=== PATIENT | female | born 1950 | race Caucasian/White ===

== ENCOUNTER 2018-12-21 08:32 | Observation (INO) ==
[2018-12-21] MEDS ORDERED: CATAPRES TAB 0.1 MG PO ONE (09:05)
[2018-12-21] MEDS ORDERED: CATAPRES TAB 0.1 MG ONE (09:12)
--- NOTE | 2018-12-21 09:16 | DR.DIZZY ---
HPI Time seen Time Seen by Provider: 12/21/18 08:46 PCP Primary Care Physician: NILESH Gilbert NAIL GALVANIZER Complaint Chief Complaint Doctor Comments: 68yo female presented for dizziness. Pt reports waking up around 6am and feeling lightheaded and impaired balance. She reports also feeling nauseated. Denies worsening with change of position but worse with ambulation. She has no pain. Denies any OZUNA, vision changes, focal weakness, CP or SOB. She has not been taking her BP medication for some time and today decided to take it. She is also DM and metformin and has neuropathy. Chief Complaint:: PT C/O WAKING UP THIS AM AND STAGGERING AND FEELING DIZZY, PT DENIES ANY PAIN AND STATES SHE TOOK HER BLOOD SUGAR AT HOME 108 ..BR Self Treatment fo Chief Complaint: PT STATES SHE TOOK 2 B/P MEDS THIS AM THINKING IT WAS HER B/P AND THAT SHE HAS NOT BEEN TAKING THEM ,BR Nurses Notes Reviewed Nurses Notes Review: Yes Source History Provided: Patient Mode of Arrival Mode of Arrival: Ambulatory Timing Onset of Chief Complaint: 12/21/18 Came on: On Awakening Symptom Onset: Unknown Duration Duration: Constant Duration: Hours Location of Weakness Weakness Location: None Context Onset: With light exertion Does pt take pot. toxic medication?: No History of: DM; denies CVA and TIA Stroke Symptoms: Ataxia and Dizziness; denies Aphasia, Weakness of limb, Numbness of limbs and Slurring Severity Severity: Normal activity level Modifying factors Worsens: Other (walking); denies Change in Position and Turning Head Associated signs and symptoms Associated Signs and Symptoms: Imbalance and Nausea; denies Near Syncope, Vertigo, Numb, Change of Vision, Fever, Headache and Vomiting PMH PMH Past Medical History: Yes Past Medical History: Diabetes, Dyslipidemia, Headaches, Hypertension and Hypothyroidism Past Surgical History: Yes Surgical History: Cholecystectomy and SECRETARY RECEPTIONIST Surgery Past Surgical History Comment: TUBAL . Family History History of Family Medical Conditions: No Family Medical History: Diabetes Mellitus and Hypertension Social History Does patient currently use any type of tobacco product: No Have you used tobacco products in the last 12 months: No Type of Tobacco Use: None Does any household member use tobacco: No Alcohol Use: None Do you use any recreational Drugs:: No Lives With: Family Lives Where: Home infectious screening In the last 2 months have you had wt loss of >10#?: NO Have you had fever, night sweats or hemotysis?: No Have you traveled outside the country in the last 6 months?: No Isolation: Standard ROS Review of Systems Constitutional: No Symptoms Reported; negative Fever, Weakness and Fatigue Eyes: negative Blurred Vision and Photophobia ENTM: negative Nose Congestion Respiratoy: negative Short of Breath Cardiovascular: negative Chest Pain Gastrointestinal/Abdominal: Diarrhea and Nausea; negative Abdominal Pain and V omiting Neurological: Problems Walking; negative Headache, Numbness and Weakness Musculoskeletal: negative Joint Swelling and Muscle Pain Integumentary: negative Wound Hematologic/Lymphatic: negative Lymphadenopathy Endocrine: Increased Thirst and Increased Urine; negative Decreased Appetite Psychiatric: negative Depression All Other Systems: Reviewed and Negative PE Vital Signs Vitals: Temperature 97.3 F Pulse Rate 82 Respiratory Rate 18 Blood Pressure [Left Arm] 131/68 Blood Pressure 192/85 O2 Sat by Pulse Oximetry 99 General Limitations: No Limitations General Appearance: Alert and In No Apparent Distress Head Head Exam: Normal Inspection, Atraumatic and Normocephalic Eyes Eye exam: Normal Appearance, PERRL and EOMI; negative Scleral Icterus and Nystagmus Pupils: Regular, Round: Left ENT ENT Exam: Normal Exam, Normal Oropharynx, Normal External Ear Exam, Mucous Membranes Moist and TM's Normal Bilaterally Neck Neck Exam: Normal Inspection and Full ROM; negative Tenderness, Meningismus and Lymphadenopathy Respiratory Respiratory Exam: Normal Lung Sounds Bilat; negative Respiratory Distress Respiratory Exam: Bilateral: Clear to Auscultation Cardiovascular Cardiovascular Exam: Regular Rate Abdominal Exam Abdominal Exam: Normal Inspection, Normal Bowel Sounds and Soft; negative Distention and Tenderness Extremeties Extremities Exam: Normal Inspection and Full ROM; negative Tenderness and Normal Capillary Refill Neurologic Neurological Exam: Alert, Oriented X3, CN II-XII Intact, Normal Gait and Reflexes Normal; negative Motor Sensory Deficit Patient Oriented To: Person, Place and Time Speech: Fluid Speech Cranial Nerve Exam: EOM Function (II, III, IV, ): Normal, Facial Sensation (V): Normal, Facial Palsy (VII): Normal, Spinal Accessory Function (XI): Normal and Tongue Deviation: Normal Cerebellar Function: Finger to Nose: Normal and Heel to Benitez: Normal Cerebellar Function: Normal Gait Motor Strength - LUE: 5/5 Motor Strength - RUE: 5/5 Motor Strength - LLE: 5/5 Motor Strength - RLE: 5/5 Psychiatric Psychiatric Exam: Normal Affect and Normal Mood Skin Skin Exam: Warm and Dry MDM Additional Information Obtained Additional Information Obtained From: Old Records Differential Diagnosis Differential Diagnosis: CVA, TIA, Central Vertigo and Other (abdominal pain) COURSE Reevaluation 1st: Unchanged (pt still reports lightheadness and difficulty walking/nauseated and BP still elevated after Clonidine. Will give Hydralazine 10mg x1. D/w pt labs and imaging. Will cosnult Dr. Roa for admission.) Consultation Consultation Comments: 10:50am: spoke to dr. Roa and will admit and see in Hospital Education/Counseling Education/Counseling: Patient, Education and Counseling Educated On: Treatment, Diagnosis, Prognosis and Needs for Follow Up (pcp) ROR Labs Reviewed Laboratory Results Reviewed?: Yes Result Diagrams: 12/21/18 09:19 12/21/18 09: Laboratory: WBC 7.8 X10^3/uL (3.6-10.0) 12/21/18 09: RBC 3.99 X10^6/uL (3.5-5.4) 12/21/18 09: Hgb 12.9 g/dL (12.0-16.0) 12/21/18 09: Hct 36.8 % (36.0-47.0) 12/21/18 09: MCV 92.1 fL (80.0-100.0) 12/21/18: MCH 32.2 pg (27.0-34.0) 12/21/18 09: MCHC 35.0 g/dL (33.0-35.0) 12/21/18: RDW 13.0 % (11.6-16.5) 12/21/18: Plt Count 205 X10^3/uL (150.0-450.0) 12/21/18 09: MPV 8.2 fL (7.4-11.0) 12/21/18: Neut % (Auto) 78.8 % (42.0-75.0) H 12/21/18 09: Lymph % (Auto) 15.1 % (21.0-51.0) L 12/21/18: [place] % (Auto) 3.9 % (0.0-13.0) 12/21/18: Eos % (Auto) 1.8 % (0.9-2.9) 12/21/18 09:19 Baso % (Auto) 0.4 % (0.2-1.0) 12/21/18 09:19 Neut # (Auto) 6.2 x10^3/uL (2.2-4.8) H 12/21/18 09:19 Lymph # (Auto) 1.2 X10^3/uL (1.3-2.9) L 12/21/18 09:19 [place] # (Auto) 0.3 x10^3/uL (0.3-0.8) 12/21/18 09:19 Eos # (Auto) 0.1 x10^3/uL (0.0-0.2) 12/21/18 09:19 Baso # (Auto) 0.0 X10^3/uL (0.0-0.1) 12/21/18 09:19 Absolute Nucleated RBC 0.0 /100WBC 12/21/18 09:19 Sodium 137 mmol/L (136-145) 12/21/18 09:19 Corrected Sodium 138 mmol/L (136-145) 12/21/18 09:19 Potassium 3.5 mmol/L (3.5-5.1) 12/21/18 09:19 Chloride 105 mmol/L (98-107) 12/21/18 09:19 Carbon Dioxide 25.1 mmol/L (21-32) 12/21/18 09:19 BUN 17 mg/dL (7-18) 12/21/18 09:19 Creatinine 1.20 mg/dL (0.55-1.02) H 12/21/18 09:19 Est GFR (MDRD) Af Amer 58 (>60) L 12/21/18 09:19 Est GFR (MDRD) Non-Af 48 (>60) L 12/21/18 09:19 Glucose 122 mg/dL (65-99) H 12/21/18 09:19 Calcium 8.7 mg/dL (8.5-10.1) 12/21/18 09:19 Other Results Comments: CBC wnl BMP Cr 1.20 GFR [address] head: NAF, old lucanar infract XRAY XRAY Interpreted by: Radiologist EKG Rate: 88 [place]: Normal Rhythm: NSR Block: None Hypertrophy: None ST: Normal (no prior ekg available for comparison. 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 Patient educated on their health issue. They verbalized their understanding and agreed with plan of care. Rx given: Condition: Stable Disposition: Admit
[2018-12-21] MEDS ORDERED: ZOFRAN INJ 4 MG VIAL IVP ONE (09:34)
[2018-12-21] MEDS ORDERED: NS 500 ML IV 500 ML IV ONE (09:34)
[2018-12-21 09:36] LABS: BASOPHILS % (AUTO) 0.4 % (0.2-1.0); EOSINOPHILS # (AUTO) 0.1 x10^3/uL (0.0-0.2); EOSINOPHILS % (AUTO) 1.8 % (0.9-2.9); HEMATOCRIT 36.8 % (36.0-47.0); HEMOGLOBIN 12.9 g/dL (12.0-16.0); LYMPHOCYTES # (AUTO) 1.2 X10^3/uL (1.3-2.9); LYMPHOCYTES % (AUTO) 15.1 % (21.0-51.0); MEAN CORPUSCULAR HEMOGLOBIN 32.2 pg (27.0-34.0); MEAN CORPUSCULAR VOLUME 92.1 fL (80.0-100.0); MEAN PLATELET VOLUME 8.2 fL (7.4-11.0); MONOCYTES # (AUTO) 0.3 x10^3/uL (0.3-0.8); MONOCYTES % (AUTO) 3.9 % (0.0-13.0); NEUTROPHILS # (AUTO) 6.2 x10^3/uL (2.2-4.8); NEUTROPHILS % (AUTO) 78.8 % (42.0-75.0); PLATELET COUNT 205 X10^3/uL (150.0-450.0); RED BLOOD COUNT 3.99 X10^6/uL (3.5-5.4); WHITE BLOOD COUNT 7.8 X10^3/uL (3.6-10.0)
[2018-12-21 09:40] LABS: CALCIUM 8.7 mg/dL (8.5-10.1); CARBON DIOXIDE 25.1 mmol/L (21-32); CREATININE 1.2 mg/dL (0.55-1.02)
--- NOTE | 2018-12-21 09:54 | CT ---
HISTORY: Impaired balance Study: CT head without contrast Comparison: None Technique: Axial noncontrast images with coronal and sagittal reformats. Dose reduction procedures were used with mA/kv adjusted for body size. Findings: The ventricles are normal in size shape and position. There is decreased attenuation in the periventricular white matter suggestive of small vessel vascular disease. There is an old lacunar infarct in the left centrum semiovale. There is no evidence for visible recent CVA, hemorrhage, mass lesion, or extra-axial fluid collection. The visualized sinuses are clear. The calvarium is intact. IMPRESSION: No acute intracranial abnormality Small vessel disease Old lacunar infarct left centrum semiovale Reported By:
[2018-12-21] MEDS ORDERED: NS 1000 ML 1,000 ML ONE (09:56)
[2018-12-21] MEDS ORDERED: ZOFRAN INJ 4 MG VIAL ONE (09:56)
[2018-12-21] MEDS ORDERED: APRESOLINE INJ 20 MG VIAL IVP ONE (10:45)
[2018-12-21] MEDS ORDERED: APRESOLINE INJ 20 MG VIAL ONE (10:51)
[2018-12-21] MEDS ORDERED: APRESOLINE INJ 20 MG VIAL IVP PRN (10:56)
[2018-12-21] MEDS ORDERED: ZOFRAN INJ 4 MG VIAL IVP PRN (11:03)
--- NOTE | 2018-12-21 13:28 | MRI ---
HISTORY: Impaired balance, hypertension, weakness Study: MRI Brain without contrast Comparison: Head CT same day Technique: Multiplanar multi-sequence MRI of the brain was performed with standard departmental protocol Findings: There is generalized cerebral volume loss with moderate to advanced scattered hyperintense signal foci throughout the subcortical and periventricular white matter bilaterally compatible with microvascular ischemic changes. No evidence of mass or intracranial hemorrhage. There is a focal area of restricted diffusion in the right thalamus compatible with acute infarct.No extra-axial fluid collections are observed. The ventricular system appears symmetric and nondilated. No cerebellopontine angle mass identified. Please note evaluation is limited without IV contrast. The T2 flow voids appear normal. The midline structures appear unremarkable. The soft tissues are intact. The visualized paranasal sinuses and mastoid air cells are clear. S orbits and globes are unremarkable. IMPRESSION: 1. Findings compatible with acute infarction in the right thalamus. No evidence to suggest hemorrhage. 2. Moderate to advanced chronic microvascular ischemic changes. Reported By:
--- NOTE | 2018-12-21 13:34 | MRI ---
HISTORY: Impaired balance, elevated blood pressure, weakness Study: MRA head without contrast Comparison: MRI brain same day Technique: 3-D [id number] imaging of the intracranial circulation was performed. Findings: There is diffuse narrowing of the visualized portions of the left ICA within the cavernous and petrous portions with loss of flow signal in the distal cavernous portion. 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 However underlying acute dissection or other cause of stenosis cannot be completely excluded. There is normal flow within the bilateral ACAs and MCAs. Vertebrobasilar system appears normal. Posterior cerebral arteries are grossly unremarkable. No aneurysm or vascular malformation is identified. IMPRESSION: 1. Diffuse narrowing of the left ICA within the cavernous and petrous portions with loss of flow signal in distal cavernous portion. 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 An underlying dissection or other cause of stenosis cannot be completely excluded. CTA of the neck recommended. Reported By:
[2018-12-21] MEDS: ASPIRIN PO SCH (13:47)
[2018-12-21 13:48] VITALS: BMI 34.9
--- NOTE | 2018-12-21 14:02 | VAS ---
HISTORY: Impaired balance, elevated blood pressure, weakness Study: Bilateral carotid Doppler ultrasound Comparison: No priors Technique: Grayscale, color and duplex Doppler ultrasound evaluation of the cervical carotid arteries is provided. Findings: Carotid and vertebral arteries flow cephalad bilaterally. Atherosclerotic plaque materials are seen involving the right carotid bulb in the left mid CCA regions. Peak systolic arterial velocity in right ICA is 107.4 centimeters/second with an ICA/CCA ratio of 1.22. Peak systolic arterial velocity in the left ICA is 96.1 centimeters/second with an ICA/CCA ratio of 1.20. IMPRESSION: Less than 50% carotid stenosis bilaterally. Reported By:
[2018-12-21] MEDS ORDERED: GLUCOPHAGE ONE (19:58)
[2018-12-21] MEDS: PRAVACHOL PO SCH (20:21)
[2018-12-21] MEDS ORDERED: GLUCOPHAGE PO SCH (21:00)
[2018-12-22 06:34] LABS: CALCIUM 8.6 mg/dL (8.5-10.1); CARBON DIOXIDE 24.1 mmol/L (21-32); CHOL/HDL RATIO 4.6 (0.0-5.0); CREATININE 1.3 mg/dL (0.55-1.02)
[2018-12-22] MEDS ORDERED: K-DUR TAB 20 MEQ PO PRN (07:19)
[2018-12-22] MEDS ORDERED: POTASSIUM CHL 60 MEQ/NS 0.45% 500 ML IV PRN (07:19)
[2018-12-22] MEDS ORDERED: MICRO K EXTEN CAP 10 MEQ PO PRN (07:19)
[2018-12-22] MEDS ORDERED: POTASSIUM CHL 40 MEQ/NS 0.45% 500 ML IV PRN (07:19)
[2018-12-22] MEDS ORDERED: KLOR-CON PO PRN (07:19)
[2018-12-22] MEDS ORDERED: K-RIDER 10 MEQ/NS 100 ML 10 MEQ/100 ML BAG IV PRN (07:19)
[2018-12-22] MEDS ORDERED: POTASSIUM CHLORIDE LIQ 20 MEQ UDC PO PRN (07:19)
[2018-12-22] MEDS ORDERED: GLUCOPHAGE ONE (07:27)
[2018-12-22] MEDS ORDERED: AFLURIA II4 or FLUARIX II4 IM ONE (08:21)
[2018-12-22] MEDS ORDERED: PREVNAR 13 IM ONE (08:21)
[2018-12-22] MEDS: GLUCOPHAGE PO SCH (08:38)
[2018-12-22] MEDS: ASPIRIN PO SCH (08:38)
[2018-12-22] MEDS: SYNTHROID 150 mcg TAB PO SCH (08:38)
[2018-12-22] MEDS ORDERED: LR 1000 ML IV 1,000 ML IV ONE (09:03)
[2018-12-22 10:57] LABS: CALCIUM 8.7 mg/dL (8.5-10.1); CARBON DIOXIDE 27.9 mmol/L (21-32); CREATININE 1.4 mg/dL (0.55-1.02)
[2018-12-22] MEDS ORDERED: NS 1000 ML 1,000 ML IV ONE (12:56)
[2018-12-22] MEDS ORDERED: NS 1000 ML 1,000 ML ONE (13:02)
[2018-12-22 16:34] LABS: BLOOD UREA NITROGEN 19 mg/dL (7-18); CALCIUM 8.5 mg/dL (8.5-10.1); CARBON DIOXIDE 27.8 mmol/L (21-32); CHLORIDE 108 mmol/L (98-107); CREATININE 1.29 mg/dL (0.55-1.02); SODIUM 140 mmol/L (136-145); eGFR NON BLACK RACES 44 (>60)
[2018-12-22] MEDS: NS 1000 ML 1,000 ML IV SCH ×2 (17:57→23:39)
[2018-12-22] MEDS: PRAVACHOL PO SCH (20:22)
[2018-12-22] MEDS ORDERED: ZESTRIL TAB 40 MG PO ONE (20:52)
[2018-12-22] MEDS ORDERED: ZESTRIL TAB 40 MG ONE (20:53)
[2018-12-23] MEDS: NS 1000 ML 1,000 ML IV SCH ×3 (01:32→12:08)
[2018-12-23 06:14] LABS: BLOOD UREA NITROGEN 16 mg/dL (7-18); CALCIUM 8.1 mg/dL (8.5-10.1); CARBON DIOXIDE 21.7 mmol/L (21-32); CHLORIDE 110 mmol/L (98-107); CREATININE 1.02 mg/dL (0.55-1.02); SODIUM 141 mmol/L (136-145); eGFR NON BLACK RACES 58 (>60)
[2018-12-23] MEDS ORDERED: MAGNESIUM SULFATE 1 GRAM/100 mL PREMIX 1 GM/100 ML BAG IV PRN (06:36)
--- NOTE | 2018-12-23 08:48 | CT ---
HISTORY: Abnormal left carotid artery Study: CT angiography of the neck Comparison: None Technique: Multiple axial images of the neck obtained after the administration of IV contrast using CTA protocol. 3D reconstructions were performed utilizing radial maximum intensity projection imaging. Dose reduction techniques including Automated Exposure Control (AEC) and adjustment of mA and kV were utilized. Findings: There is calcified plaque at the right carotid bifurcation with less than 50% stenosis by NASCET criteria. The distal ICA the skull base and cavernous portion is patent without stenosis. The left ICA is not visualized at its bifurcation and appears severely hypoplastic or possibly occluded proximally. Distally there is a very thin, small caliber left ICA at the skull base with what appears to be congenital narrowing of the petrous canal. The cavernous left ICA is also very small caliber and poorly opacified. The left ECA branches appear patent. The bilateral vertebral arteries are patent throughout their course. The left vertebral artery arises directly from the aortic arch. There are emphysematous changes present at the lung apices. There is no thyroid tissue visualized on the left which could be congenital or due to partial thyroidectomy. There are degenerative changes of the cervical spine noted with multilevel foraminal stenosis. IMPRESSION: 1. Left ICA is not visualized at the bifurcation and appears severely hypoplastic and may be occluded proximally. Distally the left ICAs is a very thin, small caliber vessel with congenital narrowing of the petrous canal at the skull base. Cavernous left ICA is likewise hypoplastic in appearance and poorly opacified. 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 2. Calcified plaque at the right bifurcation without evidence of significant ICA stenosis. 3. Patent bilateral vertebral arteries. Reported By:
[2018-12-23] MEDS ORDERED: TOPROL XL PO SCH (10:00)
[2018-12-23] MEDS: SYNTHROID 150 mcg TAB PO SCH (10:01)
[2018-12-23] MEDS: GLUCOPHAGE PO SCH (10:02)
[2018-12-23] MEDS: ASPIRIN PO SCH (10:02)
[2018-12-23] MEDS ORDERED: ZESTRIL TAB 40 MG ONE (11:46)
[2018-12-23] MEDS ORDERED: ZESTRIL TAB 40 MG PO SCH ×2 (12:00→17:00)
[2018-12-23 13:56] VITALS: BP 166/75
== END 2018-12-23 14:10 | disposition home health service (06) ==
LOC: ER 08:38 → MED/SURG 08:38
PROVIDERS: ADMIT Obstetrics & Gynecology Obstetrics; ATTEND Obstetrics & Gynecology Obstetrics
DX: Z23 Encounter for immunization; N18.3 Chronic kidney disease, stage 3 (moderate); R42 Dizziness and giddiness; E03.8 Other specified hypothyroidism; R53.1 Weakness; I63.89 Other cerebral infarction; E11.65 Type 2 diabetes mellitus with hyperglycemia; R26.89 Other abnormalities of gait and mobility; I25.10 Atherosclerotic heart disease of native coronary artery without angina pectoris; I16.0 Hypertensive urgency; E78.2 Mixed hyperlipidemia; E11.42 Type 2 diabetes mellitus with diabetic polyneuropathy
CPT/HCPCS: 36415; 70450; 70498; 70544; 70551; 80048; 80061; 83735; 85025; 90674; 90686; 93005; 93880; 96365; 96367; 96372; 96374; 96375; 97110; 97162; 97166; 97530; 99284; A4222; 90670; G0378; J0360; J2405; J7030; J7120

== ENCOUNTER 2018-12-24 20:42 | Observation (INO) ==
[2018-12-24] MEDS ORDERED: CATAPRES TAB 0.2 MG PO ONE (22:00)
--- NOTE | 2018-12-24 22:05 | DR.GENAD ---
HPI - PCP Primary Care Physician: MRS. GALLOWAY - Complaint/Symptoms Chief Complaint Doctors Comments: Patient is complaining of her blood pressure being elevated and feeling weak. States she was in the hospital three days ago and released yesterday with a light stroke. states Dr. Galloway released her and she had MRI and CT scans. She denies headache, dizziness, nausea or vomiting. She denies chest pain, cold, cough, edema, diarrhea or hematuria. She denies tobacco or alcohol usage. States she was discharged on Lisinopril 40mg, metroprolol 50mg and ASA. States she has had her medicines for today. Chief Complaint:: PATIENT HAD A "LIGHT STROKE" AND WAS ADMITTED TO HOSPITAL ON WEDNESDAY (12/21/18) AND DISCHARGED ON WEDNESDAY (12/23/18). TODAY PATIENT HAS BEEN WEAK AND BLOOD PRESSURE HAS BEEN ELEVATED. CURRENTLY IN TRIAGE BP = 229/95; HR = 56 Self Treatment fo Chief Complaint: PATIENT HAS TAKEN DAILY MEDS. LISINOPRIL 40MG DAILY. METOPROLOL 50MG DAILY. ASA 81MG DAILY - Nurses notes reviewed Nurses Notes Review: Yes - Source History Provided: Patient - Mode of Arrival Mode of Arrival: Wheelchair - Timing Onset of Chief Complaint: 12/24/18 Came on: Gradually - Duration Duration: Constant Duration: Days - Location Location: [facility] blood pressure - Severity Severity: Moderate - Modifying Factors Worsens:: nothing Improves:: nothing PMH - PMH Past Medical History: Yes Past Medical History: CVA, Hyperthyroidism Past Surgical History: No Surgical History: Cholecystectomy - Family History History of Family Medical Conditions: No Family Medical History: Diabetes Mellitus, Hypertension - Social History Alcohol Use: None Do you use any recreational Drugs:: No - infectious screening Have you traveled outside the country in the last 6 months?: No Isolation: Standard ROS - Review of Systems Constitutional: No Symptoms Reported, Weakness Eyes: No Symptoms Reported. negative: See HPI, Eye Pain, Blurred Vision, Tearing, Discharge, Photophobia, Diplopia, Other ENTM: No Symptoms Reported Respiratoy: No Symptoms Reported. negative: See HPI, Productive Cough, Non- Productive Cough, Moist Cough, Dry Cough, Hacking Cough, Barking Cough, Brassy Cough, Orthopnea, Short of Breath, Stridor, Wheezing, Hemoptysis, Other Cardiovascular: No Symptoms Reported. negative: See HPI, Chest Pain, Edema, Palpitations, Syncope, Cyanosis, Skin Mottling, Other Gastrointestinal/Abdominal: No Symptoms Reported. negative: See HPI, Abdominal Pain, Constipation, Diarrhea, Nausea, Vomiting, Food Intolerance, Other Genitourinary: No Symptoms Reported Neurological: No Symptoms Reported Musculoskeletal: No Symptoms Reported Integumentary: No Symptoms Reported Hematologic/Lymphatic: No Symptoms Reported. negative: See HPI, Anemia, Blood Clots, Easy Bleeding, Easy Bruising, Swollen Glands, Lymphadenopathy, Other Endocrine: No Symptoms Reported Psychiatric: No Symptoms Reported. negative: See HPI, Anxiety, Depression, Hallucinations, Excessive crying, Suicidal, Other PE - General Limitations: No Limitations General Appearance: Alert, In No Apparent Distress - Head Head Exam: Normal Inspection, Atraumatic, Normocephalic - Eyes Eye exam: Normal Appearance, PERRL, EOMI. negative: Scleral Icterus, Conjunctival Injection, Nystagmus, Miosis, Mydrasis, Periorbital Swelling, Perio rbital Tenderness, Other - ENT ENT Exam: Normal Exam, Normal Oropharynx, Normal External Ear Exam, Mucous Membranes Moist, TM's Normal Bilaterally External Ear Exam: Normal External Inspection TM/Canal Exam: Bilateral Normal Nose Exam: Normal Nose Exam Mouth Exam: Normal Inspection. negative: Drooling, Trismus, Lip Swelling, Tongue Elevation, Tongue Swelling, Laceration, Other Throat Exam: Normal Inspection - Neck Neck Exam: Normal Inspection, Full ROM, Trachea Midline. negative: Tenderness, Meningismus, Lymphadenopathy, Thyromegaly, Other - Chest Chest Inspection: Normal Inspection, Symmetric Chest Wall Rise - Respiratory Respiratory Exam: Normal Lung Sounds Bilat Respiratory Exam: Bilateral Clear to Auscultation - Cardiovascular Cardiovascular Exam: Regular Rate, Normal Rhythm, Normal Heart Sounds, Systolic Murmur - Abdominal Exam Abdominal Exam: Normal Inspection, Normal Bowel Sounds, Soft. negative: Distention, Tenderness, Guarding, Rebound, Rigidity, Dimnished Bowel Sounds, Hyperactive Bowel Sounds, Hypoactive Bowel Sounds, Organomegaly, Trauma, Incision, Ascites, Mass, Bruit, Pulsatile Mass, Hernia, Other Abdominal Tenderness: negative: RUQ, RLQ, LUQ, LLQ, Epigastrium, Suprapubic, Diffuse, Mild, Moderate, Severe, Other - Extremities Extremities Exam: Normal Inspection, Full ROM, Normal Capillary Refill. negative: Tenderness, Edema, Joint Swelling, Calf Tenderness, Other - Back Back Exam: Normal Inspection, Full ROM. negative: Tenderness, (R) CVA Tenderness, (L) CVA Tenderness, Muscle Spasm, Paraspinal Tenderness, Vertebral Tenderness, Rashes, (R) Sciatic Notch Tenderness, (L) Sciatic Notch Tendern, (R) Straight Leg Raise, (L) Straight Leg Raise, Other - Neurologic Neurological Exam: Alert, Oriented X3, CN II-XII Intact, Reflexes Normal. negative: Normal Gait (gait not tested) - Psychiatric Psychiatric Exam: Normal Affect, Normal Mood - Skin Skin Exam: Warm, Dry, Intact, Normal Color - Vital Signs Vitals: Temperature 98.5 F Pulse Rate [Apical] 52 Pulse Rate 50 Respiratory Rate 17 Blood Pressure [Right Arm] 131/63 Blood Pressure [Left Arm] 207/92 Blood Pressure 137/62 O2 Sat by Pulse Oximetry 95 ROR - Labs Reviewed Laboratory Results Reviewed?: Yes (All labs and x-ray results reviewed and discussed with patient) Result Diagrams: 12/24/18 22:17 12/24/18 22:17 - XRAY XRAY Interpreted by: Radiologist (CXR: Mild cardiomegaly without acute chest process), Both (CT head: Known acute infarct of right thalamus without evidence of hemorrhagic transformation) XRAY Findings: CT head: Stable age related atrohy, moderate microangiopathy and known acut - EKG Rate: 56 [place]: Normal Rhythm: SB Block: None ST: Infarct - Labs Reviewed Laboratory: WBC 8.0 X10^3/uL (3.6-10.0) 12/24/18 22:17 RBC 3.82 X10^6/uL (3.5-5.4) 12/24/18 22:17 Hgb 12.2 g/dL (12.0-16.0) 12/24/18 22:17 Hct 35.1 % (36.0-47.0) L 12/24/18 22:17 MCV 91.9 fL (80.0-100.0) 12/24/18 22:17 MCH 31.9 pg (27.0-34.0) 12/24/18 22:17 MCHC 34.7 g/dL (33.0-35.0) 12/24/18 22:17 RDW 13.2 % (11.6-16.5) 12/24/18 22:17 Plt Count 190 X10^3/uL (150.0-450.0) 12/24/18 22:17 MPV 8.2 fL (7.4-11.0) 12/24/18 22:17 Neut % (Auto) 67.5 % (42.0-75.0) 12/24/18 22:17 Lymph % (Auto) 22.2 % (21.0-51.0) 12/24/18 22:17 [place] % (Auto) 6.4 % (0.0-13.0) 12/24/18 22:17 Eos % (Auto) 3.2 % (0.9-2.9) H 12/24/18 22:17 Baso % (Auto) 0.7 % (0.2-1.0) 12/24/18 22:17 Neut # (Auto) 5.4 x10^3/uL (2.2-4.8) H 12/24/18 22:17 Lymph # (Auto) 1.8 X10^3/uL (1.3-2.9) 12/24/18 22:17 [place] # (Auto) 0.5 x10^3/uL (0.3-0.8) 12/24/18 22:17 Eos # (Auto) 0.3 x10^3/uL (0.0-0.2) H 12/24/18 22:17 Baso # (Auto) 0.1 X10^3/uL (0.0-0.1) 12/24/18 22:17 Absolute Nucleated RBC 0.0 /100WBC 12/24/18 22:17 PT 12.7 SECONDS (11.8-14.3) 12/24/18 22:17 INR Target Range - 12/24/18 22:17 INR 0.99 (0.8-1.3) 12/24/18 22:17 APTT 22.6 SECONDS (22.9-36.5) L 12/24/18 22:17 PTT Comment - 12/24/18 22:17 Sodium 138 mmol/L (136-145) 12/24/18 22:17 Corrected Sodium 139 mmol/L (136-145) 12/24/18 22:17 Potassium 3.7 mmol/L (3.5-5.1) 10/12/19 22:17 Chloride 104 mmol/L (98-107) 12/24/18 22:17 Carbon Dioxide 24.6 mmol/L (21-32) 12/24/18 22:17 BUN 18 mg/dL (7-18) 12/24/18 22:17 Creatinine 1.15 mg/dL (0.55-1.02) H 12/24/18 22:17 Est GFR (MDRD) Af Amer > 60 (>60) 12/24/18 22:17 Est GFR (MDRD) Non-Af 50 (>60) L 12/24/18 22:17 Glucose 123 mg/dL (65-99) H 12/24/18 22:17 Calcium 8.5 mg/dL (8.5-10.1) 12/24/18 22:17 Corrected Calcium 9.6 mg/dL (8.5-10.1) 12/24/18 22:17 Magnesium 1.7 mg/dL (1.7-2.9) 12/24/18 22:17 Total Bilirubin 0.30 mg/dL (0.2-1.0) 12/24/18 22:17 AST 22 Units/L (15-37) 12/24/18 22:17 ALT 16 Units/L (12-78) 12/24/18 22:17 Alkaline Phosphatase 81 Units/L (46-116) 12/24/18 22:17 Creatine Kinase 172 Units/L (26-192) 12/24/18 22:17 CK-MB (CK-2) 1.7 ng/mL (0-4.0) 12/24/18 22:17 CK/CKMB % Calc 1.0 % (<4) 12/24/18 22:17 Troponin I 0.03 ng/mL (0-1.5) 12/24/18 22:17 Total Protein 7.4 g/dL (6.4-8.2) 12/24/18 22:17 Albumin 2.6 g/dL (3.4-5.0) L 12/24/18 22:17 Globulin 4.8 g/dL (2.5-4.5) H 12/24/18 22:17 Albumin/Globulin Ratio 0.5 Ratio (1.1-2.1) L 12/24/18 22:17 Opioid - Opioid Risk Tool Age (Ganesh box if 16-45): No History of Preadolescent Sexual Abuse: No Total: 0 Total Score Risk Category: Low Risk - Diagnosis Discharge Problem: Accelerated hypertension, Cardiomegaly, Bradycardia, Acute thalamic infarction, Left hemiparesis Chronic kidney disease (CKD) Qualifiers: Chronic kidney disease stage: stage 3 (moderate) Qualified Code(s): N18.3 - Chronic kidney disease, stage 3 (moderate) Type 2 diabetes mellitus Qualifiers: Diabetes mellitus complication status: with kidney complications - Discharge Plan Disposition: ADMITTED INPATIENT Condition: Stable Prescriptions: amlodipine 2.5 mg PO DAILY PRN #30 tab PRN Reason: - Follow ups/Referrals Follow ups/Referrals: Donita Galloway [Primary Care Provider] - 3 days - Instructions Instructions: How to Take Your Blood Pressure, [id number], Chronic Kidney Disease, Adult, [id number], Hypertension, [id number] Forms: Excuse From Work, Patient Portal
[2018-12-24] MEDS ORDERED: CATAPRES TAB 0.2 MG ONE (22:07)
--- NOTE | 2018-12-24 22:17 | RAD ---
Chest, one view Indication: Chest pain Comparison: 07/08/2012 Findings: Accounting for AP technique, the cardiac silhouette is mildly enlarged without congestive failure. No focal infiltrate or significant effusion is identified. No pneumothorax. Impression: Mild cardiomegaly without acute chest process. Reported By:
[2018-12-24 22:31] LABS: BASOPHILS # (AUTO) 0.1 X10^3/uL (0.0-0.1); BASOPHILS % (AUTO) 0.7 % (0.2-1.0); EOSINOPHILS # (AUTO) 0.3 x10^3/uL (0.0-0.2); EOSINOPHILS % (AUTO) 3.2 % (0.9-2.9); HEMATOCRIT 35.1 % (36.0-47.0); HEMOGLOBIN 12.2 g/dL (12.0-16.0); LYMPHOCYTES # (AUTO) 1.8 X10^3/uL (1.3-2.9); LYMPHOCYTES % (AUTO) 22.2 % (21.0-51.0); MEAN CORPUSCULAR HEMOGLOBIN 31.9 pg (27.0-34.0); MEAN CORPUSCULAR HGB CONC 34.7 g/dL (33.0-35.0); MEAN CORPUSCULAR VOLUME 91.9 fL (80.0-100.0); MEAN PLATELET VOLUME 8.2 fL (7.4-11.0); MONOCYTES # (AUTO) 0.5 x10^3/uL (0.3-0.8); MONOCYTES % (AUTO) 6.4 % (0.0-13.0); NEUTROPHILS # (AUTO) 5.4 x10^3/uL (2.2-4.8); NEUTROPHILS % (AUTO) 67.5 % (42.0-75.0); PLATELET COUNT 190 X10^3/uL (150.0-450.0); RED BLOOD COUNT 3.82 X10^6/uL (3.5-5.4); RED CELL DISTRIBUTION WIDTH 13.2 % (11.6-16.5)
[2018-12-24 22:50] LABS: ALANINE AMINOTRANSFERASE 16 Units/L (12-78); ALBUMIN 2.6 g/dL (3.4-5.0); ALKALINE PHOSPHATASE 81 Units/L (46-116); ASPARTATE AMINO TRANSFERASE 22 Units/L (15-37); BLOOD UREA NITROGEN 18 mg/dL (7-18); CALCIUM 8.5 mg/dL (8.5-10.1); CARBON DIOXIDE 24.6 mmol/L (21-32); CHLORIDE 104 mmol/L (98-107); COR CA(FOR HYPOALB) 9.6 mg/dL (8.5-10.1); COR NA(FOR HYPERGLY) 139 mmol/L (136-145); CREATINE KINASE 172 Units/L (26-192); CREATINE KINASE MB 1.7 ng/mL (0-4.0); CREATININE 1.15 mg/dL (0.55-1.02); MAGNESIUM 1.7 mg/dL (1.7-2.9); SODIUM 138 mmol/L (136-145); TOTAL PROTEIN 7.4 g/dL (6.4-8.2); TROPONIN I 0.03 ng/mL (0-1.5); eGFR NON BLACK RACES 50 (>60)
--- NOTE | 2018-12-25 01:21 | CT ---
CT head without contrast Indication: 'Left arm weakness, blood pressure' Technique: Helical CT images of the brain were obtained without IV contrast. Reformatted images in the coronal and sagittal planes were also generated for review. Comparison: 12/21/2018 Findings: Age related atrophy and moderate microangiopathy appears overall unchanged since prior exam. Focus of hypoattenuation within the right thalamus, compatible with known acute infarct appears stable given differences in technique without evidence of hemorrhagic transformation. Remaining pugh-white differentiation is maintained. No additional acute visible infarction is identified. There is no intracranial hemorrhage, extra-axial collection, hydrocephalus or mass. Visualized paranasal sinuses and mastoid air cells are clear. Imaged extracranial structures are grossly unremarkable. Impression: Stable age related atrophy, moderate microangiopathy and known acute infarct of the right thalamus without evidence of hemorrhagic transformation. Reported By:
[2018-12-25 03:57] LABS: BASOPHILS % (AUTO) 0.8 % (0.2-1.0); EOSINOPHILS # (AUTO) 0.2 x10^3/uL (0.0-0.2); EOSINOPHILS % (AUTO) 2.8 % (0.9-2.9); HEMATOCRIT 32.1 % (36.0-47.0); HEMOGLOBIN 11.3 g/dL (12.0-16.0); LYMPHOCYTES # (AUTO) 1.2 X10^3/uL (1.3-2.9); LYMPHOCYTES % (AUTO) 19.6 % (21.0-51.0); MEAN CORPUSCULAR HEMOGLOBIN 32.3 pg (27.0-34.0); MEAN CORPUSCULAR HGB CONC 35.1 g/dL (33.0-35.0); MEAN CORPUSCULAR VOLUME 91.8 fL (80.0-100.0); MEAN PLATELET VOLUME 8.4 fL (7.4-11.0); MONOCYTES # (AUTO) 0.3 x10^3/uL (0.3-0.8); MONOCYTES % (AUTO) 5.8 % (0.0-13.0); NEUTROPHILS # (AUTO) 4.2 x10^3/uL (2.2-4.8); PLATELET COUNT 175 X10^3/uL (150.0-450.0); WHITE BLOOD COUNT 5.9 X10^3/uL (3.6-10.0)
[2018-12-25] MEDS ORDERED: ZESTRIL TAB 40 MG PO SCH (04:00)
[2018-12-25 04:11] LABS: ALANINE AMINOTRANSFERASE 14 Units/L (12-78); ALBUMIN 2.3 g/dL (3.4-5.0); ALKALINE PHOSPHATASE 74 Units/L (46-116); ASPARTATE AMINO TRANSFERASE 22 Units/L (15-37); BLOOD UREA NITROGEN 17 mg/dL (7-18); CALCIUM 8.4 mg/dL (8.5-10.1); CHLORIDE 106 mmol/L (98-107); CHOL/HDL RATIO 3.9 (0.0-5.0); COR CA(FOR HYPOALB) 9.8 mg/dL (8.5-10.1); COR NA(FOR HYPERGLY) 140 mmol/L (136-145); CREATININE 1.15 mg/dL (0.55-1.02); SODIUM 139 mmol/L (136-145); TOTAL PROTEIN 6.7 g/dL (6.4-8.2); eGFR NON BLACK RACES 50 (>60)
[2018-12-25] MEDS ORDERED: HumuLIN R SUBCUT PRN (04:43)
[2018-12-25 05:21] VITALS: BMI 34.5
[2018-12-25] MEDS: SYNTHROID 150 mcg TAB PO SCH (06:40)
[2018-12-25] MEDS ORDERED: GLUCOPHAGE ONE (09:18)
[2018-12-25] MEDS: NEURONTIN CAP 300 MG PO SCH ×2 (10:00→20:40)
[2018-12-25] MEDS: GLUCOPHAGE PO SCH ×2 (10:25→20:40)
[2018-12-25] MEDS: TOPROL XL PO SCH ×2 (10:26→13:05)
[2018-12-25] MEDS: ASPIRIN 81 MG CHEWTAB PO SCH (10:47)
--- NOTE | 2018-12-25 10:49 | DR.H&P ---
H&P History & Physical for Day of: H&P Date: 12/25/18 Chief Complaint Chief Complaint: elevated BP Allergies Allergies Allergy/AdvReac Type Severity Reaction Status Date / Time No Known Drug Allergies Allergy Verified 12/21/18 08:43 History of Present Illness History of Present Illness: Ms. Lara is a 68y/o discharged on Wednesday after having a thalamic stroke. She presented last night with elevated BP, SBP in 200s. She received clonidine and her BP normalized and she was ready for discharge from ED but it was noted by the nursing staff that she was very weak and could not stand up. On recent admission, she was found to have left sided weakness due to stroke, MRI showed acute right thalamus infarction. MRA, CTA neck showed left ICA high grade stenosis and she was suppose to follow up with Dr. Sanz. Patient reports that her daughter noticed that her BP was high yesterday and she felt like her left sided weakness had gotten worse. Daughter also noted slurred speech. Brain CT showed the prev right thalamic infarction as stable without hemorrhagic conversion. Patient has been on asa, Lisinopril and Toprol. Past Medical History Past Medical History: CVA, Hypertension and Hyperthyroidism Past Surgical History Surgical History: Cholecystectomy Family History Family Medical History: Diabetes Mellitus and Hypertension Social History Does patient currently use any type of tobacco product: No Have you used tobacco products in the last 12 months: No Type of Tobacco Use: Cigarettes Does any household member use tobacco: No Alcohol Use: None Drug Use: None Prescription drug monitoring program results: PDMP was not reviewed Medications Home Medications: No Known Drug Allergies Allergy (Verified 12/21/18 08:43) New Prescriptions amlodipine 2.5 mg PO DAILY PRN #30 tab 12/25/18 [Rx] Labs Result Diagrams: 12/25/18 03:42 12/25/18 03:42 Labs: Laboratory WBC 5.9 X10^3/uL (3.6-10.0) 12/25/18 03:42 RBC 3.50 X10^6/uL (3.5-5.4) 12/25/18 03:42 Hgb 11.3 g/dL (12.0-16.0) L 12/25/18 03:42 Hct 32.1 % (36.0-47.0) L 12/25/18 03:42 MCV 91.8 fL (80.0-100.0) 12/25/18 03:42 MCH 32.3 pg (27.0-34.0) 12/25/18 03:42 MCHC 35.1 g/dL (33.0-35.0) H 12/25/18 03:42 RDW 13.0 % (11.6-16.5) 12/25/18 03:42 Plt Count 175 X10^3/uL (150.0-450.0) 12/25/18 03:42 MPV 8.4 fL (7.4-11.0) 12/25/18 03:42 Neut % (Auto) 71.0 % (42.0-75.0) 12/25/18 03:42 Lymph % (Auto) 19.6 % (21.0-51.0) L 12/25/18 03:42 Piatt % (Auto) 5.8 % (0.0-13.0) 12/25/18 03:42 Eos % (Auto) 2.8 % (0.9-2.9) 12/25/18 03:42 Baso % (Auto) 0.8 % (0.2-1.0) 12/25/18 03:42 Neut # (Auto) 4.2 x10^3/uL (2.2-4.8) 12/25/18 03:42 Lymph # (Auto) 1.2 X10^3/uL (1.3-2.9) L 12/25/18 03:42 Piatt # (Auto) 0.3 x10^3/uL (0.3-0.8) 12/25/18 03:42 Eos # (Auto) 0.2 x10^3/uL (0.0-0.2) 12/25/18 03:42 Baso # (Auto) 0.0 X10^3/uL (0.0-0.1) 12/25/18 03:42 Absolute Nucleated RBC 0.0 /100WBC 12/25/18 03:42 PT 12.7 SECONDS (11.8-14.3) 12/24/18 22:17 INR Target Range - 12/24/18 22:17 INR 0.99 (0.8-1.3) 12/24/18 22:17 APTT 22.6 SECONDS (22.9-36.5) L 12/24/18 22:17 PTT Comment - 12/24/18 22:17 Fibrinogen 487 mg/dL (239-489) 12/25/18 03:42 Sodium 139 mmol/L (136-145) 12/25/18 03:42 Corrected Sodium 140 mmol/L (136-145) 12/25/18 03:42 Potassium 3.7 mmol/L (3.5-5.1) 12/25/18 03:42 Chloride 106 mmol/L (98-107) 12/25/18 03:42 Carbon Dioxide 26.0 mmol/L (21-32) 12/25/18 03:42 BUN 17 mg/dL (7-18) 12/25/18 03:42 Creatinine 1.15 mg/dL (0.55-1.02) H 12/25/18 03:42 Est GFR (MDRD) Af Amer > 60 (>60) 12/25/18 03:42 Est GFR (MDRD) Non-Af 50 (>60) L 12/25/18 03:42 Glucose 141 mg/dL (65-99) H 12/25/18 03:42 POC Glucose (mg/dL) 122 mg/dL (65-99) H 12/25/18 05:26 Calcium 8.4 mg/dL (8.5-10.1) L 12/25/18 03:42 Corrected Calcium 9.8 mg/dL (8.5-10.1) 12/25/18 03:42 Magnesium 1.7 mg/dL (1.7-2.9) 12/24/18 22:17 Total Bilirubin 0.30 mg/dL (0.2-1.0) 12/25/18 03:42 AST 22 Units/L (15-37) 12/25/18 03:42 ALT 14 Units/L (12-78) 12/25/18 03:42 Alkaline Phosphatase 74 Units/L (46-116) 12/25/18 03:42 Creatine Kinase 172 Units/L (26-192) 12/24/18 22:17 CK-MB (CK-2) 1.7 ng/mL (0-4.0) 12/24/18 22:17 CK/CKMB % Calc 1.0 % (<4) 12/24/18 22:17 Troponin I 0.03 ng/mL (0-1.5) 12/24/18 22:17 Total Protein 6.7 g/dL (6.4-8.2) 12/25/18 03:42 Albumin 2.3 g/dL (3.4-5.0) L 12/25/18 03:42 Globulin 4.4 g/dL (2.5-4.5) 12/25/18 03:42 Albumin/Globulin Ratio 0.5 Ratio (1.1-2.1) L 12/25/18 03:42 Triglycerides 118 mg/dL (0-150) 12/25/18 03:42 Cholesterol 180 mg/dL (0-200) 12/25/18 03:42 LDL Cholesterol, Calc 110 mg/dL (0-100) H 12/25/18 03:42 HDL Cholesterol 46 mg/dL (40-60) 12/25/18 03:42 Cholesterol/HDL Ratio 3.9 (0.0-5.0) 12/25/18 03:42 Review of Systems Constitutional: Weakness; denies Fever and Sweats Eyes: No Symptoms Reported ENT: No Symptoms Reported Respiratory: denies Cough, Shortness of Breath and Pleuritic Pain Cardiovascular: denies Chest Pain, Palpitations and Edema Gastrointestinal: denies Nausea, Abdominal Pain and Diarrhea Genitourinary: No Symptoms Reported Musculoskeletal: denies No Symptoms Reported Skin: No Symptoms Reported Neurological: Weakness, Numbness and Change in Speech Physical Exam Vital Signs: Temperature 97.4 F Pulse Rate [Apical] 50 Pulse Rate 49 Respiratory Rate 18 Blood Pressure [Right Arm] 140/67 Blood Pressure [Left Arm] 119/64 Blood Pressure 151/65 O2 Sat by Pulse Oximetry 96 Oriented: Normal Eyes: Normal Ear: Normal Respiratory: Clear Throughout Cardiovascular: Normal Auscultation: Bowel Sounds: Normal Palpation: Normal Tenderness: Normal Skin: Normal Musculoskeletal: Left (left arm weaker than right, strength 3/5. Upper > Lower, normal sensation ); negative Sensory Deficit Psychiatric: Normal Mood Description: Calm Affect: Normal Speech Pattern: Slurred Assessment/Plan (1) Acute thalamic infarction: Status: Acute Plan: - stable on CT, no conversion. Unclear if patient's deficits have progressed or remained the same since recent discharge. MRA/CTA neck showed high grade left ICA stenosis, needs further intervention. Due to recent imaging and stable repeat CT, will hold off on repeating MRI for now. Continue asa and statin PT/OT. (2) Left hemiparesis: Status: Acute Plan: Recent right thalamic stroke, PT/OT (3) Accelerated hypertension: Status: Acute Plan: resolved, continue lisinopril and Toprol (4) CKD (chronic kidney disease) stage 3, GFR 30-59 ml/min: Status: Acute Plan: stable, monitor Cr. (5) Type 2 diabetes mellitus: Qualifiers: Diabetes mellitus complication status: with kidney complications Status: Acute (6) Stroke determined by clinical assessment: Status: Acute (7) Hypothyroidism: Status: Acute
[2018-12-25 16:02] LABS: BILIRUBIN,URINE NEGATIVE (NEGATIVE); BLOOD/HEMOGLOBIN,URINE 1+ (NEGATIVE); GLUCOSE, URINE NEGATIVE (NEGATIVE); KETONES,URINE NEGATIVE (NEGATIVE); LEUKOCYTE ESTERASE ,URINE NEGATIVE (NEGATIVE); NITRITES,URINE NEGATIVE (NEGATIVE); PROTEIN,URINE 4+ (NEGATIVE); UROBILINOGEN,URINE NORMAL (NORMAL)
[2018-12-25 16:06] LABS: APPEARANCE,URINE SLIGHTLY HAZY (CLEAR); COLOR,URINE YELLOW (YELLOW); SQUAMOUS EPITHELIAL CELL,UR FEW /HPF (NEGATIVE)
[2018-12-25 16:07] LABS: AMORPHOUS SEDIMENT,UR 1+ /HPF (NEGATIVE); BACTERIA,URINE 1+ /HPF (NEGATIVE); FINE GRANULAR CASTS,URINE RARE /LPF (NEGATIVE); MUCUS,URINE FEW /HPF (NEGATIVE)
[2018-12-25] MEDS: PRAVACHOL PO SCH (20:40)
[2018-12-26] MEDS: SYNTHROID 150 mcg TAB PO SCH (06:07)
[2018-12-26] MEDS ORDERED: GLUCOPHAGE ONE (08:11)
[2018-12-26] MEDS: GLUCOPHAGE PO SCH ×2 (08:19→21:16)
[2018-12-26] MEDS: TOPROL XL PO SCH (08:19)
[2018-12-26] MEDS: ASPIRIN 81 MG CHEWTAB PO SCH (08:20)
[2018-12-26] MEDS: NEURONTIN CAP 300 MG PO SCH ×2 (08:20→21:17)
[2018-12-26] MEDS ORDERED: NORVASC TAB 5 MG PO SCH (10:00)
[2018-12-26] MEDS: ZESTRIL TAB 40 MG PO SCH (11:04)
[2018-12-26] MEDS: ACTOS PO SCH (11:04)
[2018-12-26] MEDS: LOVENOX INJ 40 MG SYR SC SCH (12:02)
[2018-12-26] MEDS: PRAVACHOL PO SCH (21:17)
[2018-12-27] MEDS: SYNTHROID 150 mcg TAB PO SCH (06:15)
[2018-12-27] MEDS ORDERED: NORVASC TAB 5 MG PO SCH (09:00)
[2018-12-27] MEDS: LOVENOX INJ 40 MG SYR SC SCH (09:33)
[2018-12-27] MEDS: TOPROL XL PO SCH (09:34)
[2018-12-27] MEDS: NEURONTIN CAP 300 MG PO SCH (09:36)
[2018-12-27] MEDS: ASPIRIN 81 MG CHEWTAB PO SCH (09:40)
[2018-12-27] MEDS: ACTOS PO SCH (09:41)
[2018-12-27] MEDS: GLUCOPHAGE PO SCH (09:41)
[2018-12-27] MEDS: ZESTRIL TAB 40 MG PO SCH (09:42)
[2018-12-27] MEDS ORDERED: NYSTATIN POWDER TOP SCH (11:00)
[2018-12-27] MEDS ORDERED: DULCOLAX SUPPOSITORY 10 MG RECTAL ONE (14:21)
[2018-12-27] MEDS ORDERED: DULCOLAX SUPPOSITORY 10 MG ONE (14:25)
[2018-12-27 16:10] VITALS: BP 140/75
== END 2018-12-27 17:05 ==
LOC: MED/SURG 20:42 → ER 20:42 → MED/SURG 12-25 04:28
PROVIDERS: ADMIT Internal Medicine; ATTEND Obstetrics & Gynecology Obstetrics
DX: R79.1 Abnormal coagulation profile; E03.8 Other specified hypothyroidism; R26.89 Other abnormalities of gait and mobility; I16.0 Hypertensive urgency; N18.3 Chronic kidney disease, stage 3 (moderate); E11.65 Type 2 diabetes mellitus with hyperglycemia; R00.1 Bradycardia, unspecified; I63.89 Other cerebral infarction; G81.94 Hemiplegia, unspecified affecting left nondominant side; I10 Essential (primary) hypertension
CPT/HCPCS: 36415; 70450; 71010; 71045; 80053; 80061; 81001; 82550; 82553; 83735; 84484; 85025; 85384; 85610; 85730; 87086; 93005; 96365; 96372; 97162; 99284; A4222; G0378; J1650

== ENCOUNTER 2021-08-28 08:13 | Inpatient (IN) ==
[2021-08-28] MEDS ORDERED: NS 500 ML IV 500 ML IV ONE ×5 (08:17→09:25)
[2021-08-28] MEDS ORDERED: ZOFRAN INJ 4 MG VIAL IVP ONE (08:30)
--- NOTE | 2021-08-28 08:30 | DR.GENAD ---
HPI Time Seen Time Seen by Provider: 08/28/21 08:22 Complaint/Symptoms Chief Complaint Doctors Comments: 71 yo female brought in via EMS for vomiting. Was here 10 days ago, diagnosed with a UTI. Hasn't been feeling well since. + persistent nausea with frequent episodes of diarrhea. Denies abdominal pain. No problems with bowels or bladder. Denies fever. Having generalized weakness. Hasn't been eating well. 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 Social History Do you use any recreational Drugs:: No ROS Review of Systems Constitutional: Weakness and Fatigue Eyes: No Symptoms Reported ENTM: No Symptoms Reported Respiratoy: No Symptoms Reported Cardiovascular: No Symptoms Reported Gastrointestinal/Abdominal: Nausea and Vomiting Genitourinary: No Symptoms Reported Neurological: Weakness Musculoskeletal: No Symptoms Reported Integumentary: No Symptoms Reported Hematologic/Lymphatic: No Symptoms Reported Psychiatric: No Symptoms Reported All Other Systems: Reviewed and Negative PE Vital Signs Vitals: Temperature 98.1 F Pulse Rate 80 Respiratory Rate 17 Blood Pressure [Left Arm] 164/72 Blood Pressure 122/66 O2 Sat by Pulse Oximetry 100 General Limitations: No Limitations General Appearance: Alert, In No Apparent Distress and Other (+ dry heaving on arrival) Head Head Exam: Normal Inspection Eyes Eye exam: Normal Appearance ENT ENT Exam: Mucous Membranes Moist Neck Neck Exam: Normal Inspection and Full ROM Chest Chest Inspection: Normal Inspection Respiratory Respiratory Exam: Normal Lung Sounds Bilat; negative Accessory Muscle Use and Respiratory Distress Respiratory Exam: Bilateral: Clear to Auscultation Cardiovascular Cardiovascular Exam: Regular Rate, Normal Rhythm and Normal Heart Sounds Abdominal Exam Abdominal Exam: Normal Bowel Sounds and Soft; negative Tenderness Extremities Extremities Exam: Normal Inspection Back Back Exam: Normal Inspection Neurologic Neurological Exam: Alert, Oriented X3 and CN II-XII Intact; negative Motor Senso ry Deficit Skin Skin Exam: Warm and Dry MDM Differential Diagnosis Differential Diagnosis: SBO, gastritis, dehydration, electrolyte abnormalities. COURSE Treatment Treatment: 71 y/o female with persistent nausea, vomiting > 1 week. W/u initiated. Given IV fluids, IV zofran. 911 - Labs show kidney failure, Cr 6, probably from volume depletion, and significant anemia, Hgb 6.2. Potassium elevated, not hemolysed. Given additional IV fluids, IV biarb, calcium, D50 and regular insulin. Will discuss admmission with her attending, Dr Roa. Will transfuse 3 U PRBCs, send stool for Hemoccult testing. ROR Labs Reviewed Laboratory Results Reviewed?: Yes Result Diagrams: 08/28/21 08:28 08/28/21 08: Laboratory: WBC 12.6 X10^3/uL (3.6-10.0) H 08/28/21 08: RBC 1.89 X10^6/uL (3.5-5.4) L 08/28/21 08: Hgb 6.2 g/dL (12.0-16.0) L* 08/28/21 08: Hct 18.4 % (36.0-47.0) L* 08/28/21 08: MCV 97.5 fL (80.0-100.0) 08/28/21 08: MCH 32.8 pg (27.0-34.0) 08/28/21 08: MCHC 33.7 g/dL (33.0-35.0) 08/28/21 08: RDW 13.5 % (11.6-16.5) 08/28/21 08: Plt Count 324 X10^3/uL (150.0-450.0) 08/28/21 08: MPV 8.0 fL (7.4-11.0) 08/28/21 08: Neut % (Auto) 86.3 % (42.0-75.0) H 08/28/21 08: Lymph % (Auto) 10.6 % (21.0-51.0) L 08/28/21 08: Town[place] % (Auto) 2.7 % (0.0-13.0) 08/28/21 08: Eos % (Auto) 0.0 % (0.9-2.9) L 08/28/21 08: Baso % (Auto) 0.4 % (0.2-1.0) 08/28/21 08: Neut # (Auto) 10.9 x10^3/uL (2.2-4.8) H 08/28/21 08:28 Lymph # (Auto) 1.3 X10^3/uL (1.3-2.9) 08/28/21 08:28 [place] # (Auto) 0.3 x10^3/uL (0.3-0.8) 08/28/21 08:28 Eos # (Auto) 0.0 x10^3/uL (0.0-0.2) 08/28/21 08:28 Baso # (Auto) 0.1 X10^3/uL (0.0-0.1) 08/28/21 08:28 Absolute Nucleated RBC 0.0 /100WBC 08/28/21 08:28 Sodium 131 mmol/L (136-145) L 08/28/21 08:28 Corrected Sodium TNP 08/28/21 08:28 Potassium 6.1 mmol/L (3.5-5.1) H* 08/28/21 08:28 Chloride 103 mmol/L (98-107) 08/28/21 08:28 Carbon Dioxide 16.1 mmol/L (21-32) L 08/28/21 08:28 BUN 81 mg/dL (7-18) H 08/28/21 08:28 Creatinine 6.02 mg/dL (0.55-1.02) H 08/28/21 08:28 Est GFR (MDRD) Af Amer 9 (>60) L 08/28/21 08:28 Est GFR (MDRD) Non-Af 7 (>60) L 08/28/21 08:28 Glucose 104 mg/dL (65-99) H 08/28/21 08:28 Calcium 8.2 mg/dL (8.5-10.1) L 08/28/21 08:28 Corrected Calcium 9.2 mg/dL (8.5-10.1) 08/28/21 08:28 Total Bilirubin 0.10 mg/dL (0.2-1.0) L 08/28/21 08:28 AST 25 Units/L (15-37) 08/28/21 08:28 ALT 19 Units/L (12-78) 08/28/21 08:28 Alkaline Phosphatase 106 Units/L (46-116) 08/28/21 08:28 Creatine Kinase 139 Units/L (26-192) 08/28/21 08:28 CK-MB (CK-2) 3.4 ng/mL (0-4.0) 08/28/21 08:28 CK/CKMB % Calc 2.5 % (<4) 08/28/21 08:28 Troponin I High Sens 50.5 ng/L (4.0-60.0) 08/28/21 08:28 Total Protein 7.0 g/dL (6.4-8.2) 08/28/21 08:28 Albumin 2.7 g/dL (3.4-5.0) L 08/28/21 08:28 Globulin 4.3 g/dL (2.5-4.5) 08/28/21 08:28 Albumin/Globulin Ratio 0.6 Ratio (1.1-2.1) L 08/28/21 08:28 Lipase 161 Units/L (73-393) 08/28/21 08:28 Other Results Comments: Marked anemia, and electrolyte abnormalities. Opioid Opioid Risk Tool Age (Ganesh box if 16-45): No History of Preadolescent Sexual Abuse: No Total: 0 Total Score Risk Category: Low Risk Copyright: Isaiah MCCULLOUGH predicting aberrant behaviors Diagnosis Discharge Problem: Acute nontraumatic kidney injury, Volume depletion Anemia Qualifiers: Anemia type: unspecified type Qualified Code(s): D64.9 - Anemia, unspecified
[2021-08-28] MEDS ORDERED: ZOFRAN INJ 4 MG VIAL ONE (08:35)
[2021-08-28 08:39] LABS: BASOPHILS # (AUTO) 0.1 X10^3/uL (0.0-0.1); LYMPHOCYTES # (AUTO) 1.3 X10^3/uL (1.3-2.9); WHITE BLOOD COUNT 12.6 X10^3/uL (3.6-10.0)
[2021-08-28 08:42] LABS: BASOPHILS % (AUTO) 0.4 % (0.2-1.0); LYMPHOCYTES % (AUTO) 10.6 % (21.0-51.0); MEAN CORPUSCULAR HEMOGLOBIN 32.8 pg (27.0-34.0); MEAN CORPUSCULAR HGB CONC 33.7 g/dL (33.0-35.0); MEAN CORPUSCULAR VOLUME 97.5 fL (80.0-100.0); MONOCYTES # (AUTO) 0.3 x10^3/uL (0.3-0.8); MONOCYTES % (AUTO) 2.7 % (0.0-13.0); NEUTROPHILS # (AUTO) 10.9 x10^3/uL (2.2-4.8); NEUTROPHILS % (AUTO) 86.3 % (42.0-75.0); RED BLOOD COUNT 1.89 X10^6/uL (3.5-5.4); RED CELL DISTRIBUTION WIDTH 13.5 % (11.6-16.5)
[2021-08-28 08:50] LABS: HEMOGLOBIN 6.2 g/dL (12.0-16.0)
[2021-08-28 08:51] LABS: HEMATOCRIT 18.4 % (36.0-47.0)
[2021-08-28 08:56] LABS: ALANINE AMINOTRANSFERASE 19 Units/L (12-78); ALBUMIN 2.7 g/dL (3.4-5.0); ALKALINE PHOSPHATASE 106 Units/L (46-116); ASPARTATE AMINO TRANSFERASE 25 Units/L (15-37); BLOOD UREA NITROGEN 81 mg/dL (7-18); CALCIUM 8.2 mg/dL (8.5-10.1); CARBON DIOXIDE 16.1 mmol/L (21-32); CHLORIDE 103 mmol/L (98-107); CKMB % 2.5 % (<4); COR CA(FOR HYPOALB) 9.2 mg/dL (8.5-10.1); CREATINE KINASE 139 Units/L (26-192); CREATINE KINASE MB 3.4 ng/mL (0-4.0); CREATININE 6.02 mg/dL (0.55-1.02); LIPASE 161 Units/L (73-393); SODIUM 131 mmol/L (136-145); eGFR NON BLACK RACES 7 (>60)
[2021-08-28] MEDS ORDERED: SODIUM BICARBONATE 8.4% INJ ADULT IVP ONE (09:17)
[2021-08-28] MEDS ORDERED: D50W ABBOJECT SYR IV ONE (09:17)
[2021-08-28] MEDS ORDERED: CALCIUM CHLORIDE INJ IVP ONE (09:18)
[2021-08-28] MEDS ORDERED: NovoLIN R (or HumuLIN R) IV ONE (09:19)
[2021-08-28] MEDS ORDERED: SODIUM BICARBONATE 8.4% INJ ADULT ONE (09:25)
[2021-08-28] MEDS ORDERED: D50W ABBOJECT SYR ONE (09:25)
[2021-08-28] MEDS ORDERED: NovoLIN R (or HumuLIN R) ONE ×2 (09:26→09:30)
[2021-08-28] MEDS ORDERED: NS 1,000 ML IV 1,000 ML IV SCH ×2 (11:00→13:30)
[2021-08-28 13:17] LABS: BILIRUBIN,URINE NEGATIVE (NEGATIVE); BLOOD/HEMOGLOBIN,URINE 3+ (NEGATIVE); GLUCOSE, URINE NEGATIVE (NEGATIVE); KETONES,URINE NEGATIVE (NEGATIVE); LEUKOCYTE ESTERASE ,URINE 3+ (NEGATIVE); NITRITES,URINE NEGATIVE (NEGATIVE); PROTEIN,URINE 3+ (NEGATIVE); UROBILINOGEN,URINE NORMAL (NORMAL)
[2021-08-28 13:24] LABS: APPEARANCE,URINE SLIGHTLY HAZY (CLEAR); COLOR,URINE YELLOW (YELLOW)
[2021-08-28 13:25] LABS: BACTERIA,URINE TRACE /HPF (NEGATIVE); SQUAMOUS EPITHELIAL CELL,UR RARE /HPF (NEGATIVE)
[2021-08-28 13:26] LABS: HYALINE CASTS, URINE RARE /LPF (NEGATIVE)
--- NOTE | 2021-08-28 13:32 | RAD ---
HISTORYWeakness vomitingSTUDYAP [id number]/22/2019FINDINGSStable normal heart size with clear lungs and pleural spaces. There is no mediastinal or hilar abnormality.IMPRESSIONNo acute chest findings.Electronically signed by: SILVERIO MERINO (Aug 28, 2021 13:30:46)
[2021-08-28] MEDS: NS 1,000 ML IV 1,000 ML IV SCH (13:34)
[2021-08-28] MEDS: NS 250 ML IV 250 ML IV PRN ×2 (13:43→17:55)
[2021-08-28] MEDS: ZOFRAN TAB 4 MG SL PRN (19:42)
[2021-08-28] MEDS: NORCO 5/325 MG TAB PO PRN (20:04)
[2021-08-28] MEDS: SNACK - Diabetic Appropriate PO SCH (20:18)
[2021-08-29] MEDS: NS 1,000 ML IV 1,000 ML IV SCH ×3 (00:56→17:45)
[2021-08-29 01:18] LABS: HEMATOCRIT 31.1 % (36.0-47.0)
[2021-08-29 01:22] LABS: BLOOD UREA NITROGEN 69 mg/dL (7-18); CARBON DIOXIDE 17.6 mmol/L (21-32); CHLORIDE 105 mmol/L (98-107); CREATININE 4.83 mg/dL (0.55-1.02); SODIUM 132 mmol/L (136-145); eGFR NON BLACK RACES 9 (>60)
[2021-08-29 01:25] LABS: HEMOGLOBIN 10.6 g/dL (12.0-16.0)
[2021-08-29 05:07] LABS: BASOPHILS # (AUTO) 0.1 X10^3/uL (0.0-0.1); BASOPHILS % (AUTO) 1.4 % (0.2-1.0); EOSINOPHILS % (AUTO) 0.3 % (0.9-2.9); HEMATOCRIT 31.1 % (36.0-47.0); HEMOGLOBIN 10.7 g/dL (12.0-16.0); LYMPHOCYTES # (AUTO) 0.9 X10^3/uL (1.3-2.9); LYMPHOCYTES % (AUTO) 8.3 % (21.0-51.0); MEAN CORPUSCULAR HEMOGLOBIN 31.3 pg (27.0-34.0); MEAN CORPUSCULAR HGB CONC 34.3 g/dL (33.0-35.0); MEAN CORPUSCULAR VOLUME 91.1 fL (80.0-100.0); MEAN PLATELET VOLUME 7.4 fL (7.4-11.0); MONOCYTES # (AUTO) 0.4 x10^3/uL (0.3-0.8); MONOCYTES % (AUTO) 3.7 % (0.0-13.0); NEUTROPHILS # (AUTO) 9.1 x10^3/uL (2.2-4.8); NEUTROPHILS % (AUTO) 86.3 % (42.0-75.0); RED BLOOD COUNT 3.41 X10^6/uL (3.5-5.4); WHITE BLOOD COUNT 10.5 X10^3/uL (3.6-10.0)
[2021-08-29 05:31] LABS: ALANINE AMINOTRANSFERASE 20 Units/L (12-78); ALBUMIN 2.4 g/dL (3.4-5.0); ALKALINE PHOSPHATASE 98 Units/L (46-116); ASPARTATE AMINO TRANSFERASE 30 Units/L (15-37); BLOOD UREA NITROGEN 69 mg/dL (7-18); CHLORIDE 107 mmol/L (98-107); COR CA(FOR HYPOALB) 9.3 mg/dL (8.5-10.1); SODIUM 132 mmol/L (136-145); TOTAL PROTEIN 6.4 g/dL (6.4-8.2); eGFR NON BLACK RACES 10 (>60)
[2021-08-29] MEDS ORDERED: NS 1,000 ML IV 1,000 ML IV ONE (09:02)
[2021-08-29] MEDS: ZOSYN VIAL 2.25 GRAMS 2.25 G in NS 100 ML IV 100 ML IV SCH ×3 (09:40→21:43)
--- NOTE | 2021-08-29 12:25 | RAD ---
HISTORYVomiting 1 monthSTUDYAbdomen series with AP chest three viewsCOMPARISONNoneFINDINGSAP chest: No acute findings.Abdomen series: Frontal views of abdomen were obtained without designation of supine/upright patient position.There is mild gaseous distention of small and large bowel in a nonobstructing pattern. No mass formation or organ enlargement noted.IMPRESSION1. Intestinal gas pattern consistent with mild nonobstructing ileus.2. Pneumoperitoneum cannot be confidently excluded without designated upright chest or abdominal imaging.Electronically signed by: SILVERIO MERINO (Aug 29, 2021 12:23:44)
[2021-08-29] MEDS ORDERED: GOLYTELY or GAVILYTE or Equivalent PO SCH (14:00)
[2021-08-29] MEDS ORDERED: CITROMA PO NR (14:38)
[2021-08-29] MEDS: ZOFRAN TAB 4 MG SL PRN (17:50)
[2021-08-29] MEDS ORDERED: GLUTOSE 15 GEL ORAL PO PRN (21:30)
[2021-08-29] MEDS: ZOFRAN INJ 4 MG VIAL IVP PRN (22:19)
[2021-08-30] MEDS: SNACK - Diabetic Appropriate PO SCH ×2 (00:22→21:05)
[2021-08-30] MEDS: NS 1,000 ML IV 1,000 ML IV SCH ×3 (04:06→17:59)
[2021-08-30] MEDS: ZOSYN VIAL 2.25 GRAMS 2.25 G in NS 100 ML IV 100 ML IV SCH ×3 (05:35→21:06)
[2021-08-30 06:04] LABS: BASOPHILS % (AUTO) 0.5 % (0.2-1.0); EOSINOPHILS # (AUTO) 0.1 x10^3/uL (0.0-0.2); EOSINOPHILS % (AUTO) 1.5 % (0.9-2.9); HEMATOCRIT 31.7 % (36.0-47.0); HEMOGLOBIN 10.9 g/dL (12.0-16.0); LYMPHOCYTES % (AUTO) 11.1 % (21.0-51.0); MEAN CORPUSCULAR HEMOGLOBIN 31.5 pg (27.0-34.0); MEAN CORPUSCULAR HGB CONC 34.3 g/dL (33.0-35.0); MEAN CORPUSCULAR VOLUME 91.8 fL (80.0-100.0); MEAN PLATELET VOLUME 7.1 fL (7.4-11.0); MONOCYTES # (AUTO) 0.4 x10^3/uL (0.3-0.8); MONOCYTES % (AUTO) 4.4 % (0.0-13.0); NEUTROPHILS # (AUTO) 7.6 x10^3/uL (2.2-4.8); NEUTROPHILS % (AUTO) 82.5 % (42.0-75.0); RED BLOOD COUNT 3.45 X10^6/uL (3.5-5.4); RED CELL DISTRIBUTION WIDTH 15.1 % (11.6-16.5); WHITE BLOOD COUNT 9.2 X10^3/uL (3.6-10.0)
[2021-08-30 06:20] LABS: ALANINE AMINOTRANSFERASE 21 Units/L (12-78); ALBUMIN 2.4 g/dL (3.4-5.0); ALKALINE PHOSPHATASE 99 Units/L (46-116); ASPARTATE AMINO TRANSFERASE 28 Units/L (15-37); BLOOD UREA NITROGEN 56 mg/dL (7-18); CALCIUM 7.9 mg/dL (8.5-10.1); CARBON DIOXIDE 17.4 mmol/L (21-32); CHLORIDE 108 mmol/L (98-107); COR CA(FOR HYPOALB) 9.2 mg/dL (8.5-10.1); CREATININE 3.79 mg/dL (0.55-1.02); SODIUM 133 mmol/L (136-145); TOTAL PROTEIN 6.3 g/dL (6.4-8.2); eGFR NON BLACK RACES 13 (>60)
[2021-08-30] MEDS ORDERED: NS 1,000 ML IV 1,000 ML IV ONE (09:20)
[2021-08-30] MEDS: PROTONIX TAB 40 MG PO SCH ×2 (10:46→21:06)
[2021-08-30] MEDS: CYTOTEC PO SCH ×4 (13:00→21:05)
[2021-08-30] MEDS: NORCO 5/325 MG TAB PO PRN (14:44)
[2021-08-30] MEDS: ZOFRAN INJ 4 MG VIAL IVP PRN (18:00)
[2021-08-31] MEDS: NORCO 5/325 MG TAB PO PRN (04:13)
[2021-08-31] MEDS: NS 1,000 ML IV 1,000 ML IV SCH ×4 (04:46→21:14)
[2021-08-31 05:22] LABS: BASOPHILS % (AUTO) 0.6 % (0.2-1.0); EOSINOPHILS # (AUTO) 0.3 x10^3/uL (0.0-0.2); EOSINOPHILS % (AUTO) 3.9 % (0.9-2.9); HEMATOCRIT 31.4 % (36.0-47.0); HEMOGLOBIN 10.8 g/dL (12.0-16.0); LYMPHOCYTES # (AUTO) 1.1 X10^3/uL (1.3-2.9); LYMPHOCYTES % (AUTO) 15.4 % (21.0-51.0); MEAN CORPUSCULAR HEMOGLOBIN 31.5 pg (27.0-34.0); MEAN CORPUSCULAR HGB CONC 34.3 g/dL (33.0-35.0); MEAN CORPUSCULAR VOLUME 91.9 fL (80.0-100.0); MEAN PLATELET VOLUME 7.3 fL (7.4-11.0); MONOCYTES # (AUTO) 0.3 x10^3/uL (0.3-0.8); MONOCYTES % (AUTO) 3.8 % (0.0-13.0); NEUTROPHILS # (AUTO) 5.7 x10^3/uL (2.2-4.8); NEUTROPHILS % (AUTO) 76.3 % (42.0-75.0); RED BLOOD COUNT 3.42 X10^6/uL (3.5-5.4); RED CELL DISTRIBUTION WIDTH 14.8 % (11.6-16.5); WHITE BLOOD COUNT 7.5 X10^3/uL (3.6-10.0)
[2021-08-31 05:26] LABS: ALANINE AMINOTRANSFERASE 19 Units/L (12-78); ALBUMIN 2.3 g/dL (3.4-5.0); ALKALINE PHOSPHATASE 97 Units/L (46-116); ASPARTATE AMINO TRANSFERASE 28 Units/L (15-37); BLOOD UREA NITROGEN 41 mg/dL (7-18); CALCIUM 7.9 mg/dL (8.5-10.1); CHLORIDE 110 mmol/L (98-107); COR CA(FOR HYPOALB) 9.3 mg/dL (8.5-10.1); CREATININE 3.04 mg/dL (0.55-1.02); SODIUM 135 mmol/L (136-145); TOTAL PROTEIN 6.3 g/dL (6.4-8.2); eGFR NON BLACK RACES 16 (>60)
[2021-08-31] MEDS: ZOSYN VIAL 2.25 GRAMS 2.25 G in NS 100 ML IV 100 ML IV SCH ×3 (06:03→21:15)
[2021-08-31] MEDS: ZOFRAN INJ 4 MG VIAL IVP PRN (07:38)
[2021-08-31] MEDS ORDERED: CATAPRES TAB 0.1 MG PO ONE ×2 (08:30→20:30)
[2021-08-31] MEDS ORDERED: CATAPRES TAB 0.1 MG ONE (08:53)
[2021-08-31] MEDS: CYTOTEC PO SCH ×4 (08:59→21:14)
[2021-08-31] MEDS: PROTONIX TAB 40 MG PO SCH ×2 (08:59→21:15)
[2021-08-31] MEDS ORDERED: NS 1,000 ML IV 1,000 ML IV ONE (09:38)
[2021-08-31] MEDS ORDERED: ACTOS PO SCH (11:00)
[2021-08-31] MEDS: SYNTHROID 150 mcg TAB PO SCH (11:07)
[2021-08-31] MEDS: NORVASC TAB 10 MG PO SCH (11:07)
[2021-08-31] MEDS: ZESTRIL TAB 40 MG PO SCH (11:08)
[2021-08-31] MEDS: SNACK - Diabetic Appropriate PO SCH (20:00)
[2021-09-01 06:05] LABS: BASOPHILS # (AUTO) 0.1 X10^3/uL (0.0-0.1); BASOPHILS % (AUTO) 0.7 % (0.2-1.0); EOSINOPHILS # (AUTO) 0.4 x10^3/uL (0.0-0.2); EOSINOPHILS % (AUTO) 4.8 % (0.9-2.9); HEMATOCRIT 28.1 % (36.0-47.0); HEMOGLOBIN 9.6 g/dL (12.0-16.0); LYMPHOCYTES # (AUTO) 1.2 X10^3/uL (1.3-2.9); LYMPHOCYTES % (AUTO) 15.5 % (21.0-51.0); MEAN CORPUSCULAR HEMOGLOBIN 31.6 pg (27.0-34.0); MEAN CORPUSCULAR HGB CONC 34.2 g/dL (33.0-35.0); MEAN CORPUSCULAR VOLUME 92.6 fL (80.0-100.0); MEAN PLATELET VOLUME 6.8 fL (7.4-11.0); MONOCYTES # (AUTO) 0.3 x10^3/uL (0.3-0.8); MONOCYTES % (AUTO) 4.2 % (0.0-13.0); NEUTROPHILS # (AUTO) 5.8 x10^3/uL (2.2-4.8); NEUTROPHILS % (AUTO) 74.8 % (42.0-75.0); RED BLOOD COUNT 3.03 X10^6/uL (3.5-5.4); RED CELL DISTRIBUTION WIDTH 14.5 % (11.6-16.5); WHITE BLOOD COUNT 7.7 X10^3/uL (3.6-10.0)
[2021-09-01] MEDS: ZOSYN VIAL 2.25 GRAMS 2.25 G in NS 100 ML IV 100 ML IV SCH ×3 (06:07→21:53)
[2021-09-01 06:15] LABS: ALANINE AMINOTRANSFERASE 17 Units/L (12-78); ALKALINE PHOSPHATASE 84 Units/L (46-116); ASPARTATE AMINO TRANSFERASE 21 Units/L (15-37); BLOOD UREA NITROGEN 28 mg/dL (7-18); CALCIUM 7.7 mg/dL (8.5-10.1); CARBON DIOXIDE 17.5 mmol/L (21-32); CHLORIDE 112 mmol/L (98-107); COR CA(FOR HYPOALB) 9.3 mg/dL (8.5-10.1); CREATININE 2.63 mg/dL (0.55-1.02); SODIUM 136 mmol/L (136-145); TOTAL PROTEIN 5.5 g/dL (6.4-8.2); eGFR NON BLACK RACES 19 (>60)
[2021-09-01] MEDS: CYTOTEC PO SCH ×4 (08:16→20:47)
[2021-09-01] MEDS: PROTONIX TAB 40 MG PO SCH ×2 (08:16→20:47)
[2021-09-01] MEDS: NORVASC TAB 10 MG PO SCH (08:16)
[2021-09-01] MEDS: ZESTRIL TAB 40 MG PO SCH (08:16)
[2021-09-01] MEDS: SYNTHROID 150 mcg TAB PO SCH (08:16)
[2021-09-01] MEDS: NS 1,000 ML IV 1,000 ML IV SCH ×3 (09:04→22:00)
[2021-09-01] MEDS ORDERED: TOPROL XL PO ONE (10:02)
[2021-09-01] MEDS: TOPROL XL PO SCH (10:08)
[2021-09-01] MEDS: SNACK - Diabetic Appropriate PO SCH (20:30)
[2021-09-02] MEDS: NS 1,000 ML IV 1,000 ML IV SCH ×4 (00:37→17:37)
[2021-09-02] MEDS: ZOSYN VIAL 2.25 GRAMS 2.25 G in NS 100 ML IV 100 ML IV SCH ×3 (05:24→21:51)
[2021-09-02 05:48] LABS: BASOPHILS # (AUTO) 0.1 X10^3/uL (0.0-0.1); BASOPHILS % (AUTO) 0.8 % (0.2-1.0); EOSINOPHILS # (AUTO) 0.4 x10^3/uL (0.0-0.2); EOSINOPHILS % (AUTO) 5.2 % (0.9-2.9); HEMATOCRIT 26.4 % (36.0-47.0); LYMPHOCYTES # (AUTO) 1.3 X10^3/uL (1.3-2.9); LYMPHOCYTES % (AUTO) 18.3 % (21.0-51.0); MEAN CORPUSCULAR HEMOGLOBIN 31.5 pg (27.0-34.0); MEAN CORPUSCULAR HGB CONC 34.1 g/dL (33.0-35.0); MEAN CORPUSCULAR VOLUME 92.5 fL (80.0-100.0); MEAN PLATELET VOLUME 6.9 fL (7.4-11.0); MONOCYTES # (AUTO) 0.3 x10^3/uL (0.3-0.8); NEUTROPHILS # (AUTO) 4.9 x10^3/uL (2.2-4.8); NEUTROPHILS % (AUTO) 70.7 % (42.0-75.0); RED BLOOD COUNT 2.86 X10^6/uL (3.5-5.4); RED CELL DISTRIBUTION WIDTH 14.4 % (11.6-16.5)
[2021-09-02 06:01] LABS: ALANINE AMINOTRANSFERASE 14 Units/L (12-78); ALBUMIN 1.7 g/dL (3.4-5.0); ALKALINE PHOSPHATASE 74 Units/L (46-116); ASPARTATE AMINO TRANSFERASE 18 Units/L (15-37); BLOOD UREA NITROGEN 21 mg/dL (7-18); CALCIUM 7.4 mg/dL (8.5-10.1); CHLORIDE 114 mmol/L (98-107); COR CA(FOR HYPOALB) 9.2 mg/dL (8.5-10.1); CREATININE 2.39 mg/dL (0.55-1.02); SODIUM 138 mmol/L (136-145); TOTAL PROTEIN 4.9 g/dL (6.4-8.2); eGFR NON BLACK RACES 21 (>60)
[2021-09-02] MEDS ORDERED: TOPROL XL PO ONE (09:31)
[2021-09-02] MEDS: PROTONIX TAB 40 MG PO SCH ×2 (09:40→21:52)
[2021-09-02] MEDS: NORVASC TAB 10 MG PO SCH (09:40)
[2021-09-02] MEDS: SYNTHROID 150 mcg TAB PO SCH (09:40)
[2021-09-02] MEDS: CYTOTEC PO SCH ×4 (09:40→21:53)
[2021-09-02] MEDS: ZESTRIL TAB 40 MG PO SCH (09:41)
[2021-09-02] MEDS: TOPROL XL PO SCH (09:41)
[2021-09-02] MEDS: APRESOLINE TAB 25 MG PO SCH ×4 (09:42→21:51)
--- NOTE | 2021-09-02 11:49 | RAD ---
HISTORYENCOPORESISSTUDYACUTE ABDOMEN x-ray SERIES, one view chest and two views abdomenCOMPARISONExam 08/29/2021FINDINGSMild increased colonic air is seen without dilation. No evidence of constipation or fecal impaction. Little small bowel air is seen. No suspicious air-fluid levels are seen. No free intraperitoneal air is seen. Possible COPD changes in lungs. Patient is rotated to the right. Heart is normal in size. No pneumothorax, focal infiltrate, or pleural effusion is seen.IMPRESSIONNo acute abdomen abnormality identified.Electronically signed by: Chad Adams (Sep 02, 2021 10:37:55)
[2021-09-02] MEDS: COLACE CAP 100 MG PO SCH (22:06)
[2021-09-02] MEDS: MIRALAX POWDER (1 DOSE 17 G) PO SCH (22:06)
[2021-09-03 06:07] LABS: BASOPHILS % (AUTO) 0.5 % (0.2-1.0); EOSINOPHILS # (AUTO) 0.4 x10^3/uL (0.0-0.2); EOSINOPHILS % (AUTO) 4.8 % (0.9-2.9); HEMATOCRIT 26.8 % (36.0-47.0); HEMOGLOBIN 9.3 g/dL (12.0-16.0); LYMPHOCYTES # (AUTO) 1.3 X10^3/uL (1.3-2.9); LYMPHOCYTES % (AUTO) 16.6 % (21.0-51.0); MEAN CORPUSCULAR HEMOGLOBIN 31.9 pg (27.0-34.0); MEAN CORPUSCULAR HGB CONC 34.7 g/dL (33.0-35.0); MEAN PLATELET VOLUME 6.9 fL (7.4-11.0); MONOCYTES # (AUTO) 0.4 x10^3/uL (0.3-0.8); MONOCYTES % (AUTO) 4.7 % (0.0-13.0); NEUTROPHILS # (AUTO) 5.6 x10^3/uL (2.2-4.8); NEUTROPHILS % (AUTO) 73.4 % (42.0-75.0); RED BLOOD COUNT 2.91 X10^6/uL (3.5-5.4); RED CELL DISTRIBUTION WIDTH 14.6 % (11.6-16.5); WHITE BLOOD COUNT 7.7 X10^3/uL (3.6-10.0)
[2021-09-03] MEDS: ZOSYN VIAL 2.25 GRAMS 2.25 G in NS 100 ML IV 100 ML IV SCH (06:34)
[2021-09-03 06:43] LABS: ALANINE AMINOTRANSFERASE 13 Units/L (12-78); ALBUMIN 1.5 g/dL (3.4-5.0); ALKALINE PHOSPHATASE 74 Units/L (46-116); ASPARTATE AMINO TRANSFERASE 16 Units/L (15-37); BLOOD UREA NITROGEN 16 mg/dL (7-18); CALCIUM 7.3 mg/dL (8.5-10.1); COR CA(FOR HYPOALB) 9.3 mg/dL (8.5-10.1); CREATININE 2.33 mg/dL (0.55-1.02); SODIUM 139 mmol/L (136-145); TOTAL PROTEIN 4.9 g/dL (6.4-8.2); eGFR NON BLACK RACES 22 (>60)
[2021-09-03 06:54] LABS: CHLORIDE 115 mmol/L (98-107)
[2021-09-03] MEDS: NS 1,000 ML IV 1,000 ML IV SCH ×3 (09:30→16:15)
[2021-09-03] MEDS ORDERED: TOPROL XL PO ONE (09:32)
[2021-09-03] MEDS: ZESTRIL TAB 40 MG PO SCH (09:45)
[2021-09-03] MEDS: PROTONIX TAB 40 MG PO SCH ×2 (09:45→21:17)
[2021-09-03] MEDS: CYTOTEC PO SCH ×4 (09:45→21:18)
[2021-09-03] MEDS: SYNTHROID 150 mcg TAB PO SCH (09:45)
[2021-09-03] MEDS: NORVASC TAB 10 MG PO SCH (09:45)
[2021-09-03] MEDS: TOPROL XL PO SCH (09:45)
[2021-09-03] MEDS: APRESOLINE TAB 25 MG PO SCH ×2 (13:39→21:16)
[2021-09-03] MEDS ORDERED: BUTT CREAM (COMPOUND) ONE (15:16)
[2021-09-03] MEDS ORDERED: BUTT CREAM (COMPOUND) TOP PRN (17:22)
[2021-09-03] MEDS: COLACE CAP 100 MG PO SCH (21:16)
[2021-09-03] MEDS: MIRALAX POWDER (1 DOSE 17 G) PO SCH (21:17)
[2021-09-04] MEDS: NS 1,000 ML IV 1,000 ML IV SCH ×2 (02:00→10:00)
[2021-09-04 05:12] LABS: BASOPHILS # (AUTO) 0.1 X10^3/uL (0.0-0.1); EOSINOPHILS # (AUTO) 0.3 x10^3/uL (0.0-0.2); EOSINOPHILS % (AUTO) 3.9 % (0.9-2.9); HEMATOCRIT 27.4 % (36.0-47.0); HEMOGLOBIN 9.4 g/dL (12.0-16.0); LYMPHOCYTES # (AUTO) 1.3 X10^3/uL (1.3-2.9); LYMPHOCYTES % (AUTO) 15.6 % (21.0-51.0); MEAN CORPUSCULAR HEMOGLOBIN 31.6 pg (27.0-34.0); MEAN CORPUSCULAR HGB CONC 34.3 g/dL (33.0-35.0); MEAN CORPUSCULAR VOLUME 92.1 fL (80.0-100.0); MEAN PLATELET VOLUME 7.2 fL (7.4-11.0); MONOCYTES # (AUTO) 0.4 x10^3/uL (0.3-0.8); MONOCYTES % (AUTO) 4.4 % (0.0-13.0); NEUTROPHILS # (AUTO) 6.2 x10^3/uL (2.2-4.8); NEUTROPHILS % (AUTO) 75.1 % (42.0-75.0); RED BLOOD COUNT 2.98 X10^6/uL (3.5-5.4); RED CELL DISTRIBUTION WIDTH 14.9 % (11.6-16.5); WHITE BLOOD COUNT 8.2 X10^3/uL (3.6-10.0)
[2021-09-04 05:26] LABS: ALANINE AMINOTRANSFERASE 12 Units/L (12-78); ALBUMIN 1.6 g/dL (3.4-5.0); ALKALINE PHOSPHATASE 79 Units/L (46-116); ASPARTATE AMINO TRANSFERASE 19 Units/L (15-37); BLOOD UREA NITROGEN 13 mg/dL (7-18); CALCIUM 7.4 mg/dL (8.5-10.1); CARBON DIOXIDE 15.2 mmol/L (21-32); COR CA(FOR HYPOALB) 9.3 mg/dL (8.5-10.1); CREATININE 2.43 mg/dL (0.55-1.02); SODIUM 138 mmol/L (136-145); TOTAL PROTEIN 5.1 g/dL (6.4-8.2); eGFR NON BLACK RACES 21 (>60)
[2021-09-04 05:30] LABS: CHLORIDE 115 mmol/L (98-107)
[2021-09-04] MEDS: APRESOLINE TAB 25 MG PO SCH ×3 (06:23→21:07)
[2021-09-04] MEDS: ZESTRIL TAB 40 MG PO SCH (09:50)
[2021-09-04] MEDS: TOPROL XL PO SCH (09:50)
[2021-09-04] MEDS: PROTONIX TAB 40 MG PO SCH ×2 (09:50→20:56)
[2021-09-04] MEDS: SYNTHROID 150 mcg TAB PO SCH (09:50)
[2021-09-04] MEDS: CYTOTEC PO SCH ×4 (09:50→20:57)
[2021-09-04] MEDS: NORVASC TAB 10 MG PO SCH (09:50)
[2021-09-04] MEDS ORDERED: TOPROL XL PO ONE (09:54)
[2021-09-04] MEDS: COLACE CAP 100 MG PO SCH (20:55)
[2021-09-04] MEDS: MIRALAX POWDER (1 DOSE 17 G) PO SCH (20:57)
[2021-09-05] MEDS: APRESOLINE TAB 25 MG PO SCH ×3 (05:31→21:09)
[2021-09-05] MEDS ORDERED: TOPROL XL PO ONE (07:19)
[2021-09-05] MEDS: PROTONIX TAB 40 MG PO SCH ×2 (08:57→21:09)
[2021-09-05] MEDS: SYNTHROID 150 mcg TAB PO SCH (08:57)
[2021-09-05] MEDS: CYTOTEC PO SCH ×4 (08:57→21:09)
[2021-09-05] MEDS: TOPROL XL PO SCH ×2 (08:57→13:11)
[2021-09-05] MEDS: NORVASC TAB 10 MG PO SCH (08:58)
[2021-09-05] MEDS: ZESTRIL TAB 40 MG PO SCH ×2 (08:58→13:11)
[2021-09-05] MEDS: ZOFRAN TAB 4 MG SL PRN (12:32)
[2021-09-05] MEDS: COLACE CAP 100 MG PO SCH (21:08)
[2021-09-05] MEDS: MIRALAX POWDER (1 DOSE 17 G) PO SCH (21:09)
[2021-09-06 04:30] LABS: BASOPHILS # (AUTO) 0.1 X10^3/uL (0.0-0.1); BASOPHILS % (AUTO) 0.9 % (0.2-1.0); EOSINOPHILS # (AUTO) 0.2 x10^3/uL (0.0-0.2); HEMATOCRIT 27.4 % (36.0-47.0); HEMOGLOBIN 9.4 g/dL (12.0-16.0); LYMPHOCYTES # (AUTO) 1.2 X10^3/uL (1.3-2.9); LYMPHOCYTES % (AUTO) 14.9 % (21.0-51.0); MEAN CORPUSCULAR HEMOGLOBIN 31.6 pg (27.0-34.0); MEAN CORPUSCULAR HGB CONC 34.2 g/dL (33.0-35.0); MEAN CORPUSCULAR VOLUME 92.5 fL (80.0-100.0); MEAN PLATELET VOLUME 7.7 fL (7.4-11.0); MONOCYTES # (AUTO) 0.4 x10^3/uL (0.3-0.8); MONOCYTES % (AUTO) 4.4 % (0.0-13.0); NEUTROPHILS # (AUTO) 6.1 x10^3/uL (2.2-4.8); NEUTROPHILS % (AUTO) 76.8 % (42.0-75.0); RED BLOOD COUNT 2.96 X10^6/uL (3.5-5.4); RED CELL DISTRIBUTION WIDTH 15.1 % (11.6-16.5)
[2021-09-06 04:34] LABS: ALANINE AMINOTRANSFERASE 11 Units/L (12-78); ALBUMIN 1.7 g/dL (3.4-5.0); ALKALINE PHOSPHATASE 85 Units/L (46-116); ASPARTATE AMINO TRANSFERASE 24 Units/L (15-37); BLOOD UREA NITROGEN 15 mg/dL (7-18); CALCIUM 7.5 mg/dL (8.5-10.1); CARBON DIOXIDE 15.5 mmol/L (21-32); CHLORIDE 112 mmol/L (98-107); COR CA(FOR HYPOALB) 9.3 mg/dL (8.5-10.1); CREATININE 2.68 mg/dL (0.55-1.02); SODIUM 136 mmol/L (136-145); TOTAL PROTEIN 5.3 g/dL (6.4-8.2); eGFR NON BLACK RACES 19 (>60)
[2021-09-06] MEDS: APRESOLINE TAB 25 MG PO SCH ×3 (06:12→21:05)
[2021-09-06] MEDS ORDERED: TOPROL XL PO ONE (09:04)
[2021-09-06] MEDS: CYTOTEC PO SCH ×4 (09:19→21:04)
[2021-09-06] MEDS: TOPROL XL PO SCH (09:20)
[2021-09-06] MEDS: SYNTHROID 150 mcg TAB PO SCH (09:20)
[2021-09-06] MEDS: PROTONIX TAB 40 MG PO SCH ×2 (09:20→21:05)
[2021-09-06] MEDS: NORVASC TAB 10 MG PO SCH (09:20)
[2021-09-06] MEDS: ZESTRIL TAB 40 MG PO SCH (09:20)
[2021-09-06] MEDS: COLACE CAP 100 MG PO SCH (21:04)
[2021-09-06] MEDS: MIRALAX POWDER (1 DOSE 17 G) PO SCH (21:04)
[2021-09-06] MEDS: NORCO 5/325 MG TAB PO PRN (21:06)
[2021-09-06] MEDS: ZOFRAN TAB 4 MG SL PRN (21:07)
[2021-09-07 04:51] LABS: BASOPHILS # (AUTO) 0.1 X10^3/uL (0.0-0.1); BASOPHILS % (AUTO) 2.1 % (0.2-1.0); EOSINOPHILS # (AUTO) 0.2 x10^3/uL (0.0-0.2); EOSINOPHILS % (AUTO) 2.7 % (0.9-2.9); HEMATOCRIT 27.4 % (36.0-47.0); HEMOGLOBIN 9.3 g/dL (12.0-16.0); LYMPHOCYTES # (AUTO) 1.5 X10^3/uL (1.3-2.9); LYMPHOCYTES % (AUTO) 21.1 % (21.0-51.0); MEAN CORPUSCULAR HEMOGLOBIN 31.4 pg (27.0-34.0); MEAN CORPUSCULAR HGB CONC 34.1 g/dL (33.0-35.0); MEAN CORPUSCULAR VOLUME 91.9 fL (80.0-100.0); MEAN PLATELET VOLUME 7.3 fL (7.4-11.0); MONOCYTES # (AUTO) 0.3 x10^3/uL (0.3-0.8); NEUTROPHILS # (AUTO) 4.9 x10^3/uL (2.2-4.8); NEUTROPHILS % (AUTO) 69.1 % (42.0-75.0); RED BLOOD COUNT 2.98 X10^6/uL (3.5-5.4)
[2021-09-07 05:37] LABS: ALANINE AMINOTRANSFERASE 13 Units/L (12-78); ALBUMIN 1.8 g/dL (3.4-5.0); ALKALINE PHOSPHATASE 88 Units/L (46-116); ASPARTATE AMINO TRANSFERASE 17 Units/L (15-37); BLOOD UREA NITROGEN 17 mg/dL (7-18); CALCIUM 7.5 mg/dL (8.5-10.1); CHLORIDE 112 mmol/L (98-107); COR CA(FOR HYPOALB) 9.3 mg/dL (8.5-10.1); CREATININE 2.87 mg/dL (0.55-1.02); SODIUM 136 mmol/L (136-145); TOTAL PROTEIN 5.4 g/dL (6.4-8.2); eGFR NON BLACK RACES 17 (>60)
[2021-09-07 05:39] LABS: CARBON DIOXIDE 13.8 mmol/L (21-32)
[2021-09-07] MEDS: APRESOLINE TAB 25 MG PO SCH ×3 (06:14→21:48)
[2021-09-07] MEDS ORDERED: TOPROL XL PO ONE (08:24)
[2021-09-07] MEDS: CYTOTEC PO SCH ×4 (08:31→21:47)
[2021-09-07] MEDS: NORVASC TAB 10 MG PO SCH (08:31)
[2021-09-07] MEDS: PROTONIX TAB 40 MG PO SCH ×2 (08:31→21:47)
[2021-09-07] MEDS: ZESTRIL TAB 40 MG PO SCH (08:31)
[2021-09-07] MEDS: SYNTHROID 150 mcg TAB PO SCH (08:32)
[2021-09-07] MEDS: TOPROL XL PO SCH (08:32)
[2021-09-07] MEDS: ZOFRAN TAB 4 MG SL PRN (08:41)
--- NOTE | 2021-09-07 09:33 | PCM.PROG ---
Progress Note - Progress Note for Day of Date of Exam: 09/06/21 - Subjective Subjective: WAS ADMITTED ON 08/28/21 FOR TREATMENT OF ACUTE ON CHRONIC RENAL FAILURE, UTI, ANEMIA DUE TO UPPER GI BLEED, HTN, AND DM II. SHE HAS RECEIVED A TOTAL OF THREE UNITS OF PRBC SINCE ADMISSION. PLANS ARE IN PLACE FOR PATIENT TO BE DISCHARGED TO [facility] FOR REHAB DUE TO DECONDITIONING. TODAY, SHE IS ALERT AND ORIENTED, LYING IN BED ON MORNING ROUNDS. SHE REPORTS GENERALIZED WEAKNESS AND KNEE PAIN THIS MORNING. 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 ON EXAMINATION, HEART IS REGULAR IN RATE AND RHYTHM. BILATERAL LUNGS NOTED WITH DIMINISHED LUNG SOUNDS THROUGHOUT. ABDOMEN IS ROUND, SOFT, AND NON-TENDER WITH NORMAL BOWEL SOUNDS NOTED IN ALL QUADRANTS. HER VITALS THIS MORNING ARE: 97.7-76-20-95%-143/65. LABS WERE OBTAINED. WBC 8.0, RBC 2.96, HGB 9.4, HCT 27.4, PLT COUNT 211, SODIUM 136, POTASSIUM 3.9, CHLORIDE 112, CARBON DIOXIDE 15.5, BUN 15, CREATININE 2.68, GLUCOSE 71, CALCIUM 7.5, AST 24, ALT 11, ALK PHOS 85, TOTAL PROTEIN 5.3, ALBUMIN 1.7. SHE IS CURRENTLY RECEIVING NORMAL SALINE AT 50 ML/HR, NORVASC 10MG PO DAILY, COLACE 200MG PO HS, APRESOLINE 100MG PO TID, NORCO 5/325MG PO Q6H PRN, SYNTHROID 150MCG PO DIALY, ZESTRIL 40MG PO DAILY, TOPROL XL 200MG PO DAILY, CYTOTEC 100MG PO QID, ZOFRAN 4MG IV Q6H PRN, PORTONIX 40MG PO BID, MIRALAX 17G PO HS. WE WILL CONTINUE WITH CURRENT PLAN OF CARE TODAY. OTHERWISE, WE PLAN TO FOLLOW UP WITH AM LABS AND CONTINUE TO MONITOR. TIME SPENT ON CLINICAL ASSESSMENT, REVIWING LABS AND IMAGING, DECISION MAKING, AND DOCUMENTATION GREATER THAN 45 MINUTES. - Past Medical Family Social History Past Med/Fam/Surg Hx: No changes since H&P Allergies: Allergies No Known Drug Allergies Allergy (Verified 10/04/20 01:23) - Review of Systems ROS: No change since H&P - Vital Signs and I&O's Vital Signs: Temperature 97.8 F Pulse Rate [Brachial] 64 Pulse Rate [Left Radial] 68 Pulse Rate 80 Respiratory Rate 20 Blood Pressure [Right Arm] 144/65 Blood Pressure [Left Arm] 133/63 Blood Pressure 139/58 O2 Sat by Pulse Oximetry 94 Intake and Output: Intake & Output 09/04/21 09/05/21 09/06/21 09/07/21 11:59 11:59 11:59 11:59 Intake Total 2360 / 2360 980 / 980 1090 / 1090 360 / 360 Balance 2360 / 2360 980 / 980 1090 / 1090 360 / 360 - Physical Exam Oriented: Normal Eyes: Normal Ear: Normal Nose: Normal Throat: Normal Respiratory: Diminished Cardiovascular: Normal : Normal Auscultation: Bowel Sounds: Normal Palpation: Normal Tenderness: Normal Skin: Normal Musculoskeletal: Knee, Tender Psychiatric: Normal Mood Description: Calm Affect: Normal Speech Pattern: Clear, Appropriate - Laboratory and Diagnostics Result Diagrams: 09/07/21 03:55 09/07/21 03:55 Labs: 08/28/21 12:55 Urine,Catheterized Urine Culture - Final Laboratory WBC 7.0 X10^3/uL (3.6-10.0) 09/07/21 03:55 RBC 2.98 X10^6/uL (3.5-5.4) L 09/07/21 03:55 Hgb 9.3 g/dL (12.0-16.0) L 09/07/21 03:55 Hct 27.4 % (36.0-47.0) L 09/07/21 03:55 MCV 91.9 fL (80.0-100.0) 09/07/21 03:55 MCH 31.4 pg (27.0-34.0) 09/07/21 03:55 MCHC 34.1 g/dL (33.0-35.0) 09/07/21 03:55 RDW 15.0 % (11.6-16.5) 09/07/21 03:55 Plt Count 240 X10^3/uL (150.0-450.0) 09/07/21 03:55 MPV 7.3 fL (7.4-11.0) L 09/07/21 03:55 Neut % (Auto) 69.1 % (42.0-75.0) 09/07/21 03:55 Lymph % (Auto) 21.1 % (21.0-51.0) 09/07/21 03:55 [place] % (Auto) 5.0 % (0.0-13.0) 09/07/21 03:55 Eos % (Auto) 2.7 % (0.9-2.9) 09/07/21 03:55 Baso % (Auto) 2.1 % (0.2-1.0) H 09/07/21 03:55 Neut # (Auto) 4.9 x10^3/uL (2.2-4.8) H 09/07/21 03:55 Lymph # (Auto) 1.5 X10^3/uL (1.3-2.9) 09/07/21 03:55 [place] # (Auto) 0.3 x10^3/uL (0.3-0.8) 09/07/21 03:55 Eos # (Auto) 0.2 x10^3/uL (0.0-0.2) 09/07/21 03:55 Baso # (Auto) 0.1 X10^3/uL (0.0-0.1) 09/07/21 03:55 Absolute Nucleated RBC 0.1 /100WBC 09/07/21 03:55 Sodium 136 mmol/L (136-145) 09/07/21 03:55 Corrected Sodium TNP 09/07/21 03:55 Potassium 3.8 mmol/L (3.5-5.1) 09/07/21 03:55 Chloride 112 mmol/L (98-107) H 09/07/21 03:55 Carbon Dioxide 13.8 mmol/L (21-32) L* 09/07/21 03:55 BUN 17 mg/dL (7-18) 09/07/21 03:55 Creatinine 2.87 mg/dL (0.55-1.02) H 09/07/21 03:55 Est GFR (MDRD) Af Amer 21 (>60) L 09/07/21 03:55 Est GFR (MDRD) Non-Af 17 (>60) L 09/07/21 03:55 Glucose 71 mg/dL (65-99) 09/07/21 03:55 POC Glucose (mg/dL) 83 mg/dL (65-99) 09/06/21 17:09 Calcium 7.5 mg/dL (8.5-10.1) L 09/07/21 03:55 Corrected Calcium 9.3 mg/dL (8.5-10.1) 09/07/21 03:55 Total Bilirubin 0.20 mg/dL (0.2-1.0) 09/07/21 03:55 AST 17 Units/L (15-37) 09/07/21 03:55 ALT 13 Units/L (12-78) 09/07/21 03:55 Alkaline Phosphatase 88 Units/L (46-116) 09/07/21 03:55 Creatine Kinase 139 Units/L (26-192) 08/28/21 08:28 CK-MB (CK-2) 3.4 ng/mL (0-4.0) 08/28/21 08:28 CK/CKMB % Calc 2.5 % (<4) 08/28/21 08:28 Troponin I High Sens 50.5 ng/L (4.0-60.0) 08/28/21 08:28 Total Protein 5.4 g/dL (6.4-8.2) L 09/07/21 03:55 Albumin 1.8 g/dL (3.4-5.0) L 09/07/21 03:55 Globulin 3.6 g/dL (2.5-4.5) 09/07/21 03:55 Albumin/Globulin Ratio 0.5 Ratio (1.1-2.1) L 09/07/21 03:55 Lipase 161 Units/L (73-393) 08/28/21 08:28 Specimen Type Catherized urine 08/28/21 12:55 Urine Color Yellow (YELLOW) 08/28/21 12:55 Urine Appearance Slightly hazy (CLEAR) 08/28/21 12:55 Urine pH 6.0 (5.0 - 8.0) 08/28/21 12:55 Ur Specific [place]ummer 1.015 (1.000-1.030) 08/28/21 12:55 Urine Protein 3+ (NEGATIVE) 08/28/21 12:55 Urine Glucose (UA) Negative (NEGATIVE) 08/28/21 12:55 Urine Ketones Negative (NEGATIVE) 08/28/21 12:55 Urine Blood 3+ (NEGATIVE) 08/28/21 12:55 Urine Nitrite Negative (NEGATIVE) 08/28/21 12:55 Urine Bilirubin Negative (NEGATIVE) 08/28/21 12:55 Urine Urobilinogen Normal (NORMAL) 08/28/21 12:55 Ur Leukocyte Esterase 3+ (NEGATIVE) 08/28/21 12:55 Urine RBC 5-10 /HPF (0-3) A 08/28/21 12:55 Urine WBC 30-50 /HPF (0-5) A 08/28/21 12:55 Ur Squamous Epith Cells Rare /HPF (NEGATIVE) 08/28/21 12:55 Amorphous Sediment Trace /HPF (NEGATIVE) 08/28/21 12:55 Urine Bacteria Trace /HPF (NEGATIVE) 08/28/21 12:55 Hyaline Casts Rare /LPF (NEGATIVE) 08/28/21 12:55 Urine Mucus Rare /HPF (NEGATIVE) 08/28/21 12:55 Ur Culture Indicated? Yes/culture set up 08/28/21 12:55 Stool Description 30 g. soft/black 08/30/21 00:42 Stl Occult Blood (IFOB) Positive (NEGATIVE) A 08/30/21 00:42 SARS-CoV-2 (PCR) Negative (NEGATIVE) 08/28/21 09:44 Blood Type A NEGATIVE 08/29/21 01:00 Antibody Screen Negative 08/28/21 11:18 Crossmatch See Detail 08/28/21 11:18 Tx React Prelim Eval See comment 08/29/21 01:00 Tx React Symptoms Drop in bp >30mm 08/29/21 01:00 Reaction Path Interpret See comment 08/29/21 01:00 Reaction Pathol Consult Kev angel md 08/29/21 01:00 Blood Bank Comment Performed by Debo 08/29/21 01:00 - Plan (1) Acute nontraumatic kidney injury Status: Acute (2) UTI (urinary tract infection) Status: Acute Qualifiers: Urinary tract infection type: site unspecified Hematuria presence: without hematuria Qualified Code(s): N39.0 - Urinary tract infection, site not specified (3) Anemia Status: Acute Qualifiers: Anemia type: unspecified type Qualified Code(s): D64.9 - Anemia, unspecified (4) Left knee pain Status: Acute Qualifiers: Chronicity: unspecified Qualified Code(s): M25.562 - Pain in left knee (5) HTN (hypertension) Status: Chronic Qualifiers: Hypertension type: primary hypertension Qualified Code(s): I10 - Essential (primary) hypertension (6) DM II (diabetes mellitus, type II), controlled Status: Chronic Qualifiers: Diabetes mellitus buttermaker continuous churn insulin use: unspecified buttermaker continuous churn insulin use status Diabetes mellitus complication status: with unspecified complications Qualified Code(s): E11.8 - Type 2 diabetes mellitus with unspecified complications
[2021-09-07] MEDS: MIRALAX POWDER (1 DOSE 17 G) PO SCH (21:47)
[2021-09-07] MEDS: COLACE CAP 100 MG PO SCH (21:47)
--- NOTE | 2021-09-07 22:02 | PCM.PROG ---
Progress Note - Progress Note for Day of Date of Exam: 09/07/21 - Subjective Subjective: WAS ADMITTED ON 08/28/21 FOR TREATMENT OF ACUTE ON CHRONIC RENAL FAILURE, UTI, ANEMIA DUE TO UPPER GI BLEED, HTN, AND DM II. SHE HAS RECEIVED A TOTAL OF THREE UNITS OF PRBC SINCE ADMISSION. PLANS ARE IN PLACE FOR PATIENT TO BE DIS[facility] DUE TO DECONDITIONING. TODAY, SHE IS ALERT AND ORIENTED, LYING IN BED ON MORNING ROUNDS. SHE REPORTS GENERALIZED WEAKNESS AND KNEE PAIN THIS MORNING. 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 ON EXAMINATION, HEART IS REGULAR IN RATE AND RHYTHM. BILATERAL LUNGS NOTED WITH DIMINISHED LUNG SOUNDS THROUGHOUT. ABDOMEN IS ROUND, SOFT, AND NON-TENDER WITH NORMAL BOWEL SOUNDS NOTED IN ALL QUADRANTS. HER VITALS THIS MORNING ARE: 97.7-76-20-95%-143/65. LABS WERE OBTAINED. WBC 7.0, RBC 2.98, HGB 9.3, HCT 27.4, SODIUM 136, POTASSIUM 3.8, CHLORIDE 112, CARBON DIOXIDE 13.8, BUN 17, CREATININE 2.87, CALCIUM 7.5, AST 17, ALT 13, ALK PHOS 88, TOTAL PROTEIN 5.4, ALBUMIN 1.8. SHE IS CURRENTLY RECEIVING NORMAL SALINE AT 50 ML/HR, NORVASC 10MG PO DAILY, COLACE 200MG PO HS, APRESOLINE 100MG PO TID, NORCO 5/325M G PO Q6H PRN, SYNTHROID 150MCG PO DIALY, ZESTRIL 40MG PO DAILY, TOPROL XL 200MG PO DAILY, CYTOTEC 100MG PO QID, ZOFRAN 4MG IV Q6H PRN, PORTONIX 40MG PO BID, MIRALAX 17G PO HS. WE WILL CONTINUE WITH CURRENT PLAN OF CARE TODAY. OTHERWISE, WE PLAN TO FOLLOW UP WITH AM LABS AND CONTINUE TO MONITOR. TIME SPENT ON CLINICAL ASSESSMENT, REVIWING LABS AND IMAGING, DECISION MAKING, AND DOCUMENTATION GREATER THAN 45 MINUTES. - Past Medical Family Social History Past Med/Fam/Surg Hx: No changes since H&P Allergies: Allergies No Known Drug Allergies Allergy (Verified 10/04/20 01:23) - Review of Systems ROS: No change since H&P - Vital Signs and I&O's Vital Signs: Temperature 98.8 F Pulse Rate [Brachial] 69 Pulse Rate [Left Radial] 68 Pulse Rate 80 Respiratory Rate 20 Blood Pressure [Right Arm] 150/67 Blood Pressure [Left Arm] 140/65 Blood Pressure 139/58 O2 Sat by Pulse Oximetry 95 Intake and Output: Intake & Output 09/05/21 09/06/21 09/07/21 09/08/21 11:59 11:59 11:59 11:59 Intake Total 980 / 980 1090 / 1090 360 / 360 640 / 640 Balance 980 / 980 1090 / 1090 360 / 360 640 / 640 - Physical Exam Oriented: Normal Eyes: Normal Ear: Normal Nose: Normal Throat: Normal Respiratory: Diminished Cardiovascular: Normal : Normal Auscultation: Bowel Sounds: Normal Tenderness: Normal Skin: Normal Musculoskeletal: Knee, Tender Psychiatric: Normal Mood Description: Calm Affect: Normal Speech Pattern: Clear, Appropriate - Laboratory and Diagnostics Result Diagrams: 09/07/21 03:55 09/07/21 03:55 Labs: 08/28/21 12:55 Urine,Catheterized Urine Culture - Final Laboratory WBC 7.0 X10^3/uL (3.6-10.0) 09/07/21 03:55 RBC 2.98 X10^6/uL (3.5-5.4) L 09/07/21 03:55 Hgb 9.3 g/dL (12.0-16.0) L 09/07/21 03:55 Hct 27.4 % (36.0-47.0) L 09/07/21 03:55 MCV 91.9 fL (80.0-100.0) 09/07/21 03:55 MCH 31.4 pg (27.0-34.0) 09/07/21 03:55 MCHC 34.1 g/dL (33.0-35.0) 09/07/21 03:55 RDW 15.0 % (11.6-16.5) 09/07/21 03:55 Plt Count 240 X10^3/uL (150.0-450.0) 09/07/21 03:55 MPV 7.3 fL (7.4-11.0) L 09/07/21 03:55 Neut % (Auto) 69.1 % (42.0-75.0) 09/07/21 03:55 Lymph % (Auto) 21.1 % (21.0-51.0) 09/07/21 03:55 [place] % (Auto) 5.0 % (0.0-13.0) 09/07/21 03:55 Eos % (Auto) 2.7 % (0.9-2.9) 09/07/21 03:55 Baso % (Auto) 2.1 % (0.2-1.0) H 09/07/21 03:55 Neut # (Auto) 4.9 x10^3/uL (2.2-4.8) H 09/07/21 03:55 Lymph # (Auto) 1.5 X10^3/uL (1.3-2.9) 09/07/21 03:55 [place] # (Auto) 0.3 x10^3/uL (0.3-0.8) 09/07/21 03:55 Eos # (Auto) 0.2 x10^3/uL (0.0-0.2) 09/07/21 03:55 Baso # (Auto) 0.1 X10^3/uL (0.0-0.1) 09/07/21 03:55 Absolute Nucleated RBC 0.1 /100WBC 09/07/21 03:55 Sodium 136 mmol/L (136-145) 09/07/21 03:55 Corrected Sodium TNP 09/07/21 03:55 Potassium 3.8 mmol/L (3.5-5.1) 09/07/21 03:55 Chloride 112 mmol/L (98-107) H 09/07/21 03:55 Carbon Dioxide 13.8 mmol/L (21-32) L* 09/07/21 03:55 BUN 17 mg/dL (7-18) 09/07/21 03:55 Creatinine 2.87 mg/dL (0.55-1.02) H 09/07/21 03:55 Est GFR (MDRD) Af Amer 21 (>60) L 09/07/21 03:55 Est GFR (MDRD) Non-Af 17 (>60) L 09/07/21 03:55 Glucose 71 mg/dL (65-99) 09/07/21 03:55 POC Glucose (mg/dL) 80 mg/dL (65-99) 09/07/21 20:49 Calcium 7.5 mg/dL (8.5-10.1) L 09/07/21 03:55 Corrected Calcium 9.3 mg/dL (8.5-10.1) 09/07/21 03:55 Total Bilirubin 0.20 mg/dL (0.2-1.0) 09/07/21 03:55 AST 17 Units/L (15-37) 09/07/21 03:55 ALT 13 Units/L (12-78) 09/07/21 03:55 Alkaline Phosphatase 88 Units/L (46-116) 09/07/21 03:55 Creatine Kinase 139 Units/L (26-192) 08/28/21 08:28 CK-MB (CK-2) 3.4 ng/mL (0-4.0) 08/28/21 08:28 CK/CKMB % Calc 2.5 % (<4) 08/28/21 08:28 Troponin I High Sens 50.5 ng/L (4.0-60.0) 08/28/21 08:28 Total Protein 5.4 g/dL (6.4-8.2) L 09/07/21 03:55 Albumin 1.8 g/dL (3.4-5.0) L 09/07/21 03:55 Globulin 3.6 g/dL (2.5-4.5) 09/07/21 03:55 Albumin/Globulin Ratio 0.5 Ratio (1.1-2.1) L 09/07/21 03:55 Lipase 161 Units/L (73-393) 08/28/21 08:28 Specimen Type Catherized urine 08/28/21 12:55 Urine Color Yellow (YELLOW) 08/28/21 12:55 Urine Appearance Slightly hazy (CLEAR) 08/28/21 12:55 Urine pH 6.0 (5.0 - 8.0) 08/28/21 12:55 Ur Specific [place] 1.015 (1.000-1.030) 08/28/21 12:55 Urine Protein 3+ (NEGATIVE) 08/28/21 12:55 Urine Glucose (UA) Negative (NEGATIVE) 08/28/21 12:55 Urine Ketones Negative (NEGATIVE) 08/28/21 12:55 Urine Blood 3+ (NEGATIVE) 08/28/21 12:55 Urine Nitrite Negative (NEGATIVE) 08/28/21 12:55 Urine Bilirubin Negative (NEGATIVE) 08/28/21 12:55 Urine Urobilinogen Normal (NORMAL) 08/28/21 12:55 Ur Leukocyte Esterase 3+ (NEGATIVE) 08/28/21 12:55 Urine RBC 5-10 /HPF (0-3) A 08/28/21 12:55 Urine WBC 30-50 /HPF (0-5) A 08/28/21 12:55 Ur Squamous Epith Cells Rare /HPF (NEGATIVE) 08/28/21 12:55 Amorphous Sediment Trace /HPF (NEGATIVE) 08/28/21 12:55 Urine Bacteria Trace /HPF (NEGATIVE) 08/28/21 12:55 Hyaline Casts Rare /LPF (NEGATIVE) 08/28/21 12:55 Urine Mucus Rare /HPF (NEGATIVE) 08/28/21 12:55 Ur Culture Indicated? Yes/culture set up 08/28/21 12:55 Stool Description 30 g. soft/black 08/30/21 00:42 Stl Occult Blood (IFOB) Positive (NEGATIVE) A 08/30/21 00:42 SARS-CoV-2 (PCR) Negative (NEGATIVE) 08/28/21 09:44 Blood Type A NEGATIVE 08/29/21 01:00 Antibody Screen Negative 08/28/21 11:18 Crossmatch See Detail 08/28/21 11:18 Tx React Prelim Eval See comment 08/29/21 01:00 Tx React Symptoms Drop in bp >30mm 08/29/21 01:00 Reaction Path Interpret See comment 08/29/21 01:00 Reaction Pathol Consult Kev angel md 08/29/21 01:00 Blood Bank Comment Performed by Debo 08/29/21 01:00 - Plan (1) Acute nontraumatic kidney injury Status: Acute (2) UTI (urinary tract infection) Status: Acute Qualifiers: Urinary tract infection type: site unspecified Hematuria presence: without hematuria Qualified Code(s): N39.0 - Urinary tract infection, site not specified (3) Anemia Status: Acute Qualifiers: Anemia type: unspecified type Qualified Code(s): D64.9 - Anemia, unspecified (4) Left knee pain Status: Acute Qualifiers: Chronicity: unspecified Qualified Code(s): M25.562 - Pain in left knee (5) HTN (hypertension) Status: Chronic Qualifiers: Hypertension type: primary hypertension Qualified Code(s): I10 - Essential (primary) hypertension (6) DM II (diabetes mellitus, type II), controlled Status: Chronic Qualifiers: Diabetes mellitus shelter insulin use: unspecified manager long term care insulin use status Diabetes mellitus complication status: with unspecified complications Qualified Code(s): E11.8 - Type 2 diabetes mellitus with unspecified complications
[2021-09-08 04:50] LABS: ALANINE AMINOTRANSFERASE 9 Units/L (12-78); ALBUMIN 1.7 g/dL (3.4-5.0); ALKALINE PHOSPHATASE 88 Units/L (46-116); ASPARTATE AMINO TRANSFERASE 16 Units/L (15-37); BLOOD UREA NITROGEN 19 mg/dL (7-18); CALCIUM 7.5 mg/dL (8.5-10.1); CARBON DIOXIDE 15.4 mmol/L (21-32); CHLORIDE 111 mmol/L (98-107); COR CA(FOR HYPOALB) 9.3 mg/dL (8.5-10.1); CREATININE 3.01 mg/dL (0.55-1.02); SODIUM 137 mmol/L (136-145); TOTAL PROTEIN 5.1 g/dL (6.4-8.2); eGFR NON BLACK RACES 16 (>60)
[2021-09-08 04:58] LABS: BASOPHILS % (AUTO) 0.5 % (0.2-1.0); EOSINOPHILS # (AUTO) 0.1 x10^3/uL (0.0-0.2); EOSINOPHILS % (AUTO) 1.5 % (0.9-2.9); HEMATOCRIT 26.4 % (36.0-47.0); HEMOGLOBIN 9.1 g/dL (12.0-16.0); LYMPHOCYTES # (AUTO) 1.2 X10^3/uL (1.3-2.9); LYMPHOCYTES % (AUTO) 13.6 % (21.0-51.0); MEAN CORPUSCULAR HEMOGLOBIN 31.4 pg (27.0-34.0); MEAN CORPUSCULAR HGB CONC 34.3 g/dL (33.0-35.0); MEAN CORPUSCULAR VOLUME 91.4 fL (80.0-100.0); MEAN PLATELET VOLUME 7.4 fL (7.4-11.0); MONOCYTES # (AUTO) 0.4 x10^3/uL (0.3-0.8); MONOCYTES % (AUTO) 5.2 % (0.0-13.0); NEUTROPHILS # (AUTO) 6.8 x10^3/uL (2.2-4.8); NEUTROPHILS % (AUTO) 79.2 % (42.0-75.0); RED BLOOD COUNT 2.89 X10^6/uL (3.5-5.4); RED CELL DISTRIBUTION WIDTH 15.1 % (11.6-16.5); WHITE BLOOD COUNT 8.6 X10^3/uL (3.6-10.0)
[2021-09-08] MEDS: APRESOLINE TAB 25 MG PO SCH ×3 (05:53→21:46)
[2021-09-08] MEDS ORDERED: TOPROL XL PO ONE (07:46)
[2021-09-08] MEDS: NORVASC TAB 10 MG PO SCH (08:01)
[2021-09-08] MEDS: CYTOTEC PO SCH ×4 (08:01→21:43)
[2021-09-08] MEDS: TOPROL XL PO SCH (08:02)
[2021-09-08] MEDS: SYNTHROID 150 mcg TAB PO SCH (08:02)
[2021-09-08] MEDS: PROTONIX TAB 40 MG PO SCH ×2 (08:02→21:42)
[2021-09-08] MEDS: ZESTRIL TAB 40 MG PO SCH (08:03)
[2021-09-08] MEDS: MIRALAX POWDER (1 DOSE 17 G) PO SCH (21:42)
[2021-09-08] MEDS: COLACE CAP 100 MG PO SCH (21:43)
[2021-09-09 04:34] LABS: BASOPHILS % (AUTO) 0.7 % (0.2-1.0); EOSINOPHILS # (AUTO) 0.1 x10^3/uL (0.0-0.2); EOSINOPHILS % (AUTO) 1.9 % (0.9-2.9); HEMATOCRIT 26.7 % (36.0-47.0); HEMOGLOBIN 9.2 g/dL (12.0-16.0); LYMPHOCYTES # (AUTO) 1.4 X10^3/uL (1.3-2.9); LYMPHOCYTES % (AUTO) 20.9 % (21.0-51.0); MEAN CORPUSCULAR HEMOGLOBIN 31.6 pg (27.0-34.0); MEAN CORPUSCULAR HGB CONC 34.4 g/dL (33.0-35.0); MEAN PLATELET VOLUME 7.6 fL (7.4-11.0); MONOCYTES # (AUTO) 0.4 x10^3/uL (0.3-0.8); MONOCYTES % (AUTO) 5.2 % (0.0-13.0); NEUTROPHILS # (AUTO) 4.9 x10^3/uL (2.2-4.8); NEUTROPHILS % (AUTO) 71.3 % (42.0-75.0); RED CELL DISTRIBUTION WIDTH 15.2 % (11.6-16.5); WHITE BLOOD COUNT 6.9 X10^3/uL (3.6-10.0)
[2021-09-09 04:39] LABS: ALANINE AMINOTRANSFERASE 11 Units/L (12-78); ALBUMIN 1.8 g/dL (3.4-5.0); ALKALINE PHOSPHATASE 95 Units/L (46-116); ASPARTATE AMINO TRANSFERASE 22 Units/L (15-37); BLOOD UREA NITROGEN 21 mg/dL (7-18); CALCIUM 7.8 mg/dL (8.5-10.1); CHLORIDE 111 mmol/L (98-107); COR CA(FOR HYPOALB) 9.6 mg/dL (8.5-10.1); CREATININE 3.06 mg/dL (0.55-1.02); SODIUM 135 mmol/L (136-145); TOTAL PROTEIN 5.4 g/dL (6.4-8.2); eGFR NON BLACK RACES 16 (>60)
[2021-09-09] MEDS: APRESOLINE TAB 25 MG PO SCH ×2 (05:40→13:28)
[2021-09-09] MEDS ORDERED: TOPROL XL PO ONE (07:47)
[2021-09-09] MEDS: CYTOTEC PO SCH ×2 (08:41→13:28)
[2021-09-09] MEDS: PROTONIX TAB 40 MG PO SCH (08:41)
[2021-09-09] MEDS: TOPROL XL PO SCH (08:42)
[2021-09-09] MEDS: SYNTHROID 150 mcg TAB PO SCH (08:42)
[2021-09-09] MEDS: NORVASC TAB 10 MG PO SCH (08:42)
[2021-09-09] MEDS: ZESTRIL TAB 40 MG PO SCH (08:43)
[2021-09-09] MEDS ORDERED: NS 1,000 ML IV 1,000 ML IV ONE (10:13)
[2021-09-09 10:32] VITALS: BMI 35.8
[2021-09-09 12:20] VITALS: BP 132/61
--- NOTE | 2021-09-09 14:37 | MRI ---
HISTORY[History of hyperkalemia traumatic kidney injury.]STUDYMRAABD without contrastCOMPARISONNone availableTechnique: Multiplanar multi sequences through the abdomen were performed without contrast following an angiogram protocolFINDINGSThere are trace bilateral pleural effusions. There is a moderate dextroscoliosis. The liver measuring length 14 centimeters.The abdominal aorta is normal in size, there is no focal aneurysm or dissection, no retroperitoneal masses. 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 There are bilateral single renal arteries without evidence of focal stenosisThere is trace perihepatic fluid, the spleen demonstrate no focal abnormalities. No adrenal masses, there bilateral normal-sized kidneys without hydronephrosis. There is some stranding in the soft tissues of the right flank region. The stomach is not distended. The pancreas demonstrate no abnormalities. 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
--- NOTE | 2021-09-14 06:06 | RAD ---
HISTORYPossible pneumoniaSTUDYAP chestCOMPARISONJune 2021FINDINGSHeart size remains normal. There are areas of airspace involvement in the left lower lung and right perihilar distribution. The right hilar complex is prominent. A small left pleural effusion may be present.IMPRESSIONInterval appearance of left-sided airspace disease and right perihilar infiltrate. Follow-up indicated, especially to evaluate the enlarging right hilum.Electronically signed by: SILVERIO MERINO (Sep 14, 2021 06:05:36)
== END 2021-09-09 14:00 | DRG 682 ==
LOC: SUPCPDRO → ER 08:13 → MERGE 10:06 → MED/SURG 10:06
PROVIDERS: ADMIT Obstetrics & Gynecology Obstetrics; ATTEND Obstetrics & Gynecology Obstetrics
DX: R26.89 Other abnormalities of gait and mobility; I95.89 Other hypotension; E11.65 Type 2 diabetes mellitus with hyperglycemia; F41.8 Other specified anxiety disorders; N18.9 Chronic kidney disease, unspecified; E86.0 Dehydration; R15.0 Incomplete defecation; I12.9 Hypertensive chronic kidney disease with stage 1 through stage 4 chronic kidney disease, or unspecified chronic kidney disease; R11.2 Nausea with vomiting, unspecified; E87.1 Hypo-osmolality and hyponatremia; D62 Acute posthemorrhagic anemia; K27.4 Chronic or unspecified peptic ulcer, site unspecified, with hemorrhage; N39.0 Urinary tract infection, site not specified; M25.562 Pain in left knee; E03.8 Other specified hypothyroidism; R19.7 Diarrhea, unspecified; Z20.822 Contact with and (suspected) exposure to COVID-19; N17.8 Other acute kidney failure; E87.5 Hyperkalemia

== ENCOUNTER 2021-09-14 11:17 | Inpatient (IN) ==
--- NOTE | 2021-09-14 12:30 | DR.URINEF ---
HPI Time Seen Time Seen by Provider: 09/14/21 12:28 HPI Comment HPI Comment: A 71 y/o female NHR brought over for dx. of UTI and pneumonia on tests done yesterday. She denies any distress and has no c/o. Reviewed Nurses Notes Reviewed: Yes Source History Provided: Patient and Penitentiary Mode of Arrival Mode of Arrival: Stretcher PMH PMH Past Medical History: Anxiety, Diabetes, Hypertension and Hypothyroidism Past Surgical History: Yes Surgical History: Cholecystectomy Social History Do you use any recreational Drugs:: No ROS Review of Systems Constitutional: No Symptoms Reported Eyes: No Symptoms Reported ENTM: No Symptoms Reported Respiratoy: No Symptoms Reported Cardiovascular: No Symptoms Reported Gastrointestinal/Abdominal: No Symptoms Reported Genitourinary: No Symptoms Reported Neurological: No Symptoms Reported Musculoskeletal: No Symptoms Reported Integumentary: No Symptoms Reported Hematologic/Lymphatic: No Symptoms Reported Endocrine: No Symptoms Reported Psychiatric: No Symptoms Reported PE Vital Signs Vitals: Temperature 98.1 F Pulse Rate 62 Respiratory Rate 18 Blood Pressure [Right Arm] 132/61 Blood Pressure 124/58 O2 Sat by Pulse Oximetry 95 General Limitations: No Limitations General Appearance: Alert and In No Apparent Distress Eyes Eye exam: Normal Appearance and EOMI ENT ENT Exam: Normal Exam, Normal Oropharynx, Normal External Ear Exam and Mucous Membranes Moist Neck Neck Exam: Normal Inspection, Full ROM and Trachea Midline Chest Chest Inspection: Normal Inspection Respiratory Respiratory Exam: Normal Lung Sounds Bilat Cardiovascular Cardiovascular Exam: Regular Rate, Normal Rhythm, Normal Heart Sounds, +S1 and +S2 Abdominal Exam Abdominal Exam: Normal Inspection, Normal Bowel Sounds and Soft Rectal Rectal Exam: Deferred Genitourinary External Exam: Female: Deferred Extremities Extremities Exam: Full ROM and Edema (2+) Back Back Exam: Normal Inspection Neurologic Neurological Exam: Alert and Oriented X3 Psychiatric Psychiatric Exam: Normal Affect and Normal Mood Skin Skin Exam: Intact COURSE Reevaluation 1st: Unchanged Education/Counseling Education/Counseling: Patient, Education and Counseling Educated On: Treatment, Diagnosis, Prognosis and Needs for Follow Up Opioid Opioid Risk Tool Age (Ganesh box if 16-45): No History of Preadolescent Sexual Abuse: No Total: 0 Total Score Risk Category: Low Risk Copyright: Isaiah MCCULLOUGH predicting aberrant behaviors Discharge Plan Diagnosis Discharge Problem: Pneumonia, Acute UTI, CKD (chronic kidney disease) stage 3, GFR 30-59 ml/min Discharge Plan Patient Disposition: 09 ADMITTED INPATIENT Condition: Stable
[2021-09-14] MEDS ORDERED: NS 1,000 ML IV 1,000 ML IV ONE (12:31)
[2021-09-14] MEDS ORDERED: NS 1,000 ML IV 1,000 ML ONE (12:57)
[2021-09-14] MEDS: ZOSYN VIAL 2.25 GRAMS 2.25 G in NS 100 ML IV 100 ML IV SCH ×2 (13:40→22:00)
[2021-09-14] MEDS ORDERED: PHARMACY CONSULT LTC MEDICATIONS XX SCH (16:00)
[2021-09-14] MEDS ORDERED: SALINE 3% 15 ML NEB TX NEB ONE (17:21)
[2021-09-14] MEDS ORDERED: SALINE 3% 15 ML NEB TX ONE (17:26)
[2021-09-14] MEDS ORDERED: XOPENEX 1.25 MG/3 ML NEBULE NEB ONE (17:26)
[2021-09-14] MEDS: XOPENEX 1.25 MG/3 ML NEBULE NEB SCH (17:30)
--- NOTE | 2021-09-14 19:17 | DR.H&P ---
H&P History & Physical for Day of: H&P Date: 09/14/21 Chief Complaint Chief Complaint: Fever/UTI/pneumonia Allergies Allergies Allergy/AdvReac Type Severity Reaction Status Date / Time No Known Drug Allergies Allergy Verified 10/04/20 01:23 History of Present Illness History of Present Illness: This is a 71-year-old female who was caught about last night. I was told that she had a fever of 102 F. I ordered a urinalysis, CBC, CMP and a chest x-ray. I was called today around noon was results and they said she had a urinary tract infection and pneumonia. For that instructed them to send her to the emergency department. Noticeable while at the ER physician working today reviewed everything and examined the patient and we agreed to go ahead admit the patient for inpatient treatment. Past Medical History Past Medical History: Anxiety, Diabetes, Hypertension and Hypothyroidism Past Surgical History Surgical History: Cholecystectomy Social History Does patient currently use any type of tobacco product: No Have you used tobacco products in the last 12 months: No Type of Tobacco Use: None Does any household member use tobacco: No Alcohol Use: None Drug Use: None Medications Home Medications: No Known Drug Allergies Allergy (Verified 10/04/20 01:23) CONTINUE taking the following medications albuterol sulfate 2.5 mg/3 mL (0.083 %) solution for nebulization 3 ml inhalation PRN PRN 09/14/21 [History] Labs Labs: Laboratory POC Glucose (mg/dL) 122 mg/dL (65-99) H 09/14/21 15:59 SARS-CoV-2 (PCR) Negative (NEGATIVE) 09/14/21 14:40 Review of Systems Constitutional: No Symptoms Reported ENT: No Symptoms Reported Respiratory: Cough Cardiovascular: No Symptoms Reported Gastrointestinal: No Symptoms Reported Genitourinary: Dysuria and Frequency Musculoskeletal: No Symptoms Reported Skin: No Symptoms Reported Neurological: No Symptoms Reported Physical Exam Vital Signs: Temperature 97.8 F Pulse Rate [Right Brachial] 66 Pulse Rate 66 Respiratory Rate 20 Blood Pressure [Right Arm] 103/53 Blood Pressure 124/58 O2 Sat by Pulse Oximetry 94 Oriented: Normal, Time, Person and Place Ear: Normal Nose: Normal Throat: Normal Respiratory: LML Diminished Cardiovascular: Normal : Normal Auscultation: Bowel Sounds: Normal Palpation: Normal Tenderness: Normal Skin: Normal Musculoskeletal: Normal Psychiatric: Normal Mood Description: Calm Affect: Normal Speech Pattern: Clear and Appropriate Assessment/Plan (1) UTI (urinary tract infection): Qualifiers: Hematuria presence: without hematuria Urinary tract infection type: site unspecified Qualified Code(s): N39.0 - Urinary tract infection, site not specified Status: Acute Plan: IV Zosyn. (2) Pneumonia: Status: Acute Plan: IV Zosyn. (3) CKD (chronic kidney disease) stage 3, GFR 30-59 ml/min: Status: Acute Plan: IV hydration. Recheck CMP in a.m. Review H&P Reviewed: Yes Patient was examined?: Yes
[2021-09-14] MEDS ORDERED: PULMICORT NEB TX 0.5 MG NEB ONE (19:22)
[2021-09-14] MEDS: PULMICORT NEB TX 0.5 MG NEB SCH (20:05)
[2021-09-15] MEDS: XOPENEX 1.25 MG/3 ML NEBULE NEB SCH ×4 (00:06→16:55)
--- NOTE | 2021-09-15 01:05 | DR.URINEF ---
HPI Time Seen Time Seen by Provider: 09/14/21 12:28 PCP Primary Care Physician: NILESH DEL ROSARIO HPI Comment HPI Comment: A 71 y/o female NHR brought in for evaluation of fever. Her provider had ordered labs. and CXR yesterday. The pt. herself has no c/o and she states she was brought over to the ED by the staff. Complaint Chief Complaint:: PATIENT HAD 102.5 YESTERDAY, 09/13/21, SHE HAS A 14.1 WBC, URINALYSIS SHOWED UTI, AND CHEST XRAY SHOWED POSSIBLE PNEUMONIA. PER NICANOR AWAN AT [facility] THAT DR. LAUREN STATED TO SEND PATIENT TO ER COVID-19 Coronavirus risk:travel/contact w/high risk person: No Has patient experienced Coronavirus symptoms: No Reviewed Nurses Notes Reviewed: Yes Source History Provided: Patient and Residential Mode of Arrival Mode of Arrival: Stretcher Timing Onset of Chief Complaint: 09/13/21 Context Onset: Spontaneous PMH PMH Past Medical History: Yes Past Medical History: Anxiety, Diabetes, Hypertension and Hypothyroidism Past Surgical History: Yes Surgical History: Cholecystectomy Family History History of Family Medical Conditions: No Social History Does patient currently use any type of tobacco product: No Have you used tobacco products in the last 12 months: No Type of Tobacco Use: None Does any household member use tobacco: No Alcohol Use: None Do you use any recreational Drugs:: No Lives With: Other Lives Where: Residential Travel Risk Coronavirus risk:travel/contact w/high risk person: No Has patient experienced Coronavirus symptoms: No Infectious screening In the last 2 months have you had wt loss of >10#?: NO Have you had fever, night sweats or hemotysis?: No Have you traveled outside the country in the last 6 months?: No Isolation: Standard ROS Review of Systems Constitutional: Fever Eyes: No Symptoms Reported ENTM: No Symptoms Reported Respiratoy: No Symptoms Reported Cardiovascular: No Symptoms Reported Gastrointestinal/Abdominal: No Symptoms Reported Genitourinary: No Symptoms Reported Neurological: No Symptoms Reported Musculoskeletal: No Symptoms Reported Integumentary: No Symptoms Reported Hematologic/Lymphatic: No Symptoms Reported Endocrine: No Symptoms Reported Psychiatric: No Symptoms Reported PE Vital Signs Vitals: Temperature 98.1 F Pulse Rate [Right Brachial] 96 Pulse Rate 61 Respiratory Rate 18 Blood Pressure [Right Arm] 101/53 Blood Pressure 124/58 O2 Sat by Pulse Oximetry 94 General Limitations: No Limitations General Appearance: Alert and In No Apparent Distress Head Head Exam: Normal Inspection, Atraumatic and Normocephalic Eyes Eye exam: Normal Appearance and EOMI ENT ENT Exam: Normal Exam, Normal Oropharynx, Normal External Ear Exam, Mucous Membranes Moist and TM's Normal Bilaterally Neck Neck Exam: Normal Inspection, Full ROM and Trachea Midline Chest Chest Inspection: Normal Inspection and Symmetric Chest Wall Rise Respiratory Respiratory Exam: Normal Lung Sounds Bilat Cardiovascular Cardiovascular Exam: Regular Rate, Normal Rhythm, Normal Heart Sounds, +S1 and +S2 Abdominal Exam Abdominal Exam: Normal Inspection, Normal Bowel Sounds, Soft and Other (Obese) Rectal Rectal Exam: Deferred Genitourinary External Exam: Female: Deferred Extremities Extremities Exam: Normal Inspection and Edema Back Back Exam: Normal Inspection and Full ROM Neurologic Neurological Exam: Alert Psychiatric Psychiatric Exam: Normal Affect and Normal Mood Skin Skin Exam: Intact COURSE Treatment Treatment: I spoke with the pt's. provider (Dr. LAUREN) and he would like to have the pt. treated in-house. Reevaluation 1st: Unchanged Education/Counseling Education/Counseling: Patient and Counseling Educated On: Treatment, Diagnosis, Prognosis and Needs for Follow Up ROR Labs Reviewed Laboratory Results Reviewed?: Yes XRAY XRAY Interpreted by: Radiologist X-ray Results: CXR: Interval appearance of left sided air-space disease and right perihilar infiltrate. Opioid Opioid Risk Tool Age (Ganesh box if 16-45): No History of Preadolescent Sexual Abuse: No Total: 0 Total Score Risk Category: Low Risk Copyright: Isaiah MCCULLOUGH predicting aberrant behaviors Discharge Plan Diagnosis Discharge Problem: Pneumonia, Acute UTI, CKD (chronic kidney disease) stage 3, GFR 30-59 ml/min Discharge Plan Patient Disposition: ADMITTED INPATIENT Condition: Stable
[2021-09-15] MEDS: ZOSYN VIAL 2.25 GRAMS 2.25 G in NS 100 ML IV 100 ML IV SCH ×3 (05:50→21:06)
[2021-09-15 06:13] LABS: BLOOD UREA NITROGEN 46 mg/dL (7-18); CALCIUM 7.5 mg/dL (8.5-10.1); CARBON DIOXIDE 15.3 mmol/L (21-32); CHLORIDE 109 mmol/L (98-107); CREATININE 5.28 mg/dL (0.55-1.02); SODIUM 135 mmol/L (136-145); eGFR NON BLACK RACES 9 (>60)
[2021-09-15 06:44] LABS: ALANINE AMINOTRANSFERASE 13 Units/L (12-78); ALBUMIN 1.7 g/dL (3.4-5.0); ALKALINE PHOSPHATASE 83 Units/L (46-116); ASPARTATE AMINO TRANSFERASE 19 Units/L (15-37); COR CA(FOR HYPOALB) 9.3 mg/dL (8.5-10.1); TOTAL PROTEIN 5.4 g/dL (6.4-8.2)
[2021-09-15 06:53] LABS: BASOPHILS % (AUTO) 0.5 % (0.2-1.0); EOSINOPHILS # (AUTO) 0.1 x10^3/uL (0.0-0.2); EOSINOPHILS % (AUTO) 1.6 % (0.9-2.9); HEMATOCRIT 22.6 % (36.0-47.0); HEMOGLOBIN 7.7 g/dL (12.0-16.0); LYMPHOCYTES # (AUTO) 0.9 X10^3/uL (1.3-2.9); LYMPHOCYTES % (AUTO) 9.6 % (21.0-51.0); MEAN CORPUSCULAR HEMOGLOBIN 31.7 pg (27.0-34.0); MEAN CORPUSCULAR VOLUME 93.2 fL (80.0-100.0); MEAN PLATELET VOLUME 8.4 fL (7.4-11.0); MONOCYTES # (AUTO) 0.4 x10^3/uL (0.3-0.8); MONOCYTES % (AUTO) 4.8 % (0.0-13.0); NEUTROPHILS # (AUTO) 7.5 x10^3/uL (2.2-4.8); NEUTROPHILS % (AUTO) 83.5 % (42.0-75.0); RED BLOOD COUNT 2.43 X10^6/uL (3.5-5.4); RED CELL DISTRIBUTION WIDTH 16.1 % (11.6-16.5)
[2021-09-15] MEDS: PULMICORT NEB TX 0.5 MG NEB SCH ×2 (08:28→21:09)
[2021-09-15] MEDS: PROTONIX INJ 40 MG VIAL IVP SCH ×2 (16:29→21:07)
[2021-09-15] MEDS: NS 1,000 ML IV 1,000 ML IV SCH (16:29)
--- NOTE | 2021-09-15 17:36 | PCM.PROG ---
Progress Note Progress Note for Day of Date of Exam: 09/15/21 Subjective Subjective: The patient is alert and awake this morning. She looks good while speaking to lower she reports and complains of no problems today. She is very pleasant and seems to look fairly good overall. Her creatinine is worse today up in the fives but her vital signs are stable overall. Is also noted her hemoglobin is dropped to 7.7 since admission. White blood cell count is normal at 9000 today. Past Medical Family Social History Allergies: Allergies No Known Drug Allergies Allergy (Verified 10/04/20 01:23) Review of Systems ROS: No change since H&P Vital Signs and I&O's Vital Signs: Temperature 98.3 F Pulse Rate [Right Brachial] 63 Pulse Rate 67 Respiratory Rate 18 Blood Pressure [Right Arm] 107/51 Blood Pressure 124/58 O2 Sat by Pulse Oximetry 96 Intake and Output: Intake & Output 09/13/21 09/14/21 09/15/21 09/16/21 11:59 11:59 11:59 11:59 Intake Total 980 / 980 200 / 200 Balance 980 / 980 200 / 200 Physical Exam Oriented: Normal, Time, Person and Place Ear: Normal Nose: Normal Throat: Normal Cardiovascular: Normal : Normal Auscultation: Bowel Sounds: Normal Palpation: Normal Tenderness: Normal Skin: Normal Musculoskeletal: Normal Psychiatric: Normal Mood Description: Calm Affect: Normal Speech Pattern: Clear Laboratory and Diagnostics Result Diagrams: 09/15/21 05:09/15/21 05:22 Labs: Laboratory WBC 9.0 X10^3/uL (3.6-10.0) 09/15/21 05: RBC 2.43 X10^6/uL (3.5-5.4) L 09/15/21 05:22 Hgb 7.7 g/dL (12.0-16.0) L 09/15/21 05: Hct 22.6 % (36.0-47.0) L 09/15/21 05: MCV 93.2 fL (80.0-100.0) 09/15/21 05: MCH 31.7 pg (27.0-34.0) 09/15/21 05: MCHC 34.0 g/dL (33.0-35.0) 09/15/21 05: RDW 16.1 % (11.6-16.5) 09/15/21 05:22 Plt Count 151 X10^3/uL (150.0-450.0) 09/15/21 05:22 MPV 8.4 fL (7.4-11.0) 09/15/21 05:22 Neut % (Auto) 83.5 % (42.0-75.0) H 09/15/21 05:22 Lymph % (Auto) 9.6 % (21.0-51.0) L 09/15/21 05:22 [place] % (Auto) 4.8 % (0.0-13.0) 09/15/21 05:22 Eos % (Auto) 1.6 % (0.9-2.9) 09/15/21 05:22 Baso % (Auto) 0.5 % (0.2-1.0) 09/15/21 05:22 Neut # (Auto) 7.5 x10^3/uL (2.2-4.8) H 09/15/21 05:22 Lymph # (Auto) 0.9 X10^3/uL (1.3-2.9) L 09/15/21 05:22 [place] # (Auto) 0.4 x10^3/uL (0.3-0.8) 09/15/21 05:22 Eos # (Auto) 0.1 x10^3/uL (0.0-0.2) 09/15/21 05:22 Baso # (Auto) 0.0 X10^3/uL (0.0-0.1) 09/15/21 05:22 Absolute Nucleated RBC 0.0 /100WBC 09/15/21 05:22 Sodium 135 mmol/L (136-145) L 09/15/21 05:22 Corrected Sodium TNP 09/15/21 05:22 Potassium 4.4 mmol/L (3.5-5.1) 09/15/21 05:22 Chloride 109 mmol/L (98-107) H 09/15/21 05:22 Carbon Dioxide 15.3 mmol/L (21-32) L 09/15/21 05:22 BUN 46 mg/dL (7-18) H 09/15/21 05:22 Creatinine 5.28 mg/dL (0.55-1.02) H 09/15/21 05:22 Est GFR (MDRD) Af Amer 10 (>60) L 09/15/21 05:22 Est GFR (MDRD) Non-Af 9 (>60) L 09/15/21 05:22 Glucose 90 mg/dL (65-99) 09/15/21 05:22 POC Glucose (mg/dL) 106 mg/dL (65-99) H 09/15/21 17:02 Lactic Acid 0.5 mmol/L (0.4-2.0) 09/14/21 18:32 Calcium 7.5 mg/dL (8.5-10.1) L 09/15/21 05:22 Corrected Calcium 9.3 mg/dL (8.5-10.1) 09/15/21 05:22 Total Bilirubin 0.20 mg/dL (0.2-1.0) 09/15/21 05:22 AST 19 Units/L (15-37) 09/15/21 05:22 ALT 13 Units/L (12-78) 09/15/21 05:22 Alkaline Phosphatase 83 Units/L (46-116) 09/15/21 05:22 Total Protein 5.4 g/dL (6.4-8.2) L 09/15/21 05:22 Albumin 1.7 g/dL (3.4-5.0) L 09/15/21 05:22 Globulin 3.7 g/dL (2.5-4.5) 09/15/21 05:22 Albumin/Globulin Ratio 0.5 Ratio (1.1-2.1) L 09/15/21 05:22 SARS-CoV-2 (PCR) Negative (NEGATIVE) 09/14/21 14:40 Plan (1) UTI (urinary tract infection): Status: Acute Qualifiers: Hematuria presence: without hematuria Urinary tract infection type: site unspecified Qualified Code(s): N39.0 - Urinary tract infection, site not specified Plan: IV Zosyn. (2) Pneumonia: Status: Acute Plan: IV Zosyn. Recheck chest x-ray again tomorrow morning. (3) CKD (chronic kidney disease) stage 3, GFR 30-59 ml/min: Status: Acute Plan: IV hydration. Recheck CMP in a.m. patient was hep-locked this mo rning so I started her IV fluid at 125 cc an hour. Hopefully this will help bring her BUN and creatinine down by tomorrow morning. Follow-up with that on a CMP blood test.
[2021-09-15] MEDS: MIRALAX POWDER (1 DOSE 17 G) PO SCH (21:04)
[2021-09-15] MEDS: ZOLOFT PO SCH (21:06)
[2021-09-16] MEDS: NS 1,000 ML IV 1,000 ML IV SCH ×6 (00:23→21:00)
[2021-09-16] MEDS: XOPENEX 1.25 MG/3 ML NEBULE NEB SCH ×4 (00:24→17:30)
[2021-09-16] MEDS: ZOSYN VIAL 2.25 GRAMS 2.25 G in NS 100 ML IV 100 ML IV SCH ×3 (06:12→21:00)
[2021-09-16 06:14] LABS: BASOPHILS # (AUTO) 0.1 X10^3/uL (0.0-0.1); BASOPHILS % (AUTO) 1.1 % (0.2-1.0); EOSINOPHILS # (AUTO) 0.2 x10^3/uL (0.0-0.2); EOSINOPHILS % (AUTO) 2.6 % (0.9-2.9); HEMATOCRIT 23.8 % (36.0-47.0); HEMOGLOBIN 8.1 g/dL (12.0-16.0); LYMPHOCYTES # (AUTO) 0.6 X10^3/uL (1.3-2.9); LYMPHOCYTES % (AUTO) 8.4 % (21.0-51.0); MEAN CORPUSCULAR HEMOGLOBIN 32.1 pg (27.0-34.0); MEAN CORPUSCULAR HGB CONC 34.1 g/dL (33.0-35.0); MEAN CORPUSCULAR VOLUME 94.1 fL (80.0-100.0); MEAN PLATELET VOLUME 8.9 fL (7.4-11.0); MONOCYTES # (AUTO) 0.5 x10^3/uL (0.3-0.8); MONOCYTES % (AUTO) 6.5 % (0.0-13.0); NEUTROPHILS # (AUTO) 6.2 x10^3/uL (2.2-4.8); NEUTROPHILS % (AUTO) 81.4 % (42.0-75.0); RED BLOOD COUNT 2.53 X10^6/uL (3.5-5.4); RED CELL DISTRIBUTION WIDTH 16.3 % (11.6-16.5); WHITE BLOOD COUNT 7.6 X10^3/uL (3.6-10.0)
[2021-09-16 06:34] LABS: ALANINE AMINOTRANSFERASE 14 Units/L (12-78); ALBUMIN 1.7 g/dL (3.4-5.0); ALKALINE PHOSPHATASE 79 Units/L (46-116); ASPARTATE AMINO TRANSFERASE 21 Units/L (15-37); BLOOD UREA NITROGEN 52 mg/dL (7-18); CALCIUM 7.4 mg/dL (8.5-10.1); CHLORIDE 109 mmol/L (98-107); COR CA(FOR HYPOALB) 9.2 mg/dL (8.5-10.1); MAGNESIUM 1.6 mg/dL (1.7-2.9); SODIUM 135 mmol/L (136-145); TOTAL PROTEIN 5.7 g/dL (6.4-8.2); eGFR NON BLACK RACES 8 (>60)
--- NOTE | 2021-09-16 06:43 | RAD ---
HISTORYFollow up pneumoniaSTUDYPortable AP [id number]/2022FINDINGSThere is no significant change in appearance of the chest. Heart size is similar as is the extent and distribution of bilateral pulmonary infiltrates. No additional abnormality is noted.IMPRESSIONNo change in appearance of bilateral pneumonic infiltrates.Electronically signed by: SILVERIO MERINO (Sep 16, 2021 06:42:00)
[2021-09-16 06:47] LABS: CARBON DIOXIDE 13.1 mmol/L (21-32)
[2021-09-16 06:51] LABS: BAND NEUTROPHILS % 3 % (0-10); PLATELET MORPHOLOGY COMMENT NORMAL (NORMAL)
[2021-09-16] MEDS: PROTONIX INJ 40 MG VIAL IVP SCH (08:35)
[2021-09-16] MEDS: PULMICORT NEB TX 0.5 MG NEB SCH ×2 (09:15→21:00)
[2021-09-16] MEDS ORDERED: NS 1,000 ML IV 1,000 ML IV ONE (09:23)
[2021-09-16] MEDS: CYTOTEC PO SCH ×2 (11:00→20:52)
[2021-09-16] MEDS: ACTOS PO SCH (11:00)
--- NOTE | 2021-09-16 11:07 | RAD ---
HISTORYPossible pneumoniaSTUDYAP [id number]/05/2022 6:08 a.m.FINDINGSBilateral infiltrates are again noted, similar in the medial right lower lung but increasing in the left mid zone. Heart size is similar. No pleural fluid is seen.IMPRESSIONPersistent findings of pneumonia with interval increase in the left midlung component since earlier exam today.Electronically signed by: SILVERIO MERINO (Sep 16, 2021 11:05:57)
[2021-09-16] MEDS: ZOLOFT PO SCH (20:52)
[2021-09-16] MEDS: MIRALAX POWDER (1 DOSE 17 G) PO SCH (20:56)
[2021-09-17] MEDS: NS 1,000 ML IV 1,000 ML IV SCH (00:33)
[2021-09-17] MEDS: XOPENEX 1.25 MG/3 ML NEBULE NEB SCH ×4 (00:37→18:26)
[2021-09-17 05:55] LABS: BASOPHILS % (AUTO) 0.7 % (0.2-1.0); EOSINOPHILS # (AUTO) 0.2 x10^3/uL (0.0-0.2); EOSINOPHILS % (AUTO) 3.3 % (0.9-2.9); LYMPHOCYTES # (AUTO) 0.9 X10^3/uL (1.3-2.9); LYMPHOCYTES % (AUTO) 14.6 % (21.0-51.0); MEAN CORPUSCULAR HEMOGLOBIN 31.9 pg (27.0-34.0); MEAN CORPUSCULAR HGB CONC 33.8 g/dL (33.0-35.0); MEAN CORPUSCULAR VOLUME 94.2 fL (80.0-100.0); MEAN PLATELET VOLUME 8.9 fL (7.4-11.0); MONOCYTES # (AUTO) 0.4 x10^3/uL (0.3-0.8); MONOCYTES % (AUTO) 7.4 % (0.0-13.0); NEUTROPHILS # (AUTO) 4.4 x10^3/uL (2.2-4.8); RED BLOOD COUNT 2.11 X10^6/uL (3.5-5.4)
[2021-09-17 06:06] LABS: ALANINE AMINOTRANSFERASE 12 Units/L (12-78); ALBUMIN 1.5 g/dL (3.4-5.0); ALKALINE PHOSPHATASE 69 Units/L (46-116); ASPARTATE AMINO TRANSFERASE 20 Units/L (15-37); BLOOD UREA NITROGEN 52 mg/dL (7-18); CALCIUM 7.3 mg/dL (8.5-10.1); CHLORIDE 109 mmol/L (98-107); COR CA(FOR HYPOALB) 9.3 mg/dL (8.5-10.1); CREATININE 5.53 mg/dL (0.55-1.02); HEMATOCRIT 19.8 % (36.0-47.0); HEMOGLOBIN 6.7 g/dL (12.0-16.0); SODIUM 135 mmol/L (136-145); TOTAL PROTEIN 5.3 g/dL (6.4-8.2); eGFR NON BLACK RACES 8 (>60)
[2021-09-17 06:16] LABS: CARBON DIOXIDE 12.7 mmol/L (21-32)
[2021-09-17] MEDS: ZOSYN VIAL 2.25 GRAMS 2.25 G in NS 100 ML IV 100 ML IV SCH ×3 (06:41→22:25)
[2021-09-17] MEDS ORDERED: DIPRIVAN VIAL 20 ML ONE (08:16)
[2021-09-17] MEDS: PULMICORT NEB TX 0.5 MG NEB SCH ×2 (08:20→20:54)
[2021-09-17] MEDS ORDERED: XYLOCAINE 2 % (PLAIN) ONE (08:28)
[2021-09-17] MEDS: ACTOS PO SCH (11:34)
[2021-09-17] MEDS: CYTOTEC PO SCH ×2 (11:34→21:24)
[2021-09-17] MEDS: PROTONIX TAB 40 MG PO SCH (11:35)
[2021-09-17] MEDS ORDERED: NS 250 ML IV 250 ML IV ONE (11:57)
[2021-09-17] MEDS: CARAFATE PO SCH ×2 (14:10→22:25)
[2021-09-17] MEDS: ZOLOFT PO SCH (21:24)
[2021-09-17] MEDS: MIRALAX POWDER (1 DOSE 17 G) PO SCH (21:24)
[2021-09-18] MEDS: XOPENEX 1.25 MG/3 ML NEBULE NEB SCH ×4 (00:13→16:29)
[2021-09-18] MEDS: NS 1,000 ML IV 1,000 ML IV SCH ×4 (00:45→16:51)
[2021-09-18] MEDS ORDERED: ZOFRAN INJ 4 MG VIAL IVP PRN (02:26)
[2021-09-18 04:25] LABS: MEAN PLATELET VOLUME 8.2 fL (7.4-11.0)
[2021-09-18 04:28] LABS: BASOPHILS # (AUTO) 0.1 X10^3/uL (0.0-0.1); BASOPHILS % (AUTO) 0.5 % (0.2-1.0); EOSINOPHILS # (AUTO) 0.1 x10^3/uL (0.0-0.2); EOSINOPHILS % (AUTO) 1.3 % (0.9-2.9); LYMPHOCYTES # (AUTO) 0.5 X10^3/uL (1.3-2.9); LYMPHOCYTES % (AUTO) 5.5 % (21.0-51.0); MEAN CORPUSCULAR HEMOGLOBIN 30.9 pg (27.0-34.0); MEAN CORPUSCULAR HGB CONC 34.2 g/dL (33.0-35.0); MEAN CORPUSCULAR VOLUME 90.5 fL (80.0-100.0); MONOCYTES # (AUTO) 0.6 x10^3/uL (0.3-0.8); MONOCYTES % (AUTO) 6.4 % (0.0-13.0); NEUTROPHILS # (AUTO) 8.4 x10^3/uL (2.2-4.8); NEUTROPHILS % (AUTO) 86.3 % (42.0-75.0); RED CELL DISTRIBUTION WIDTH 18.1 % (11.6-16.5); WHITE BLOOD COUNT 9.8 X10^3/uL (3.6-10.0)
[2021-09-18 04:33] LABS: HEMOGLOBIN 9.6 g/dL (12.0-16.0)
[2021-09-18 04:36] LABS: ALANINE AMINOTRANSFERASE 15 Units/L (12-78); ALBUMIN 1.8 g/dL (3.4-5.0); ALKALINE PHOSPHATASE 81 Units/L (46-116); ASPARTATE AMINO TRANSFERASE 22 Units/L (15-37); BLOOD UREA NITROGEN 51 mg/dL (7-18); CALCIUM 7.6 mg/dL (8.5-10.1); CHLORIDE 110 mmol/L (98-107); COR CA(FOR HYPOALB) 9.4 mg/dL (8.5-10.1); MAGNESIUM 1.7 mg/dL (1.7-2.9); SODIUM 137 mmol/L (136-145); TOTAL PROTEIN 6.1 g/dL (6.4-8.2); eGFR NON BLACK RACES 9 (>60)
[2021-09-18 04:38] LABS: CARBON DIOXIDE 14.9 mmol/L (21-32)
[2021-09-18 05:01] LABS: BAND NEUTROPHILS % 6 % (0-10); METAMYELOCYTES % 4
[2021-09-18 05:02] LABS: ANISOCYTOSIS SLIGHT; PLATELET MORPHOLOGY COMMENT NORMAL (NORMAL)
[2021-09-18] MEDS: CARAFATE PO SCH ×3 (05:45→21:34)
[2021-09-18] MEDS: ZOSYN VIAL 2.25 GRAMS 2.25 G in NS 100 ML IV 100 ML IV SCH ×3 (05:46→21:34)
[2021-09-18] MEDS: PULMICORT NEB TX 0.5 MG NEB SCH ×2 (08:24→20:15)
--- NOTE | 2021-09-18 10:14 | RAD ---
CHEST, 1 VIEWHISTORY: WHEEZING, EDEMAStudy: Single view of the chest.Comparison:NoneFindings:The cardiomediastinal silhouette is normal.Streaky bilateral space opacities most notable in the right perihilar region and left midlung. Osseous structures demonstrate no acute abnormality.IMPRESSION:1. Findings concerning for multifocal pneumonia.Electronically signed by: ROBBY CEDEÑO (Sep 18, 2021 10:11:59)
[2021-09-18] MEDS: ACTOS PO SCH (10:53)
[2021-09-18] MEDS: PROTONIX TAB 40 MG PO SCH (10:54)
[2021-09-18] MEDS: CYTOTEC PO SCH ×2 (10:54→21:33)
[2021-09-18] MEDS: MIRALAX POWDER (1 DOSE 17 G) PO SCH (21:33)
[2021-09-18] MEDS: ZOLOFT PO SCH (21:34)
[2021-09-19] MEDS: MAGNESIUM SULFATE 1 GRAM/100 mL PREMIX 1 G/100 ML BAG IV PRN ×2 (00:03→01:05)
[2021-09-19] MEDS: XOPENEX 1.25 MG/3 ML NEBULE NEB SCH ×4 (00:15→16:42)
[2021-09-19] MEDS: ZOSYN VIAL 2.25 GRAMS 2.25 G in NS 100 ML IV 100 ML IV SCH ×3 (05:14→21:03)
[2021-09-19] MEDS: CARAFATE PO SCH ×3 (05:16→21:02)
[2021-09-19 06:28] LABS: BASOPHILS % (AUTO) 0.7 % (0.2-1.0); EOSINOPHILS # (AUTO) 0.2 x10^3/uL (0.0-0.2); EOSINOPHILS % (AUTO) 2.5 % (0.9-2.9); HEMATOCRIT 24.7 % (36.0-47.0); HEMOGLOBIN 8.3 g/dL (12.0-16.0); LYMPHOCYTES # (AUTO) 0.7 X10^3/uL (1.3-2.9); LYMPHOCYTES % (AUTO) 10.1 % (21.0-51.0); MEAN CORPUSCULAR HEMOGLOBIN 30.4 pg (27.0-34.0); MEAN CORPUSCULAR HGB CONC 33.5 g/dL (33.0-35.0); MEAN CORPUSCULAR VOLUME 90.7 fL (80.0-100.0); MEAN PLATELET VOLUME 8.3 fL (7.4-11.0); MONOCYTES # (AUTO) 0.5 x10^3/uL (0.3-0.8); MONOCYTES % (AUTO) 6.6 % (0.0-13.0); NEUTROPHILS # (AUTO) 5.6 x10^3/uL (2.2-4.8); NEUTROPHILS % (AUTO) 80.1 % (42.0-75.0); RED BLOOD COUNT 2.72 X10^6/uL (3.5-5.4); RED CELL DISTRIBUTION WIDTH 17.4 % (11.6-16.5)
[2021-09-19 06:52] LABS: ALANINE AMINOTRANSFERASE 13 Units/L (12-78); ALBUMIN 1.6 g/dL (3.4-5.0); ALKALINE PHOSPHATASE 70 Units/L (46-116); ASPARTATE AMINO TRANSFERASE 21 Units/L (15-37); BLOOD UREA NITROGEN 51 mg/dL (7-18); CALCIUM 7.7 mg/dL (8.5-10.1); CHLORIDE 111 mmol/L (98-107); COR CA(FOR HYPOALB) 9.6 mg/dL (8.5-10.1); CREATININE 5.04 mg/dL (0.55-1.02); MAGNESIUM 2.2 mg/dL (1.7-2.9); SODIUM 136 mmol/L (136-145); TOTAL PROTEIN 5.7 g/dL (6.4-8.2); eGFR NON BLACK RACES 9 (>60)
[2021-09-19 07:01] LABS: CARBON DIOXIDE 12.6 mmol/L (21-32)
[2021-09-19 07:35] LABS: ANISOCYTOSIS SLIGHT; BAND NEUTROPHILS % 13 % (0-10); PLATELET MORPHOLOGY COMMENT NORMAL (NORMAL)
[2021-09-19 07:36] LABS: METAMYELOCYTES % 1
[2021-09-19] MEDS: CYTOTEC PO SCH ×2 (08:06→20:00)
[2021-09-19] MEDS: ACTOS PO SCH (08:06)
[2021-09-19] MEDS: PROTONIX TAB 40 MG PO SCH (08:07)
[2021-09-19] MEDS: PULMICORT NEB TX 0.5 MG NEB SCH ×2 (08:42→20:50)
[2021-09-19] MEDS: NS 1,000 ML IV 1,000 ML IV SCH ×3 (11:05→19:26)
[2021-09-19] MEDS: MIRALAX POWDER (1 DOSE 17 G) PO SCH (20:29)
[2021-09-19] MEDS: ZOLOFT PO SCH (20:29)
[2021-09-20] MEDS: NS 1,000 ML IV 1,000 ML IV SCH ×2 (00:03→17:47)
[2021-09-20] MEDS: XOPENEX 1.25 MG/3 ML NEBULE NEB SCH ×4 (00:05→18:05)
[2021-09-20] MEDS: CARAFATE PO SCH ×3 (05:00→21:49)
[2021-09-20] MEDS: ZOSYN VIAL 2.25 GRAMS 2.25 G in NS 100 ML IV 100 ML IV SCH ×3 (05:00→21:49)
[2021-09-20 05:30] LABS: BASOPHILS % (AUTO) 0.4 % (0.2-1.0); EOSINOPHILS # (AUTO) 0.2 x10^3/uL (0.0-0.2); EOSINOPHILS % (AUTO) 2.8 % (0.9-2.9); HEMATOCRIT 25.9 % (36.0-47.0); HEMOGLOBIN 8.9 g/dL (12.0-16.0); LYMPHOCYTES # (AUTO) 0.7 X10^3/uL (1.3-2.9); LYMPHOCYTES % (AUTO) 8.6 % (21.0-51.0); MEAN CORPUSCULAR HEMOGLOBIN 31.1 pg (27.0-34.0); MEAN CORPUSCULAR HGB CONC 34.3 g/dL (33.0-35.0); MEAN CORPUSCULAR VOLUME 90.7 fL (80.0-100.0); MEAN PLATELET VOLUME 7.9 fL (7.4-11.0); MONOCYTES # (AUTO) 0.5 x10^3/uL (0.3-0.8); MONOCYTES % (AUTO) 6.4 % (0.0-13.0); NEUTROPHILS # (AUTO) 6.3 x10^3/uL (2.2-4.8); NEUTROPHILS % (AUTO) 81.8 % (42.0-75.0); RED BLOOD COUNT 2.85 X10^6/uL (3.5-5.4); RED CELL DISTRIBUTION WIDTH 17.2 % (11.6-16.5); WHITE BLOOD COUNT 7.6 X10^3/uL (3.6-10.0)
[2021-09-20 05:43] LABS: ALANINE AMINOTRANSFERASE 12 Units/L (12-78); ALBUMIN 1.7 g/dL (3.4-5.0); ALKALINE PHOSPHATASE 74 Units/L (46-116); ASPARTATE AMINO TRANSFERASE 20 Units/L (15-37); BLOOD UREA NITROGEN 51 mg/dL (7-18); CALCIUM 7.9 mg/dL (8.5-10.1); CHLORIDE 110 mmol/L (98-107); COR CA(FOR HYPOALB) 9.7 mg/dL (8.5-10.1); CREATININE 4.83 mg/dL (0.55-1.02); SODIUM 137 mmol/L (136-145); TOTAL PROTEIN 6.1 g/dL (6.4-8.2); eGFR NON BLACK RACES 9 (>60)
[2021-09-20 05:48] LABS: CARBON DIOXIDE 13.5 mmol/L (21-32)
[2021-09-20] MEDS ORDERED: D50W ABBOJECT SYR IV ONE (06:02)
[2021-09-20 06:03] LABS: BAND NEUTROPHILS % 2 % (0-10); METAMYELOCYTES % 3; MYELOCYTES % 1
[2021-09-20 06:04] LABS: PLATELET MORPHOLOGY COMMENT NORMAL (NORMAL)
[2021-09-20 06:05] LABS: ANISOCYTOSIS SLIGHT
[2021-09-20] MEDS: ACTOS PO SCH (08:40)
[2021-09-20] MEDS: PROTONIX TAB 40 MG PO SCH (08:40)
[2021-09-20] MEDS: CYTOTEC PO SCH ×2 (08:41→20:45)
[2021-09-20] MEDS: PULMICORT NEB TX 0.5 MG NEB SCH ×2 (09:44→20:05)
[2021-09-20] MEDS: MIRALAX POWDER (1 DOSE 17 G) PO SCH (20:45)
[2021-09-20] MEDS: ZOLOFT PO SCH (20:53)
[2021-09-21] MEDS: XOPENEX 1.25 MG/3 ML NEBULE NEB SCH ×4 (00:05→17:55)
[2021-09-21 05:11] LABS: BASOPHILS % (AUTO) 0.8 % (0.2-1.0); EOSINOPHILS # (AUTO) 0.2 x10^3/uL (0.0-0.2); HEMATOCRIT 24.4 % (36.0-47.0); HEMOGLOBIN 8.3 g/dL (12.0-16.0); LYMPHOCYTES # (AUTO) 0.6 X10^3/uL (1.3-2.9); LYMPHOCYTES % (AUTO) 10.2 % (21.0-51.0); MEAN CORPUSCULAR HEMOGLOBIN 30.9 pg (27.0-34.0); MEAN CORPUSCULAR HGB CONC 33.9 g/dL (33.0-35.0); MEAN CORPUSCULAR VOLUME 91.2 fL (80.0-100.0); MONOCYTES # (AUTO) 0.3 x10^3/uL (0.3-0.8); MONOCYTES % (AUTO) 5.5 % (0.0-13.0); NEUTROPHILS % (AUTO) 80.5 % (42.0-75.0); RED BLOOD COUNT 2.67 X10^6/uL (3.5-5.4); RED CELL DISTRIBUTION WIDTH 17.4 % (11.6-16.5); WHITE BLOOD COUNT 6.3 X10^3/uL (3.6-10.0)
[2021-09-21 05:13] LABS: BLOOD UREA NITROGEN 48 mg/dL (7-18); CHLORIDE 112 mmol/L (98-107); CREATININE 4.56 mg/dL (0.55-1.02); SODIUM 137 mmol/L (136-145); eGFR NON BLACK RACES 10 (>60)
[2021-09-21 05:17] LABS: CARBON DIOXIDE 13.2 mmol/L (21-32)
[2021-09-21 05:44] LABS: BAND NEUTROPHILS % 3 % (0-10)
[2021-09-21 05:45] LABS: PLATELET MORPHOLOGY COMMENT NORMAL (NORMAL)
[2021-09-21 05:46] LABS: ANISOCYTOSIS SLIGHT
[2021-09-21 05:50] LABS: METAMYELOCYTES % 1
[2021-09-21] MEDS: CARAFATE PO SCH ×3 (06:42→21:20)
[2021-09-21] MEDS: ZOSYN VIAL 2.25 GRAMS 2.25 G in NS 100 ML IV 100 ML IV SCH ×3 (06:42→21:19)
[2021-09-21] MEDS: ACTOS PO SCH (08:57)
[2021-09-21] MEDS: CYTOTEC PO SCH ×2 (08:58→21:18)
[2021-09-21] MEDS: PROTONIX TAB 40 MG PO SCH (08:59)
[2021-09-21] MEDS: PULMICORT NEB TX 0.5 MG NEB SCH (09:10)
--- NOTE | 2021-09-21 11:25 | PCM.PROG ---
Progress Note Progress Note for Day of Date of Exam: 09/20/21 Subjective Subjective: Patient alert and awake this morning. Hgb stable at 8.9. Patient has completed abx treatment for UTI and Pneumonia. She is stable to be discharged back to [facility]. Patient will resume her chronic home medications at the retirement. Past Medical Family Social History Allergies: Allergies No Known Drug Allergies Allergy (Verified 09/18/21 08:56) Review of Systems ROS: No change since H&P Vital Signs and I&O's Vital Signs: Temperature 98.7 F Pulse Rate [Right Brachial] 93 Pulse Rate 90 Respiratory Rate 20 Blood Pressure [Right Arm] 140/65 Blood Pressure [Left Arm] 144/63 Blood Pressure [Right Arm] 131/60 Blood Pressure [Left Arm] 140/75 Blood Pressure 124/58 O2 Sat by Pulse Oximetry 95 Intake and Output: Intake & Output 09/18/21 09/19/21 09/20/21 09/21/21 23:59 23:59 23:59 23:59 Intake Total 2660 / 2660 5580 / 5580 1583 / 1583 394 / 394 Balance 2660 / 2660 5580 / 5580 1583 / 1583 394 / 394 Physical Exam Oriented: Normal, Time, Person and Place Ear: Normal Nose: Normal Throat: Normal Cardiovascular: Normal : Normal Auscultation: Bowel Sounds: Normal Tenderness: Normal Skin: Normal Musculoskeletal: Normal Psychiatric: Normal Mood Description: Calm Affect: Normal Speech Pattern: Clear Laboratory and Diagnostics Result Diagrams: 09/21/21 04:15 09/21/21 04:15 Labs: 09/14/21 18:57 Blood Blood Culture - Final 09/14/21 18:32 Blood Blood Culture - Final Laboratory WBC 6.3 X10^3/uL (3.6-10.0) 09/21/21 04:15 RBC 2.67 X10^6/uL (3.5-5.4) L 09/21/21 04:15 Hgb 8.3 g/dL (12.0-16.0) L 09/21/21 04:15 Hct 24.4 % (36.0-47.0) L 09/21/21 04:15 MCV 91.2 fL (80.0-100.0) 09/21/21 04:15 MCH 30.9 pg (27.0-34.0) 09/21/21 04:15 MCHC 33.9 g/dL (33.0-35.0) 09/21/21 04:15 RDW 17.4 % (11.6-16.5) H 09/21/21 04:15 Plt Count 151 X10^3/uL (150.0-450.0) 09/21/21 04:15 Plt Count Comment Adequate (ADEQUATE) 09/21/21 04:15 MPV 8.0 fL (7.4-11.0) 09/21/21 04:15 Neut % (Auto) 80.5 % (42.0-75.0) H 09/21/21 04:15 Lymph % (Auto) 10.2 % (21.0-51.0) L 09/21/21 04:15 [place] % (Auto) 5.5 % (0.0-13.0) 09/21/21 04:15 Eos % (Auto) 3.0 % (0.9-2.9) H 09/21/21 04:15 Baso % (Auto) 0.8 % (0.2-1.0) 09/21/21 04:15 Neut # (Auto) 5.0 x10^3/uL (2.2-4.8) H 09/21/21 04:15 Lymph # (Auto) 0.6 X10^3/uL (1.3-2.9) L 09/21/21 04:15 [place] # (Auto) 0.3 x10^3/uL (0.3-0.8) 09/21/21 04:15 Eos # (Auto) 0.2 x10^3/uL (0.0-0.2) 09/21/21 04:15 Baso # (Auto) 0.0 X10^3/uL (0.0-0.1) 09/21/21 04:15 Absolute Nucleated RBC 0.1 /100WBC 09/21/21 04:15 Total Counted 100 09/21/21 04:15 Neutrophils % (Manual) 66 % (39-76) 09/21/21 04:15 Band Neutrophils % 3 % (0-10) 09/21/21 04:15 Lymphocytes % (Manual) 12 % (13-43) L 09/21/21 04:15 Monocytes % (Manual) 17 % (4-9) H 09/21/21 04:15 Eosinophils % (Manual) 1 % (0-6) 09/21/21 04:15 Metamyelocytes % 1 09/21/21 04:15 Myelocytes % 1 09/20/21 04:35 Atypical Lymphocytes Few A 09/21/21 04:15 Plt Morphology Comment Normal (NORMAL) 09/21/21 04:15 RBC Morphology Abnormal (NORMAL) A 09/21/21 04:15 Anisocytosis Slight A 09/21/21 04:15 Sodium 137 mmol/L (136-145) 09/21/21 04:15 Corrected Sodium TNP 09/21/21 04:15 Potassium 5.0 mmol/L (3.5-5.1) 09/21/21 04:15 Chloride 112 mmol/L (98-107) H 09/21/21 04:15 Carbon Dioxide 13.2 mmol/L (21-32) L* 09/21/21 04:15 BUN 48 mg/dL (7-18) H 09/21/21 04:15 Creatinine 4.56 mg/dL (0.55-1.02) H 09/21/21 04:15 Est GFR (MDRD) Af Amer 12 (>60) L 09/21/21 04:15 Est GFR (MDRD) Non-Af 10 (>60) L 09/21/21 04:15 Glucose 64 mg/dL (65-99) L 09/21/21 04:15 POC Glucose (mg/dL) 78 mg/dL (65-99) 09/18/21 11:39 Lactic Acid 0.5 mmol/L (0.4-2.0) 09/14/21 18:32 Calcium 8.0 mg/dL (8.5-10.1) L 09/21/21 04:15 Corrected Calcium 9.7 mg/dL (8.5-10.1) 09/20/21 04:35 Magnesium 2.0 mg/dL (1.7-2.9) 09/21/21 04:15 Total Bilirubin 0.30 mg/dL (0.2-1.0) 09/20/21 04:35 AST 20 Units/L (15-37) 09/20/21 04:35 ALT 12 Units/L (12-78) 09/20/21 04:35 Alkaline Phosphatase 74 Units/L (46-116) 09/20/21 04:35 Total Protein 6.1 g/dL (6.4-8.2) L 09/20/21 04:35 Albumin 1.7 g/dL (3.4-5.0) L 09/20/21 04:35 Globulin 4.4 g/dL (2.5-4.5) 09/20/21 04:35 Albumin/Globulin Ratio 0.4 Ratio (1.1-2.1) L 09/20/21 04:35 Carcinoembryonic Ag 2.9 ng/mL 09/16/21 15:51 Stool Description 50grs brown soft 09/19/21 16:20 Stl Occult Blood (IFOB) Positive (NEGATIVE) A 09/19/21 16:20 SARS-CoV-2 (PCR) Negative (NEGATIVE) 09/14/21 14:40 Tissue Pathology To follow 09/17/21 08:13 Blood Type A NEGATIVE 09/17/21 09:27 Antibody Screen Negative 09/17/21 09:27 Crossmatch See Detail 09/17/21 09:27 Plan (1) UTI (urinary tract infection): Status: Acute Qualifiers: Hematuria presence: with hematuria Urinary tract infection type: site unspecified Qualified Code(s): N39.0 - Urinary tract infection, site not specified; R31.9 - Hematuria, unspecified (2) Pneumonia: Status: Acute (3) CKD (chronic kidney disease) stage 3, GFR 30-59 ml/min: Status: Acute
--- NOTE | 2021-09-21 11:31 | RAD ---
HISTORYSOBSTUDYAP [id number]/2022FINDINGSSimilar and normal heart size. No change in extent or distribution of bilateral perihilar airspace involvement. The extreme upper and lower lungs are relatively clear. No new abnormality is noted.IMPRESSIONNo significant change in bilateral pneumonic infiltrates.Electronically signed by: SILVERIO MERINO (Sep 21, 2021 11:30:44)
--- NOTE | 2021-09-21 11:32 | PCM.PROG ---
Progress Note Progress Note for Day of Date of Exam: 09/21/21 Subjective Subjective: Patient was sent to [facility] yesterday but started having bile emesis, BP in the 200s and hypoxia so was sent back to the hospital. She was given phenergan. Her labs were repeated. Hgb was 9.8. She is feeling better this morning. No overnight emesis. She continue to have poor appetite and was noted to have low glucose this morning at 64. Labs/imaging reviewed: Hgb 8.3 K: 5.0 BUN/Cr: 48/4.56 FOBT + EGD 09/17/21: Erosive gastritis involving the fundus and to a lesser extent the proximal antrum. No ulcers. No active bleeding now. No neoplasm, varices, or esophagitis. Plan: will repeat CXR, wean O2 as tolerated to keep sats > 92%. Continue IV Zosyn and nebs. Add ensure. Hold oral hypoglycemic medications at this time. Will switch IVF to D5+NS. Continue pantoprazole and carafate. Continue zofran prn. Monitor H/H, transfuse < 8. Monitor AM labs. Past Medical Family Social History Allergies: Allergies No Known Drug Allergies Allergy (Verified 09/18/21 08:56) Review of Systems ROS: No change since H&P Vital Signs and I&O's Vital Signs: Temperature 98.7 F Pulse Rate [Right Brachial] 93 Pulse Rate 90 Respiratory Rate 20 Blood Pressure [Right Arm] 140/65 Blood Pressure [Left Arm] 144/63 Blood Pressure [Right Arm] 131/60 Blood Pressure [Left Arm] 140/75 Blood Pressure 124/58 O2 Sat by Pulse Oximetry 95 Intake and Output: Intake & Output 09/18/21 09/19/21 09/20/21 09/21/21 23:59 23:59 23:59 23:59 Intake Total 2660 / 2660 5580 / 5580 1583 / 1583 394 / 394 Balance 2660 / 2660 5580 / 5580 1583 / 1583 394 / 394 Physical Exam Oriented: Normal, Time, Person and Place Ear: Normal Nose: Normal Throat: Normal Cardiovascular: Normal Auscultation: Bowel Sounds: Normal Tenderness: Normal Skin: Normal Musculoskeletal: Normal Psychiatric: Normal Mood Description: Calm Affect: Normal Speech Pattern: Clear Laboratory and Diagnostics Result Diagrams: 09/21/21 04:15 09/21/21 04:15 Labs: 09/14/21 18:57 Blood Blood Culture - Final 09/14/21 18:32 Blood Blood Culture - Final Laboratory WBC 6.3 X10^3/uL (3.6-10.0) 09/21/21 04:15 RBC 2.67 X10^6/uL (3.5-5.4) L 09/21/21 04:15 Hgb 8.3 g/dL (12.0-16.0) L 09/21/21 04:15 Hct 24.4 % (36.0-47.0) L 09/21/21 04:15 MCV 91.2 fL (80.0-100.0) 09/21/21 04:15 MCH 30.9 pg (27.0-34.0) 09/21/21 04:15 MCHC 33.9 g/dL (33.0-35.0) 09/21/21 04:15 RDW 17.4 % (11.6-16.5) H 09/21/21 04:15 Plt Count 151 X10^3/uL (150.0-450.0) 09/21/21 04:15 Plt Count Comment Adequate (ADEQUATE) 09/21/21 04:15 MPV 8.0 fL (7.4-11.0) 09/21/21 04:15 Neut % (Auto) 80.5 % (42.0-75.0) H 09/21/21 04:15 Lymph % (Auto) 10.2 % (21.0-51.0) L 09/21/21 04:15 [place] % (Auto) 5.5 % (0.0-13.0) 09/21/21 04:15 Eos % (Auto) 3.0 % (0.9-2.9) H 09/21/21 04:15 Baso % (Auto) 0.8 % (0.2-1.0) 09/21/21 04:15 Neut # (Auto) 5.0 x10^3/uL (2.2-4.8) H 09/21/21 04:15 Lymph # (Auto) 0.6 X10^3/uL (1.3-2.9) L 09/21/21 04:15 [place] # (Auto) 0.3 x10^3/uL (0.3-0.8) 09/21/21 04:15 Eos # (Auto) 0.2 x10^3/uL (0.0-0.2) 09/21/21 04:15 Baso # (Auto) 0.0 X10^3/uL (0.0-0.1) 09/21/21 04:15 Absolute Nucleated RBC 0.1 /100WBC 09/21/21 04:15 Total Counted 100 09/21/21 04:15 Neutrophils % (Manual) 66 % (39-76) 09/21/21 04:15 Band Neutrophils % 3 % (0-10) 09/21/21 04:15 Lymphocytes % (Manual) 12 % (13-43) L 09/21/21 04:15 Monocytes % (Manual) 17 % (4-9) H 09/21/21 04:15 Eosinophils % (Manual) 1 % (0-6) 09/21/21 04:15 Metamyelocytes % 1 09/21/21 04:15 Myelocytes % 1 09/20/21 04:35 Atypical Lymphocytes Few A 09/21/21 04:15 Plt Morphology Comment Normal (NORMAL) 09/21/21 04:15 RBC Morphology Abnormal (NORMAL) A 09/21/21 04:15 Anisocytosis Slight A 09/21/21 04:15 Sodium 137 mmol/L (136-145) 09/21/21 04:15 Corrected Sodium TNP 09/21/21 04:15 Potassium 5.0 mmol/L (3.5-5.1) 09/21/21 04:15 Chloride 112 mmol/L (98-107) H 09/21/21 04:15 Carbon Dioxide 13.2 mmol/L (21-32) L* 09/21/21 04:15 BUN 48 mg/dL (7-18) H 09/21/21 04:15 Creatinine 4.56 mg/dL (0.55-1.02) H 09/21/21 04:15 Est GFR (MDRD) Af Amer 12 (>60) L 09/21/21 04:15 Est GFR (MDRD) Non-Af 10 (>60) L 09/21/21 04:15 Glucose 64 mg/dL (65-99) L 09/21/21 04:15 POC Glucose (mg/dL) 78 mg/dL (65-99) 09/18/21 11:39 Lactic Acid 0.5 mmol/L (0.4-2.0) 09/14/21 18:32 Calcium 8.0 mg/dL (8.5-10.1) L 09/21/21 04:15 Corrected Calcium 9.7 mg/dL (8.5-10.1) 09/20/21 04:35 Magnesium 2.0 mg/dL (1.7-2.9) 09/21/21 04:15 Total Bilirubin 0.30 mg/dL (0.2-1.0) 09/20/21 04:35 AST 20 Units/L (15-37) 09/20/21 04:35 ALT 12 Units/L (12-78) 09/20/21 04:35 Alkaline Phosphatase 74 Units/L (46-116) 09/20/21 04:35 Total Protein 6.1 g/dL (6.4-8.2) L 09/20/21 04:35 Albumin 1.7 g/dL (3.4-5.0) L 09/20/21 04:35 Globulin 4.4 g/dL (2.5-4.5) 09/20/21 04:35 Albumin/Globulin Ratio 0.4 Ratio (1.1-2.1) L 09/20/21 04:35 Carcinoembryonic Ag 2.9 ng/mL 09/16/21 15:51 Stool Description 50grs brown soft 09/19/21 16:20 Stl Occult Blood (IFOB) Positive (NEGATIVE) A 09/19/21 16:20 SARS-CoV-2 (PCR) Negative (NEGATIVE) 09/14/21 14:40 Tissue Pathology To follow 09/17/21 08:13 Blood Type A NEGATIVE 09/17/21 09:27 Antibody Screen Negative 09/17/21 09:27 Crossmatch See Detail 09/17/21 09:27 Plan (1) Hypertension: Status: Acute Qualifiers: Hypertension type: essential hypertension Qualified Code(s): I10 - Essential (primary) hypertension (2) Edema of both lower extremities: Status: Acute (3) UTI (urinary tract infection): Status: Acute Qualifiers: Hematuria presence: with hematuria Urinary tract infection type: site unspecified Qualified Code(s): N39.0 - Urinary tract infection, site not specified; R31.9 - Hematuria, unspecified (4) Anemia: Status: Acute Qualifiers: Anemia type: unspecified type Qualified Code(s): D64.9 - Anemia, unspecified (5) DM II (diabetes mellitus, type II), controlled: Status: Chronic Qualifiers: Diabetes mellitus complication status: with unspecified complications Diabetes mellitus ferry terminal supervisor insulin use: unspecified ferry terminal supervisor insulin use status Qualified Code(s): E11.8 - Type 2 diabetes mellitus with unspecified complications (6) Pneumonia: Status: Acute (7) CKD (chronic kidney disease) stage 3, GFR 30-59 ml/min: Status: Acute (8) Erosive gastritis: Status: Acute
[2021-09-21] MEDS: D5 NS 1,000 ML IV 1,000 ML IV SCH (13:30)
[2021-09-21] MEDS: NS 1,000 ML IV 1,000 ML IV SCH (13:31)
[2021-09-21] MEDS: ZOLOFT PO SCH (21:19)
[2021-09-21] MEDS: MIRALAX POWDER (1 DOSE 17 G) PO SCH (21:19)
[2021-09-22] MEDS: XOPENEX 1.25 MG/3 ML NEBULE NEB SCH ×4 (00:15→17:43)
[2021-09-22] MEDS: PULMICORT NEB TX 0.5 MG NEB SCH ×3 (00:15→20:31)
[2021-09-22] MEDS: D5 NS 1,000 ML IV 1,000 ML IV SCH ×2 (04:23→14:22)
[2021-09-22 04:36] LABS: HEMATOCRIT 23.8 % (36.0-47.0)
[2021-09-22 04:41] LABS: BLOOD UREA NITROGEN 48 mg/dL (7-18); CALCIUM 7.6 mg/dL (8.5-10.1); CARBON DIOXIDE 16.7 mmol/L (21-32); CHLORIDE 113 mmol/L (98-107); CREATININE 4.34 mg/dL (0.55-1.02); MAGNESIUM 1.9 mg/dL (1.7-2.9); SODIUM 138 mmol/L (136-145); eGFR NON BLACK RACES 11 (>60)
[2021-09-22 04:42] LABS: BASOPHILS # (AUTO) 0.1 X10^3/uL (0.0-0.1); EOSINOPHILS # (AUTO) 0.2 x10^3/uL (0.0-0.2); EOSINOPHILS % (AUTO) 3.6 % (0.9-2.9); HEMOGLOBIN 8.1 g/dL (12.0-16.0); LYMPHOCYTES # (AUTO) 0.7 X10^3/uL (1.3-2.9); LYMPHOCYTES % (AUTO) 12.1 % (21.0-51.0); MEAN CORPUSCULAR HEMOGLOBIN 31.1 pg (27.0-34.0); MEAN CORPUSCULAR HGB CONC 34.1 g/dL (33.0-35.0); MEAN CORPUSCULAR VOLUME 91.2 fL (80.0-100.0); MEAN PLATELET VOLUME 7.7 fL (7.4-11.0); MONOCYTES # (AUTO) 0.3 x10^3/uL (0.3-0.8); MONOCYTES % (AUTO) 6.3 % (0.0-13.0); NEUTROPHILS # (AUTO) 4.3 x10^3/uL (2.2-4.8); RED BLOOD COUNT 2.61 X10^6/uL (3.5-5.4); RED CELL DISTRIBUTION WIDTH 16.9 % (11.6-16.5); WHITE BLOOD COUNT 5.5 X10^3/uL (3.6-10.0)
[2021-09-22 05:15] LABS: ANISOCYTOSIS SLIGHT; BAND NEUTROPHILS % 3 % (0-10); BASOPHILS % (MANUAL) 1 % (0-1); METAMYELOCYTES % 2; PLATELET MORPHOLOGY COMMENT NORMAL (NORMAL)
[2021-09-22 05:16] LABS: BURR CELLS PRESENT
[2021-09-22] MEDS: CARAFATE PO SCH ×3 (05:46→20:52)
[2021-09-22] MEDS: ZOSYN VIAL 2.25 GRAMS 2.25 G in NS 100 ML IV 100 ML IV SCH ×3 (05:46→21:00)
[2021-09-22] MEDS: PROTONIX TAB 40 MG PO SCH (09:07)
[2021-09-22] MEDS: CYTOTEC PO SCH ×2 (09:07→20:51)
[2021-09-22 12:22] VITALS: BMI 42.2
[2021-09-22] MEDS ORDERED: TOPROL XL PO ONE (12:49)
[2021-09-22] MEDS: NORVASC TAB 10 MG PO SCH (12:51)
[2021-09-22] MEDS: ZESTRIL TAB 40 MG PO SCH (12:51)
[2021-09-22] MEDS: TOPROL XL PO SCH (12:52)
[2021-09-22] MEDS ORDERED: D5 NS 1,000 ML IV 1,000 ML IV ONE (13:07)
[2021-09-22] MEDS: APRESOLINE TAB 25 MG PO SCH ×2 (14:22→20:53)
[2021-09-22] MEDS ORDERED: BUTT CREAM (COMPOUND) TOP PRN (14:32)
[2021-09-22] MEDS: ZOLOFT PO SCH (20:51)
[2021-09-22] MEDS: MIRALAX POWDER (1 DOSE 17 G) PO SCH (20:59)
[2021-09-22] MEDS ORDERED: NS 250 ML IV 250 ML IV ONE (21:15)
--- NOTE | 2021-09-22 21:30 | PCM.PROG ---
Progress Note Progress Note for Day of Date of Exam: 09/22/21 Subjective Subjective: Patient is a 71 year old female from [place]. This morning she appears to have improved. Does not have any acute concerns, no acute events overnight. No overnight emesis. Labs/imaging reviewed: Hgb 8.1 K: 5.0 BUN/Cr: 48/4.34 FOBT + EGD 09/17/21: Erosive gastritis involving the fundus and to a lesser extent the proximal antrum. No ulcers. No active bleeding now. No neoplasm, varices, or esophagitis. CXR: no change in bilateral infiltrates Plan: Wean O2 as tolerated to keep sats > 92%. Continue IV Zosyn and nebs. Hold oral hypoglycemic medications at this time. Continue pantoprazole and carafate. Continue zofran prn. Monitor H/H, Will transfuse 1 unit packed red blood cells. Monitor AM labs. Past Medical Family Social History Allergies: Allergies No Known Drug Allergies Allergy (Verified 09/18/21 08:56) Review of Systems ROS: No change since H&P Vital Signs and I&O's Vital Signs: Temperature 98 F Pulse Rate [Left Brachial] 64 Pulse Rate [Right Brachial] 95 Pulse Rate 69 Respiratory Rate 22 Blood Pressure [Right Arm] 140/65 Blood Pressure [Left Arm] 153/76 Blood Pressure [Right Arm] 131/60 Blood Pressure [Left Arm] 140/75 Blood Pressure 124/58 O2 Sat by Pulse Oximetry 96 Intake and Output: Intake & Output 09/19/21 09/20/21 09/21/21 09/22/21 23:59 23:59 23:59 23:59 Intake Total 5580 / 5580 1583 / 1583 1054 / 1054 1631 / 1631 Balance 5580 / 5580 1583 / 1583 1054 / 1054 1631 / 1631 Physical Exam Oriented: Normal, Time, Person and Place Ear: Normal Nose: Normal Throat: Normal Cardiovascular: Normal : Normal Auscultation: Bowel Sounds: Normal Tenderness: Normal Skin: Normal Musculoskeletal: Normal Psychiatric: Normal Mood Description: Calm Affect: Normal Speech Pattern: Clear and Appropriate Laboratory and Diagnostics Result Diagrams: 09/22/21 04:20 09/22/21 04:20 Labs: 09/14/21 18:57 Blood Blood Culture - Final 09/14/21 18:32 Blood Blood Culture - Final Laboratory WBC 5.5 X10^3/uL (3.6-10.0) 09/22/21 04:20 RBC 2.61 X10^6/uL (3.5-5.4) L 09/22/21 04:20 Hgb 8.1 g/dL (12.0-16.0) L 09/22/21 04:20 Hct 23.8 % (36.0-47.0) L 09/22/21 04:20 MCV 91.2 fL (80.0-100.0) 09/22/21 04:20 MCH 31.1 pg (27.0-34.0) 09/22/21 04:20 MCHC 34.1 g/dL (33.0-35.0) 09/22/21 04:20 RDW 16.9 % (11.6-16.5) H 09/22/21 04:20 Plt Count 147 X10^3/uL (150.0-450.0) L 09/22/21 04:20 Plt Count Comment Decreased (ADEQUATE) A 09/22/21 04:20 MPV 7.7 fL (7.4-11.0) 09/22/21 04:20 Neut % (Auto) 77.0 % (42.0-75.0) H 09/22/21 04:20 Lymph % (Auto) 12.1 % (21.0-51.0) L 09/22/21 04:20 [place] % (Auto) 6.3 % (0.0-13.0) 09/22/21 04:20 Eos % (Auto) 3.6 % (0.9-2.9) H 09/22/21 04:20 Baso % (Auto) 1.0 % (0.2-1.0) 09/22/21 04:20 Neut # (Auto) 4.3 x10^3/uL (2.2-4.8) 09/22/21 04:20 Lymph # (Auto) 0.7 X10^3/uL (1.3-2.9) L 09/22/21 04:20 [place] # (Auto) 0.3 x10^3/uL (0.3-0.8) 09/22/21 04:20 Eos # (Auto) 0.2 x10^3/uL (0.0-0.2) 09/22/21 04:20 Baso # (Auto) 0.1 X10^3/uL (0.0-0.1) 09/22/21 04:20 Absolute Nucleated RBC 0.0 /100WBC 09/22/21 04:20 Total Counted 100 09/22/21 04:20 Neutrophils % (Manual) 65 % (39-76) 09/22/21 04:20 Band Neutrophils % 3 % (0-10) 09/22/21 04:20 Lymphocytes % (Manual) 14 % (13-43) 09/22/21 04:20 Monocytes % (Manual) 11 % (4-9) H 09/22/21 04:20 Eosinophils % (Manual) 4 % (0-6) 09/22/21 04:20 Basophils % (Manual) 1 % (0-1) 09/22/21 04:20 Metamyelocytes % 2 09/22/21 04:20 Myelocytes % 1 09/20/21 04:35 Atypical Lymphocytes Few A 09/21/21 04:15 Plt Morphology Comment Normal (NORMAL) 09/22/21 04:20 RBC Morphology Abnormal (NORMAL) A 09/22/21 04:20 Anisocytosis Slight A 09/22/21 04:20 [place] Cells Present 09/22/21 04:20 Sodium 138 mmol/L (136-145) 09/22/21 04:20 Corrected Sodium TNP 09/22/21 04:20 Potassium 5.0 mmol/L (3.5-5.1) 09/22/21 04:20 Chloride 113 mmol/L (98-107) H 09/22/21 04:20 Carbon Dioxide 16.7 mmol/L (21-32) L 09/22/21 04:20 BUN 48 mg/dL (7-18) H 09/22/21 04:20 Creatinine 4.34 mg/dL (0.55-1.02) H 09/22/21 04:20 Est GFR (MDRD) Af Amer 13 (>60) L 09/22/21 04:20 Est GFR (MDRD) Non-Af 11 (>60) L 09/22/21 04:20 Glucose 88 mg/dL (65-99) 09/22/21 04:20 POC Glucose (mg/dL) 103 mg/dL (65-99) H 09/21/21 19:10 Lactic Acid 0.5 mmol/L (0.4-2.0) 09/14/21 18:32 Calcium 7.6 mg/dL (8.5-10.1) L 09/22/21 04:20 Corrected Calcium 9.7 mg/dL (8.5-10.1) 09/20/21 04:35 Magnesium 1.9 mg/dL (1.7-2.9) 09/22/21 04:20 Total Bilirubin 0.30 mg/dL (0.2-1.0) 09/20/21 04:35 AST 20 Units/L (15-37) 09/20/21 04:35 ALT 12 Units/L (12-78) 09/20/21 04:35 Alkaline Phosphatase 74 Units/L (46-116) 09/20/21 04:35 Total Protein 6.1 g/dL (6.4-8.2) L 09/20/21 04:35 Albumin 1.7 g/dL (3.4-5.0) L 09/20/21 04:35 Globulin 4.4 g/dL (2.5-4.5) 09/20/21 04:35 Albumin/Globulin Ratio 0.4 Ratio (1.1-2.1) L 09/20/21 04:35 Carcinoembryonic Ag 2.9 ng/mL 09/16/21 15:51 Stool Description 50grs brown soft 09/19/21 16:20 Stl Occult Blood (IFOB) Positive (NEGATIVE) A 09/19/21 16:20 SARS-CoV-2 (PCR) Negative (NEGATIVE) 09/14/21 14:40 Tissue Pathology To follow 09/17/21 08:13 Blood Type A NEGATIVE 09/22/21 18:00 Antibody Screen Negative 09/22/21 18:00 Crossmatch See Detail 09/22/21 18:00 Plan (1) CKD (chronic kidney disease) stage 3, GFR 30-59 ml/min: Status: Acute
[2021-09-22] MEDS: NS 1,000 ML IV 1,000 ML IV SCH (22:51)
[2021-09-23] MEDS: XOPENEX 1.25 MG/3 ML NEBULE NEB SCH ×3 (00:45→12:20)
[2021-09-23 01:07] LABS: HEMATOCRIT 30.4 % (36.0-47.0)
[2021-09-23 01:08] LABS: HEMOGLOBIN 10.2 g/dL (12.0-16.0)
[2021-09-23] MEDS: D5 NS 1,000 ML IV 1,000 ML IV SCH (04:10)
[2021-09-23] MEDS: ZOSYN VIAL 2.25 GRAMS 2.25 G in NS 100 ML IV 100 ML IV SCH (05:21)
[2021-09-23] MEDS: CARAFATE PO SCH (05:21)
[2021-09-23] MEDS: APRESOLINE TAB 25 MG PO SCH (05:21)
[2021-09-23 06:16] LABS: BASOPHILS # (AUTO) 0.1 X10^3/uL (0.0-0.1); EOSINOPHILS # (AUTO) 0.4 x10^3/uL (0.0-0.2); EOSINOPHILS % (AUTO) 5.2 % (0.9-2.9); HEMATOCRIT 29.7 % (36.0-47.0); HEMOGLOBIN 10.1 g/dL (12.0-16.0); LYMPHOCYTES # (AUTO) 0.7 X10^3/uL (1.3-2.9); LYMPHOCYTES % (AUTO) 10.1 % (21.0-51.0); MEAN CORPUSCULAR HGB CONC 34.2 g/dL (33.0-35.0); MEAN CORPUSCULAR VOLUME 90.7 fL (80.0-100.0); MEAN PLATELET VOLUME 7.7 fL (7.4-11.0); MONOCYTES # (AUTO) 0.3 x10^3/uL (0.3-0.8); MONOCYTES % (AUTO) 4.4 % (0.0-13.0); NEUTROPHILS # (AUTO) 5.8 x10^3/uL (2.2-4.8); NEUTROPHILS % (AUTO) 79.3 % (42.0-75.0); RED BLOOD COUNT 3.27 X10^6/uL (3.5-5.4); RED CELL DISTRIBUTION WIDTH 17.6 % (11.6-16.5); WHITE BLOOD COUNT 7.3 X10^3/uL (3.6-10.0)
[2021-09-23 06:28] LABS: ALANINE AMINOTRANSFERASE 8 Units/L (12-78); ALBUMIN 1.7 g/dL (3.4-5.0); ALKALINE PHOSPHATASE 72 Units/L (46-116); ASPARTATE AMINO TRANSFERASE 23 Units/L (15-37); BLOOD UREA NITROGEN 44 mg/dL (7-18); CALCIUM 7.8 mg/dL (8.5-10.1); CHLORIDE 114 mmol/L (98-107); COR CA(FOR HYPOALB) 9.6 mg/dL (8.5-10.1); CREATININE 4.03 mg/dL (0.55-1.02); SODIUM 138 mmol/L (136-145); TOTAL PROTEIN 6.3 g/dL (6.4-8.2); eGFR NON BLACK RACES 12 (>60)
[2021-09-23 06:35] LABS: CARBON DIOXIDE 14.9 mmol/L (21-32)
[2021-09-23] MEDS: PULMICORT NEB TX 0.5 MG NEB SCH (08:10)
[2021-09-23] MEDS ORDERED: TOPROL XL PO ONE (08:46)
[2021-09-23] MEDS: TOPROL XL PO SCH (08:50)
[2021-09-23] MEDS: CYTOTEC PO SCH (10:15)
[2021-09-23] MEDS: NORVASC TAB 10 MG PO SCH (10:15)
[2021-09-23] MEDS: PROTONIX TAB 40 MG PO SCH (10:15)
[2021-09-23] MEDS: ZESTRIL TAB 40 MG PO SCH (10:15)
[2021-09-23 13:18] VITALS: BP 165/67
--- NOTE | 2021-09-23 14:26 | W.DIS.FURT ---
Summary of Discharge Admission Diagnosis Patient Problems (Updated 09/21/21 @ 11:35 by Angeles Arrieta) Hypertension (Acute) I10 Hypothyroidism (Acute) E03.9 Left hemiparesis (Acute) G81.94 Vital Signs: Vital Signs (72 hours) 09/20/21 16:00 09/20/21 19:00 09/20/21 20:00 Temperature 98.1 F 98.3 F Pulse Rate Pulse Rate [Left Brachial] Pulse Rate [Right Brachial] 91 H 91 H Respiratory Rate 22 20 Blood Pressure [Left Arm] Blood Pressure [Right Arm] 151/93 159/71 O2 Sat by Pulse Oximetry 94 L 96 Oxygen Delivery Method Nasal Cannula Nasal Cannula Nasal Cannula Oxygen Flow Rate 2 2 2 FIO2% 09/20/21 20:05 09/20/21 20:05 09/21/21 00:00 Temperature 98.6 F Pulse Rate 85 Pulse Rate [Left Brachial] Pulse Rate [Right Brachial] 87 Respiratory Rate 20 Blood Pressure [Left Arm] 162/73 Blood Pressure [Right Arm] O2 Sat by Pulse Oximetry 97 94 L Oxygen Delivery Method Nasal Cannula Nasal Cannula Oxygen Flow Rate 2 2 FIO2% 28 09/21/21 04:00 09/21/21 07:00 09/21/21 08:00 Temperature 98.1 F 98.7 F Pulse Rate Pulse Rate [Left Brachial] Pulse Rate [Right Brachial] 93 H 93 H Respiratory Rate 20 20 Blood Pressure [Left Arm] 144/63 Blood Pressure [Right Arm] 140/65 O2 Sat by Pulse Oximetry 93 L 95 Oxygen Delivery Method Nasal Cannula Nasal Cannula Nasal Cannula Oxygen Flow Rate 2 2 2 FIO2% 09/21/21 09:10 09/21/21 09:10 09/21/21 12:00 Temperature 97.9 F Pulse Rate 90 Pulse Rate [Left Brachial] Pulse Rate [Right Brachial] 87 Respiratory Rate 20 Blood Pressure [Left Arm] 170/84 Blood Pressure [Right Arm] O2 Sat by Pulse Oximetry 95 92 L Oxygen Delivery Method Nasal Cannula Nasal Cannula Oxygen Flow Rate 2 2 FIO2% 28 09/21/21 16:00 09/21/21 19:33 09/21/21 19:00 Temperature 98.1 F 98.9 F Pulse Rate Pulse Rate [Left Brachial] Pulse Rate [Right Brachial] 88 98 H Respiratory Rate 20 20 Blood Pressure [Left Arm] 141/65 174/75 Blood Pressure [Right Arm] O2 Sat by Pulse Oximetry 97 96 Oxygen Delivery Method Nasal Cannula Nasal Cannula Nasal Cannula Oxygen Flow Rate 2 2 2 FIO2% 09/22/21 00:00 09/22/21 00:15 09/22/21 00:15 Temperature 97.9 F Pulse Rate 85 Pulse Rate [Left Brachial] Pulse Rate [Right Brachial] 84 Respiratory Rate 20 Blood Pressure [Left Arm] 141/62 Blood Pressure [Right Arm] O2 Sat by Pulse Oximetry 95 95 Oxygen Delivery Method Nasal Cannula Nasal Cannula Oxygen Flow Rate 2 2 FIO2% 28 09/22/21 04:00 09/22/21 07:00 09/22/21 08:00 Temperature 98.5 F 98.6 F Pulse Rate Pulse Rate [Left Brachial] Pulse Rate [Right Brachial] 90 95 H Respiratory Rate 20 18 Blood Pressure [Left Arm] 138/63 181/75 Blood Pressure [Right Arm] O2 Sat by Pulse Oximetry 97 97 Oxygen Delivery Method Nasal Cannula Nasal Cannula Nasal Cannula Oxygen Flow Rate 2 2 2 FIO2% 09/22/21 12:00 09/22/21 09:15 09/22/21 09:15 Temperature 98.4 F Pulse Rate 95 H Pulse Rate [Left Brachial] 95 H Pulse Rate [Right Brachial] Respiratory Rate 20 Blood Pressure [Left Arm] 189/86 Blood Pressure [Right Arm] O2 Sat by Pulse Oximetry 95 97 Oxygen Delivery Method Nasal Cannula Nasal Cannula Oxygen Flow Rate 2 2 FIO2% 28 09/22/21 15:00 09/22/21 16:00 09/22/21 20:31 Temperature 98 F Pulse Rate Pulse Rate [Left Brachial] 64 Pulse Rate [Right Brachial] Respiratory Rate 22 Blood Pressure [Left Arm] 138/65 153/76 Blood Pressure [Right Arm] O2 Sat by Pulse Oximetry 97 Oxygen Delivery Method Nasal Cannula Nasal Cannula Oxygen Flow Rate 2 2 FIO2% 28 09/22/21 20:31 09/22/21 20:00 09/22/21 19:00 Temperature 97.7 F Pulse Rate 69 Pulse Rate [Left Brachial] 70 Pulse Rate [Right Brachial] Respiratory Rate 23 Blood Pressure [Left Arm] 146/65 Blood Pressure [Right Arm] O2 Sat by Pulse Oximetry 96 90 L Oxygen Delivery Method Nasal Cannula Nasal Cannula Oxygen Flow Rate 2 2 FIO2% 28 28 09/23/21 00:00 09/23/21 04:00 09/23/21 05:55 Temperature 97.6 F 98.0 F Pulse Rate Pulse Rate [Left Brachial] 67 65 Pulse Rate [Right Brachial] Respiratory Rate 22 22 Blood Pressure [Left Arm] 141/65 134/62 Blood Pressure [Right Arm] O2 Sat by Pulse Oximetry 96 96 Oxygen Delivery Method Nasal Cannula Nasal Cannula Nasal Cannula Oxygen Flow Rate 2 2 2 FIO2% 28 28 28 09/23/21 08:05 09/23/21 08:05 09/23/21 07:00 Temperature Pulse Rate 84 Pulse Rate [Left Brachial] Pulse Rate [Right Brachial] Respiratory Rate Blood Pressure [Left Arm] Blood Pressure [Right Arm] O2 Sat by Pulse Oximetry 95 Oxygen Delivery Method Nasal Cannula Nasal Cannula Oxygen Flow Rate 2 2 FIO2% 28 09/23/21 08:00 09/23/21 12:21 09/23/21 12:21 Temperature 98 F Pulse Rate 78 Pulse Rate [Left Brachial] 66 Pulse Rate [Right Brachial] Respiratory Rate 18 Blood Pressure [Left Arm] Blood Pressure [Right Arm] 146/64 O2 Sat by Pulse Oximetry 95 97 Oxygen Delivery Method Nasal Cannula Nasal Cannula Oxygen Flow Rate 2 FIO2% 28 09/23/21 12:00 Temperature 98 F Pulse Rate Pulse Rate [Left Brachial] 59 L Pulse Rate [Right Brachial] Respiratory Rate 22 Blood Pressure [Left Arm] Blood Pressure [Right Arm] 165/67 O2 Sat by Pulse Oximetry Oxygen Delivery Method Oxygen Flow Rate FIO2% Labs: Laboratory Last Values WBC 7.3 X10^3/uL (3.6-10.0) 09/23/21 05:13 RBC 3.27 X10^6/uL (3.5-5.4) L 09/23/21 05:13 Hgb 10.1 g/dL (12.0-16.0) L 09/23/21 05:13 Hct 29.7 % (36.0-47.0) L 09/23/21 05:13 MCV 90.7 fL (80.0-100.0) 09/23/21 05:13 MCH 31.0 pg (27.0-34.0) 09/23/21 05:13 MCHC 34.2 g/dL (33.0-35.0) 09/23/21 05:13 RDW 17.6 % (11.6-16.5) H 09/23/21 05:13 Plt Count 177 X10^3/uL (150.0-450.0) 09/23/21 05:13 Plt Count Comment Decreased (ADEQUATE) A 09/22/21 04:20 MPV 7.7 fL (7.4-11.0) 09/23/21 05:13 Neut % (Auto) 79.3 % (42.0-75.0) H 09/23/21 05:13 Lymph % (Auto) 10.1 % (21.0-51.0) L 09/23/21 05:13 [place] % (Auto) 4.4 % (0.0-13.0) 09/23/21 05:13 Eos % (Auto) 5.2 % (0.9-2.9) H 09/23/21 05:13 Baso % (Auto) 1.0 % (0.2-1.0) 09/23/21 05:13 Neut # (Auto) 5.8 x10^3/uL (2.2-4.8) H 09/23/21 05:13 Lymph # (Auto) 0.7 X10^3/uL (1.3-2.9) L 09/23/21 05:13 [place] # (Auto) 0.3 x10^3/uL (0.3-0.8) 09/23/21 05:13 Eos # (Auto) 0.4 x10^3/uL (0.0-0.2) H 09/23/21 05:13 Baso # (Auto) 0.1 X10^3/uL (0.0-0.1) 09/23/21 05:13 Absolute Nucleated RBC 0.1 /100WBC 09/23/21 05:13 Total Counted 100 09/22/21 04:20 Neutrophils % (Manual) 65 % (39-76) 09/22/21 04:20 Band Neutrophils % 3 % (0-10) 09/22/21 04:20 Lymphocytes % (Manual) 14 % (13-43) 09/22/21 04:20 Monocytes % (Manual) 11 % (4-9) H 09/22/21 04:20 Eosinophils % (Manual) 4 % (0-6) 09/22/21 04:20 Basophils % (Manual) 1 % (0-1) 09/22/21 04:20 Metamyelocytes % 2 09/22/21 04:20 Myelocytes % 1 09/20/21 04:35 Atypical Lymphocytes Few A 09/21/21 04:15 Plt Morphology Comment Normal (NORMAL) 09/22/21 04:20 RBC Morphology Abnormal (NORMAL) A 09/22/21 04:20 Anisocytosis Slight A 09/22/21 04:20 Tamia Cells Present 09/22/21 04:20 Sodium 138 mmol/L (136-145) 09/23/21 05:13 Corrected Sodium TNP 09/23/21 05:13 Potassium 4.6 mmol/L (3.5-5.1) 09/23/21 05:13 Chloride 114 mmol/L (98-107) H 09/23/21 05:13 Carbon Dioxide 14.9 mmol/L (21-32) L* 09/23/21 05:13 BUN 44 mg/dL (7-18) H 09/23/21 05:13 Creatinine 4.03 mg/dL (0.55-1.02) H 09/23/21 05:13 Est GFR (MDRD) Af Amer 14 (>60) L 09/23/21 05:13 Est GFR (MDRD) Non-Af 12 (>60) L 09/23/21 05:13 Glucose 91 mg/dL (65-99) 09/23/21 05:13 POC Glucose (mg/dL) 103 mg/dL (65-99) H 09/21/21 19:10 Lactic Acid 0.5 mmol/L (0.4-2.0) 09/14/21 18:32 Calcium 7.8 mg/dL (8.5-10.1) L 09/23/21 05:13 Corrected Calcium 9.6 mg/dL (8.5-10.1) 09/23/21 05:13 Magnesium 1.9 mg/dL (1.7-2.9) 09/22/21 04:20 Total Bilirubin 0.30 mg/dL (0.2-1.0) 09/23/21 05:13 AST 23 Units/L (15-37) 09/23/21 05:13 ALT 8 Units/L (12-78) L 09/23/21 05:13 Alkaline Phosphatase 72 Units/L (46-116) 09/23/21 05:13 Total Protein 6.3 g/dL (6.4-8.2) L 09/23/21 05:13 Albumin 1.7 g/dL (3.4-5.0) L 09/23/21 05:13 Globulin 4.6 g/dL (2.5-4.5) H 09/23/21 05:13 Albumin/Globulin Ratio 0.4 Ratio (1.1-2.1) L 09/23/21 05:13 Carcinoembryonic Ag 2.9 ng/mL 09/16/21 15:51 Stool Description 50grs brown soft 09/19/21 16:20 Stl Occult Blood (IFOB) Positive (NEGATIVE) A 09/19/21 16:20 SARS-CoV-2 (PCR) Negative (NEGATIVE) 09/14/21 14:40 Tissue Pathology To follow 09/17/21 08:13 Blood Type A NEGATIVE 09/22/21 18:00 Antibody Screen Negative 09/22/21 18:00 Crossmatch See Detail 09/22/21 18:00 Reason For Visit: PNEUMONIA, UTI, CHRONIC KIDNEY DISEASE Discharge Diagnosis All Active Problems (Updated 09/21/21 @ 11:35 by Angeles Arrieta) Erosive gastritis (Acute) Hypertension (Acute) Muscle strain of left thigh (Acute) Edema of both lower extremities (Acute) Left knee sprain (Acute) UTI (urinary tract infection) (Acute) Lower abdominal pain (Acute) Acute nontraumatic kidney injury (Acute) Volume depletion (Acute) Anemia (Acute) Left knee pain (Acute) HTN (hypertension) (Chronic) DM II (diabetes mellitus, type II), controlled (Chronic) Pneumonia (Acute) Acute UTI (Acute) CKD (chronic kidney disease) stage 3, GFR 30-59 ml/min (Acute) Hypothyroidism (Acute) Bronchitis (Acute) Stroke determined by clinical assessment (Acute) Type 2 diabetes mellitus (Acute) CKD (chronic kidney disease) stage 3, GFR 30-59 ml/min (Acute) Hypertensive emergency (Acute) Accelerated hypertension (Acute) Cardiomegaly (Acute) Chronic kidney disease (CKD) (Acute) Bradycardia (Acute) Acute thalamic infarction (Acute) Left hemiparesis (Acute) Plan of Treatment: Continue with present treatment and follow up plan. Pt is to keep follow up appointment as instructed and take medications as ordered. Discharge Medications Discharge Medications: No Known Drug Allergies Allergy (Verified 09/18/21 08:56) CONTINUE taking the following medications albuterol sulfate 2.5 mg/3 mL (0.083 %) solution for nebulization 3 ml inhalation PRN PRN 09/14/21 [History] gabapentin 100 mg capsule 200 mg PO TID 09/20/21 [History] New Prescriptions meclizine 12.5 mg tablet 12.5 mg PO BID PRN Dizziness #60 tabs 09/23/21 [Rx] ondansetron 4 mg disintegrating tablet 4 mg PO Q6H PRN Nausea #60 tabs 09/23/21 [Rx] Discharge Plan Discharge Plan Patient Disposition: XFER [facility] Condition: Stable Health Concerns: Post Hospitalization: new medications and changes needed to prevent readmission or further decline. Pt educated and given instructions on all concerns. Plan of Treatment: Continue with present treatment and follow up plan. Pt is to keep follow up appointment as instructed and take medications as ordered. Prescriptions: New meclizine 12.5 mg Tablet 12.5 mg PO BID PRN (Reason: Dizziness) Qty: 60 0RF ondansetron 4 mg Tablet,Disintegrating 4 mg PO Q6H PRN (Reason: Nausea) Qty: 60 0RF Continued pioglitazone 15 mg tablet 15 mg PO DAILY Rx Instructions: TAKE ONE TABLET BY MOUTH EVERY DAY pravastatin 40 mg tablet 40 mg PO HS Rx Instructions: TAKE ONE TABLET AT BEDTIME FOR CHOLESTEROL meloxicam 15 mg tablet 15 mg PO DAILY Rx Instructions: TAKE ONE TABLET EVERY DAY amlodipine 10 mg tablet 10 mg PO DAILY Rx Instructions: TAKE ONE TABLET BY MOUTH EVERY DAY promethazine 25 mg tablet 25 mg PO Q6H PRN (Reason: Nausea) Rx Instructions: TAKE 1/2-1 TABLET BY MOUTH EVERY 6 HOURS WHEN NECESSARY levothyroxine 150 mcg tablet 150 mcg PO DAILY Rx Instructions: TAKE ONE TABLET EVERY DAY lisinopril 40 mg tablet 40 mg PO DAILY Rx Instructions: TAKE ONE TABLET BY MOUTH EVERY DAY sertraline 50 mg tablet 50 mg PO HS Rx Instructions: TAKE ONE TABLET EVERY NIGHT AT BEDTIME hydralazine 100 mg tablet 100 mg PO TID Qty: 90 12RF polyethylene glycol 3350 17 gram Powder In Packet 17 g PO HS Qty: 600 12RF pantoprazole 40 mg Tablet,Delayed Release (Dr/Ec) 40 mg PO DAILY Qty: 30 0RF misoprostol 100 mcg Tablet 100 mcg PO BID Qty: 60 3RF metoprolol succinate 200 mg capsule,sprinkle,ER 24hr 200 mg PO DAILY Qty: 30 12RF albuterol sulfate 2.5 mg /3 mL (0.083 %) solution for nebulization 3 ml inhalation PRN PRN Label Comments: [NO ORIGINAL SIG] gabapentin 100 mg Capsule 200 mg PO TID Orders to Discharge Patient Discharge Orders: Discharge (Routine); Ordered 09/23/21 Ordered By: Angeles Arrieta Follow ups/Referrals Follow ups/Referrals: EDWARD GALLOWAY [Primary Care Provider] - 3 days SANCHEZ GIVENS [CONSULTING PHYSICIAN] - 10/01/21 2:00 pm (Referral sent with instructions to call [place] with appointment.) Instructions Activity Restrictions/Additional Instructions: Small meals Ensure 1 can TID Stand Alone Forms: Precautions for [facility], Patient Portal, Social Distancing
== END 2021-09-23 14:25 | DRG 194 ==
LOC: MED/SURG 11:17 → ER 11:17 → MED/SURG 15:00 → MERGE 09-16 10:00 → UNDODISIN 09-20 14:00
PROVIDERS: ADMIT Family Medicine; ATTEND Obstetrics & Gynecology Obstetrics
DX: E11.65 Type 2 diabetes mellitus with hyperglycemia; E86.0 Dehydration; I12.9 Hypertensive chronic kidney disease with stage 1 through stage 4 chronic kidney disease, or unspecified chronic kidney disease; K29.60 Other gastritis without bleeding; J18.8 Other pneumonia, unspecified organism; E03.8 Other specified hypothyroidism; N18.30 Chronic kidney disease, stage 3 unspecified; Z20.822 Contact with and (suspected) exposure to COVID-19; R06.02 Shortness of breath; R60.0 Localized edema; N39.0 Urinary tract infection, site not specified; D64.89 Other specified anemias; R31.9 Hematuria, unspecified